=== PATIENT | male | born 1975 | race Hispanic/Latino ===

== ENCOUNTER 2019-09-07 20:37 | Inpatient (IN) | payer BC, OTHER ==
[~2019-09-07 20:37] MED LIST: Heparin 1,000 UNITS/ML VIAL ONE
[2019-09-07] MEDS ORDERED: Promethazine HCl 12.5 MG in Sodium Chloride 0.9% 50 ML IVPB PRN (22:15)
[2019-09-07] MEDS ORDERED: hydrALAZINE 20 MG/ML VIAL SLOW IVP PRN (22:15)
[2019-09-07] MEDS ORDERED: Labetalol HCl 100 MG/20 ML VIAL SLOW IVP PRN (22:15)
[2019-09-07] MEDS ORDERED: cloNIDine 0.1 MG TAB PO PRN (22:15)
[2019-09-07] MEDS ORDERED: Dextrose 50% Abboject 50 ML SYRINGE SLOW IVP PRN (22:16)
[2019-09-07] MEDS ORDERED: Dextrose 5% in Water 1,000 ML IV PRN (22:16)
[2019-09-07] MEDS ORDERED: Senokot S 8.6-50 MG TAB PO PRN (22:24)
[2019-09-07] MEDS ORDERED: Bisacodyl 5 MG TAB PO PRN (22:24)
[2019-09-07] MEDS ORDERED: Bisacodyl 10 MG SUPP PR PRN (22:24)
--- NOTE | 2019-09-07 22:24 | PDOC.HHP ---
Hospitalist HPI - History of Present Illness Abdominal/L shoulder pain History of Present Illness: Patient is a 43 year old male with PMH non insulin dependant DM, HTN who presents as transfer from [facility] ER for L shoulder pain and abdominal pain x 1 day. Patient reports that he developed pain in L shoulder and epigastric associated with shortness of breath yesterday around 330pm, has been intermittent and colicky ever since, associated with shortness of breath and painful breathing, patient denies history of gallstones or abdominal pain after eating, he has not kept down any food since pain began, denies nausea/vomiting/chest pain/dizziness/syncope, no melena or red blood per mouth or anus. At [facility] ED patient found to have a fever to 102, he was unaware of this, initial covid ab screen negative but NAAT pending. His labs were significant for tbili 2.2, glucose 313, WBC 14. CT chest w/ contrast concerning for cholecystitis w hydropic gallbladder as well as hepatic steatosis. His temp was 102.6 on arrival with elevated HR to 126. 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 denies: cough, dry, hemoptysis, SOB with excertion, sputum, wheezing, other Cardiovascular: denies: chest pain, palpitations, orthopnea, paroxysmal noc. dyspnea, edema, light headedness, other Gastrointestinal: reports: abdominal pain. denies: nausea, vomiting, melena, hematochezia Genitourinary: denies: dysuria, frequency Musculoskeletal: reports: neck pain, shoulder pain Skin: denies: rash, lesions Neurological: denies: weakness, numbness All other systems reviewed; all pertinent +/- noted in HPI/Subj Hospitalist History - Past Medical History Other Medical History: DM HTN - Past Surgical History Other Surgical History: no relevant surgical history - Family History Family History: reports: no pertinent history - Social History Smoking Status: Never smoker Alcohol: reports: Rare Drugs: reports: none Hospitalist Results - Labs Additional comment: CT chest w/ contrast concerning for cholecystitis w hydropic gallbladder as well as hepatic steatosis. labs reviewed, see HPI for pertinent abnormal labs. Hospitalist H&P A/P - Plan Plan: Patient is a 43 year old male with PMH non insulin dependant DM, HTN who presents as transfer from [facility] for L shoulder pain and abdominal pain x 1 day. # suspected cholecystitis - CT w/ possible cholecystitis, also elevated Tbili, fever, shoulder pain which may be referred phrenic nerve pain. - admit to covid rule out unit - npo - Dr Hallman consulted by outside ED, will place consult and also consult Dr Handley of GI for ERCP needs - start zosyn, follow blood cultures - follow labs, unable to get lipase at OSH may have pancreatitis as well - IVF - US abdomen # hepatic steatosis - noted, outpatient weight loss recommended # sepsis - suspected due to cholecystitis and choledocolithiasis - treat as above - covid rule out and precautions ordered # DM - continue glipizide hold metformin, SSI # HTN - continue most HTN meds, PRN meds available
[2019-09-07 22:35] LABS: #Lymphocytes 0.9 thou/uL (1.20-3.40); #Neutrophils 10.3 thou/uL (1.40-6.50); %Basophils 0.1 % (0.0-1.0); %Lymphocytes 7.7 % (21.0-51.0); %Monocytes 8.3 % (0.0-10.0); %Neutrophils 83.8 % (42.0-75.0); Mean Corpuscular HGB CONC 34.6 g/dL (32.0-36.0); Mean Corpuscular Hemoglobin 31.8 pg (27.0-31.0); Mean Corpuscular Volume 91.9 fL (78.0-98.0); Mean Platelet Volume 8.3 fL (7.4-10.4); Platelet Count 187 thou/uL (130-400); RBC Distribution Width 11.5 % (11.5-14.5); Red Blood Cell (RBC) Count 5.05 mill/uL (4.70-6.10); White Blood Cell (WBC) Count 12.2 thou/uL (4.8-10.8)
[2019-09-07 22:41] LABS: INR-International Normal Ratio 1.1; Prothrombin Time 14.5 sec (12.0-14.7)
[2019-09-07 22:52] LABS: Lactic Acid 1.4 mmol/L (0.5-2.2)
[2019-09-07 22:57] LABS: ALT (SGPT) 22 U/L (8-55); AST (SGOT) 15 U/L (5-34); Albumin 3.8 g/dL (3.5-5.0); Alkaline Phosphatase 85 U/L (40-110); Anion Gap 14 mmol/L (10-20); BUN (Urea Nitrogen) 9 mg/dL (8.9-20.6); Bilirubin, Total 1.9 mg/dL (0.2-1.2); Calc. Creatinine Clearance 259 mL/min (70-130); Calcium 9.8 mg/dL (7.8-10.44); Carbon Dioxide 22 mmol/L (22-29); Chloride 96 mmol/L (98-107); Estimated GFR-MDRD Greater than 90; Glucose 275 mg/dL (70-105); Lipase 8 U/L (8-78); Magnesium 1.6 mg/dL (1.6-2.6); Potassium 3.4 mmol/L (3.5-5.1); Protein, Total 7.3 g/dL (6.0-8.3); Sodium 129 mmol/L (136-145)
[2019-09-07] MEDS: Piperacillin/Tazobactam 3.375 GM in Sodium Chloride 0.9% 100 ML IVPB SCH (23:08)
[2019-09-07] MEDS: HYDROcodone/Acetaminophen 5/325 mg Tablet PO PRN (23:09)
[2019-09-07] MEDS: Sodium Chloride 0.9% 1,000 ML IV SCH (23:09)
[2019-09-07 23:47] LABS: Hemoglobin A1c 8.4 % (4.0-6.0)
[2019-09-08 02:26] LABS: Bilirubin Negative (Negative); Blood, Urine Negative (Negative); Clarity Extra Turbid (Clear); Glucose, Urine (Dipstick) Greater than 1000 mg/dL (Negative); Leukocyte Negative Leu/uL (Negative); Nitrite Negative (Negative); Protein, Urine (Dipstick) 70 mg/dL (Neg-Trace); RBC/HPF None Seen HPF (0-3); Squamous Epithelial 0-3 HPF (0-3); Urobilinogen Normal mg/dL (Less than 2); WBC/HPF Greater than 50 HPF (0-3)
[2019-09-08 02:34] LABS: Yeast-Budding 2+ HPF (None Seen)
[2019-09-08 02:35] LABS: Bacteria/HPF Rare-Few HPF (None Seen); Urine Culture Reflex Yes Yes
[2019-09-08 05:08] LABS: #Monocytes 1.2 thou/uL (0.11-0.59); #Neutrophils 8.8 thou/uL (1.40-6.50); %Basophils 0.1 % (0.0-1.0); %Eosinophils 0.2 % (0.0-10.0); %Lymphocytes 9.3 % (21.0-51.0); %Monocytes 10.4 % (0.0-10.0); Hemoglobin 15.5 g/dL (14.0-18.0); Mean Corpuscular HGB CONC 32.6 g/dL (32.0-36.0); Mean Corpuscular Hemoglobin 30.4 pg (27.0-31.0); Mean Corpuscular Volume 93.4 fL (78.0-98.0); Mean Platelet Volume 8.5 fL (7.4-10.4); Platelet Count 178 thou/uL (130-400); RBC Distribution Width 11.7 % (11.5-14.5); Red Blood Cell (RBC) Count 5.09 mill/uL (4.70-6.10)
[2019-09-08] MEDS: Piperacillin/Tazobactam 3.375 GM in Sodium Chloride 0.9% 100 ML IVPB SCH ×3 (05:11→16:59)
[2019-09-08 05:25] LABS: ALT (SGPT) 19 U/L (8-55); AST (SGOT) 17 U/L (5-34); Albumin 3.7 g/dL (3.5-5.0); Alkaline Phosphatase 80 U/L (40-110); Anion Gap 13 mmol/L (10-20); BUN (Urea Nitrogen) 11 mg/dL (8.9-20.6); Bilirubin, Direct 0.9 mg/dL (0.1-0.3); Bilirubin, Total 1.9 mg/dL (0.2-1.2); Calc. Creatinine Clearance 272 mL/min (70-130); Calcium 9.3 mg/dL (7.8-10.44); Carbon Dioxide 24 mmol/L (22-29); Chloride 98 mmol/L (98-107); Estimated GFR-MDRD Greater than 90; Glucose 245 mg/dL (70-105); Potassium 3.7 mmol/L (3.5-5.1); Protein, Total 7.3 g/dL (6.0-8.3); Sodium 131 mmol/L (136-145)
[2019-09-08] MEDS: HYDROcodone/Acetaminophen 5/325 mg Tablet PO PRN ×2 (06:29→20:20)
[2019-09-08] MEDS: Carvedilol 6.25 MG TAB PO SCH ×2 (08:20→20:20)
[2019-09-08] MEDS ORDERED: Iopamidol-370 76% 500 ML 1 ML ONE (10:09)
--- NOTE | 2019-09-08 10:21 | CON ---
DATE OF CONSULTATION: 09/08/2019 CHIEF COMPLAINT: Left shoulder and chest pain. HISTORY OF PRESENT ILLNESS: Mr. Bonilla is a 43-year-old man with diabetes and hypertension and obesity, who woke up Wednesday with left shoulder pain. He went to the [facility] ER in [place], and was given some muscle relaxers and pain medicine. He left, and then later that afternoon, the pain worsened and he went back. He developed fever that afternoon. He was given Tylenol No. 3 and advised to follow up the next day. He had a COVID test that was negative. Yesterday, he went back to the ER. He had a CT scan of the chest performed to evaluate the left chest pain. This showed distension of the gallbladder with cholelithiasis and hepatic steatosis. The common bile duct was not commented on. His bilirubin was noted to be mildly elevated, however, his alkaline phosphatase and transaminases were normal. He was transferred to [place] for further evaluation. He reports that the pain is constant, dull aching in the left shoulder to left shoulder blade to the left pectoral area. The pain worsens with deep breath. He has had no associated nausea or abdominal pain. The pain is not affected by eating. He has had no diarrhea, constipation, or blood in the stool. He had a fever at the outside ER of 102 reportedly. His temperature here last night was 100.9 and currently is 99.5. PAST MEDICAL HISTORY: Hypertension, diabetes mellitus, obesity, hyperlipidemia. PAST SURGICAL HISTORY: Negative. FAMILY HISTORY: Negative for GI malignancy and negative for premature heart disease. HABITS: He does not smoke. He drinks 2 or 3 beers 1 or 2 days per week on weekends. No drugs. ALLERGIES: NO KNOWN DRUG ALLERGIES. MEDICATIONS: PRIOR TO ADMISSION: 1. Atorvastatin. 2. Glipizide. 3. Amlodipine. 4. Carvedilol. 5. Lisinopril with hydrochlorothiazide. 6. Metformin. CURRENT INPATIENT MEDICATIONS: 1. Zosyn. 2. MiraLAX. 3. Enoxaparin. 4. Atorvastatin. 5. Amlodipine. 6. Famotidine. 7. Glipizide. REVIEW OF SYSTEMS: Negative x10 systems reviewed except as stated in history of present illness. PHYSICAL EXAMINATION: VITAL SIGNS: Temperature 99.5, pulse 105, blood pressure 145/81. GENERAL: He is in no acute distress. Alert and oriented x3. HEENT: Eyes have no scleral icterus. Oropharynx is clear without lesions. No cervical or supraclavicular lymphadenopathy. LUNGS: Lungs are clear to auscultation bilaterally. HEART: Regular rate and rhythm without murmur. ABDOMEN: Soft, nontender, and nondistended. Bowel sounds are present. EXTREMITIES: No lower extremity edema. LABORATORY DATA: Sodium 131, potassium 3.7, CO2 24, BUN 11, creatinine 0.8, glucose 245. Hemoglobin A1c 8.4. Bilirubin 1.9, direct 0.9, AST 17, ALT 19, alkaline phosphatase 80, lipase 8. He had a CT scan at the outside emergency room of his chest that reportedly showed hydrops of the gallbladder and cholelithiasis. The bile duct was not commented on, and a fatty liver was seen. IMPRESSION: 1. Left-sided chest pain. This is in the setting of fever and tachycardia. He has a mildly elevated white blood cell count of 11.0. He has left chest pain with inspiration, but no other symptoms to suggest gallbladder is a primary source for symptoms. I doubt choledocholithiasis given the normal transaminases and alkaline phosphatase and only mild elevation of the bilirubin with ongoing pain for 3 days. 2. Cholelithiasis. He does not have focal tenderness in the right upper quadrant. He does have diabetes and could have atypical symptoms, however, he does not have an obvious cholecystitis. Ultrasound or MRI will be the next step to assess for obvious gallbladder inflammation. Given that his bilirubin is mildly elevated and GI was consulted for question of choledocholithiasis, I will proceed with MRCP. 3. Morbid obesity with hypertension and diabetes and hyperlipidemia. He will also need a consideration for cardiac source for his pain. CT did not show an infiltrate in his lungs, and his COVID test was reportedly negative. RECOMMENDATIONS: 1. MRCP today. 2. Follow trend of his liver tests. 3. Await blood cultures. 4. Consider etiology for his fever other than choledocholithiasis. 5. Consider cardiac evaluation as well. However, this is not likely. Job ID: [id number]
--- NOTE | 2019-09-08 11:42 | ULT ---
ULTRASOUND ABDOMEN LIMITED: (RIGHT UPPER QUADRANT) DATE: 09/08/2019 HISTORY: 43-year-old female with elevated serum bilirubin. Evaluate for cholecystitis. FINDINGS: Because of body habitus, there is poor visualization of intra-abdominal contents, especially most of the liver, pancreas, and deep, posterior portions of the gallbladder. Common duct caliber 5 mm. Gallbladder lumen mildly distended. Multiple gallstones in the deep dependent portions of the gallbladder body, with the larger ones denisse uring at least 32 mm. Gallbladder wall thickness 3 mm, within normal limits. No pericholecystic fluid identified. No sonogr aphic Ibrahim's sign. No hydronephrosis of right kidney. IMPRESSION: 1. Limited visualization of right upper quadrant contents because of body habitus. 2. Cholelithiasis without sonographic evidence of acute cholecystitis.
[2019-09-08] MEDS: Insulin Regular 300 UNITS/3 ML VIAL SC PRN ×3 (12:18→20:42)
[2019-09-08] MEDS: Acetaminophen 325 MG TAB PO PRN ×2 (12:25→20:25)
[2019-09-08] MEDS: Sodium Chloride 0.9% 1,000 ML IV SCH ×2 (15:00→19:16)
--- NOTE | 2019-09-08 15:41 | PDOC.HOSPP ---
- Subjective Encounter Date: 09/08/19 Encounter Time: 08:15 Subjective: no abd pain or nausea now c/o left sided chest pain worse on deep breathing and left shoulder dyscomfort this pain has been constant 2-3/10 intensity from last evening. No cough or known exposure to covid 19 per patient - Objective Vital Signs & Weight: Vital Signs (12 hours) Temp Pulse Resp BP Pulse Ox 09/08/19 12:27 102.8 F H 104 H 18 155/86 H 92 L 09/08/19 07:12 99.5 F 105 H 18 145/81 H 95 09/08/19 06:05 99.7 F H 102 H 18 153/91 H 92 L Weight Weight 352 lb Result Diagrams: 09/08/19 04:41 09/08/19 04:41 Additional Labs: Accuchecks 09/08/19 09/08/19 12:10 05:19 POC Glucose 263 H 219 H Hospitalist ROS - Medication Medications: Active Medications Generic Name Dose Route Start Last Admin Trade Name Freq PRN Reason Stop Dose Admin Acetaminophen 650 mg 09/07/19 22:24 09/08/19 12:25 Tylenol PO 650 mg Q4H PRN Administration Headache/Fever/Mild Pain (1-3) Hydrocodone Bitart/Acetaminophen 1 tab 09/07/19 22:24 09/08/19 06:29 [place] 5/325 PO 1 tab Q4H PRN Administration Moderate Pain (4-6) Carvedilol 6.25 mg 09/08/19 09:00 09/08/19 08:20 Coreg PO 6.25 mg BID VANDANA Administration Piperacillin Sod/Tazobactam 100 mls @ 200 mls/hr 09/07/19 23:59 09/08/19 12: 17 Sod 3.375 gm/ Sodium Chloride IVPB 100 mls Q6HR VANDANA Administration Sodium Chloride 1,000 mls @ 125 mls/hr 09/07/19 22:30 09/07/19 23:09 Normal Saline 0.9% IV 1,000 mls .Q8H VANDANA Administration Insulin Human Regular 0 units 09/07/19 22:16 09/08/19 12:18 Humulin R SC 6 unit .MODERATE SLIDING SC PRN Administration Moderate Correctional Scale - Exam General Appearance: NAD, awake alert Eye: PERRL, anicteric sclera ENT: no oropharyngeal lesions, moist mucosa Neck: supple, no JVD Heart: RRR, no murmur Respiratory: no wheezes, no rales Gastrointestinal: soft, non-tender, non-distended, normal bowel sounds Extremities: no cyanosis, no edema Neurological: cranial nerve grossly intact, no focal deficits Psychiatric: normal affect, A&O x 3 Hosp A/P (1) Chest pain Code(s): R07.9 - CHEST PAIN, UNSPECIFIED Status: Acute Qualifiers: Chest pain type: chest pain on breathing Qualified Code(s): R07.1 - Chest pain on breathing; R07.81 - Pleurodynia (2) Cholelithiasis Code(s): K80.20 - CALCULUS OF GALLBLADDER W/O CHOLECYSTITIS W/O OBSTRUCTION Status: Acute Qualifiers: Cholelithiasis location: gallbladder Cholecystitis presence: without cholecystitis (3) Fever Code(s): R50.9 - FEVER, UNSPECIFIED Status: Acute Qualifiers: Fever type: unspecified Qualified Code(s): R50.9 - Fever, unspecified (4) Morbid obesity Code(s): E66.01 - MORBID (SEVERE) OBESITY DUE TO EXCESS CALORIES Status: Chronic - Plan CTA chest shows no evidence of infiltrate or perisplenic abscess per report, no PE usg ruq shows cholelithiasis but no obvious signs of cholecystitis (was tech diff study due to body habitus) he has had treadmill stress test in 2013-14 year with no signs of ischemia/cad per patient. has multiple risk factors for cad, will get stress test has fever of 102, unclear source as of now, await surgical opinion he does not fit in MRI scanner for MRCP continue current meds, will f/u His covid 19 pcr at [facility] ER was -ve and CTA is -ve for infiltrate UA is -ve for nitrite and leucocyte esterase
[2019-09-08] MEDS: glipiZIDE 5 MG TAB PO SCH ×2 (16:57→16:58)
[2019-09-08] MEDS: Amlodipine 10 MG TAB PO SCH (16:59)
[2019-09-08] MEDS: Enoxaparin Sodium 40 MG/0.4 ML SYRINGE SC SCH (16:59)
[2019-09-08] MEDS: Atorvastatin Calcium 10 MG TAB PO SCH (16:59)
[2019-09-08] MEDS: Famotidine 20 MG TAB PO SCH ×2 (19:16→20:19)
[2019-09-08] MEDS: Polyethylene Glycol 3350 17 GM Packet PO SCH (19:16)
--- NOTE | 2019-09-08 20:52 | CT ---
CT OF THE ABDOMEN AND PELVIS WITH CONTRAST: 09/08/19 COMPARISON: None. HISTORY: Fever with abdominal pain. TECHNIQUE: Multiple contiguous axial images were obtained in a CT of the abdomen and pelvis with contrast. Sagit heather and coronal reformats were performed. FINDINGS: Calcified gallstones are seen in the gallbladder which is distended. No stranding changes are seen in adjacent to the gallbladder. No focal liver lesions are seen. There are small hypodensities in the r ight kidney which are too small to definitely characterize but may represent small cysts. The adrenal glands, spleen, and pancreas are unremarkable. The large and small bowel are unremarkable. Evaluation on this exam is limited secondary to signific ant streak artifact from the patient's abdominal wall touching the CT gantry. The appendix is normal. No abdominal or pelvic lymphadenopathy are seen. Atherosclerotic calcifications are seen in the aort a. Atelectasis is seen in the left lung base with a trace left pleural effusion. Degenerative changes ar e seen in the spine. The visualized abdominal wall soft tissues are unremarkable. IMPRESSION: 1. Cholelithiasis with distended gallbladder. 2. Likely right renal cyst. 3. Left basilar atelectasis with trace left pleural effusion. POS: EAA
--- NOTE | 2019-09-08 21:50 | CT ---
NONCONTRAST CT CERVICAL SPINE: 09/08/19 HISTORY: Neck and shoulder pain. TECHNIQUE: Contiguous axial CT images were obtained through the cervical spine from the skull base to the level of the cervicothoracic junction. Sagittal and coronal reformat images are provided. FINDINGS: There is straightening of the normal cervical lordotic curvature. The vertebral body heights and inte rvertebral disc spaces are within normal limits. No fracture or subluxation is seen involving the cer vical spine. There is evidence of uncinate process hypertrophy bilaterally at the C3-4 and C4-5 level s resulting in severe left sided neural foraminal narrowing at the C3-4 level and moderate to severe bilateral neural foraminal narrowing at the C4-5 level. There is also mild effacement of the ventral aspect of the central canal at these levels. No prevertebral soft tissue swelling is identified. Lung apices are not well imaged on this exam but the limited visualized right lung apex is clear with suggestion of minimal scarring in the left lung apex. IMPRESSION: 1. Degenerative changes in the cervical spine at the C3-4 and C4-5 levels with narrowing of the neural foramina at these levels due to bony encroachment and primarily secondary to uncinate process hypertrophy and posterior osteophyte formation. 2. No fracture or subluxation involving the cervical spine. 3. Central spinal canal is not well assessed on CT evaluation. POS: CIARRA
[2019-09-09] MEDS: Sodium Chloride 0.9% 1,000 ML IV SCH ×3 (01:00→15:07)
[2019-09-09] MEDS: Piperacillin/Tazobactam 3.375 GM in Sodium Chloride 0.9% 100 ML IVPB SCH ×5 (01:00→23:02)
--- NOTE | 2019-09-09 01:33 | CON ---
DATE OF CONSULTATION: 09/08/2019 CONSULTING PHYSICIAN: Gabe Stone MD. REASON FOR CONSULTATION: Cholelithiasis, fever. HISTORY OF PRESENT ILLNESS: The patient is a 43-year-old morbidly obese male. He has multiple comorbidities including diabetes mellitus, hypertension, morbid obesity, hyperlipidemia. He tells me he developed left shoulder pain Wednesday morning (today is Wednesday). He went to the [facility] emergency room facility. He tells me he underwent extensive evaluation, which I believe included a CT scan of his chest as well as [place] virus testing. He tells me he was there for several hours and was discharged home. He was asked to follow up the next day. When he returned yesterday (), he tells me he was there for another 3 or 4 hours before they eventually transferred him to [facility]. At that facility, he was noted to have cholelithiasis with a hydropic gallbladder when his gallbladder was visualized during a CT scan of his chest. His [place] virus testing was apparently negative. His bilirubin is elevated about 2.1. The patient was transferred to this facility where he was admitted by the Hospitalist Service. He has subsequently been seen in consultation by Gastroenterology (Dr. Handley). The patient tells me he has had no nausea or vomiting. He denies any abdominal pain. He specifically denies any right upper quadrant discomfort now or previously. He focally complains of discomfort in his left upper lateral chest, which he states radiates through to his back and area of his shoulder. He notes that this is exacerbated by deep breath. It is noted that he has been febrile today with a maximum temperature of a 102.8. He is also tachycardic with a heart rate of a little over 100. PAST MEDICAL HISTORY: 1. Morbid obesity. 2. Hypertension. 3. Diabetes mellitus. 4. Hyperlipidemia. PAST SURGICAL HISTORY: None. MEDICATIONS: 1. Atorvastatin. 2. Glipizide. 3. Amlodipine. 4. Carvedilol. 5. Lisinopril with hydrochlorothiazide. 6. Metformin. PRIMARY CARE PHYSICIAN: Dr. Sainz at [facility]. ALLERGIES: NO KNOWN DRUG ALLERGIES. PERSONAL AND SOCIAL HISTORY: He is with 5 children. He works at [employer]. He does not smoke. He drinks occasionally on the weekends, but does not sound like a heavy drinker. REVIEW OF SYSTEMS: Otherwise unremarkable. FAMILY HISTORY: Noncontributory. PHYSICAL EXAMINATION: VITAL SIGNS: As mentioned, he is febrile with a temperature up to 102.8, pulse is 104, blood pressure 155/86. GENERAL: He is a well-developed, well-nourished, very pleasant, but obese male, resting in bed, in no acute distress. He is alert and oriented x3. HEAD, EYES, EARS, NOSE, AND THROAT: Unremarkable. NECK: Supple without mass or tenderness. LUNGS: Clear to auscultation anteriorly and posteriorly. Specific auscultation of the left upper chest reveals no concerning abnormalities. CARDIAC: Regular rate and rhythm without murmur. ABDOMEN: Morbidly obese and challenging to examine. He however does not appear to have any focal tenderness anywhere in his abdomen, specifically in either subcostal region. EXTREMITIES: Unremarkable. LABORATORY DATA: His white blood cell count was elevated yesterday at 12.2, it has dropped today down to 11.0. He does have a left shift with 80% neutrophils. Hemoglobin is stable at 15.5. Coagulation panel is unremarkable. n Chemistries reveal mild hyponatremia but electrolytes otherwise unremarkable. His sugars are elevated between 219 and 260. Bilirubin is 1.9 this morning. Troponin levels have been normal. ASSESSMENT: The patient is morbidly obese and has cholelithiasis as well as leukocytosis and fever. Given the location of his discomfort, I doubt that his fever is related to his gallbladder. I have discussed this with his Gastroenterology and communicated this to the Hospitalist Service. I do not think he has cholecystitis and do not think he requires surgical intervention at this time. I suspect at some point he would benefit from a laparoscopic cholecystectomy in light of his multiple cholelithiasis and his diabetes and obesity. This however does not need to be addressed currently. The patient is already on antibiotics, although this is empiric as I am not certain what would read. His diet may be initiated with clear liquids and probably advance tomorrow. I will continue to follow him, although I do not anticipate surgical intervention. Job ID: [id number]
[2019-09-09] MEDS: Insulin Regular 300 UNITS/3 ML VIAL SC PRN ×3 (05:19→16:55)
[2019-09-09 05:43] LABS: #Neutrophils 5.4 thou/uL (1.40-6.50); %Eosinophils 0.1 % (0.0-10.0); %Lymphocytes 13.5 % (21.0-51.0); %Monocytes 13.6 % (0.0-10.0); %Neutrophils 72.7 % (42.0-75.0); Hemoglobin 14.1 g/dL (14.0-18.0); Mean Corpuscular HGB CONC 32.9 g/dL (32.0-36.0); Mean Corpuscular Hemoglobin 30.3 pg (27.0-31.0); Mean Corpuscular Volume 92.2 fL (78.0-98.0); Mean Platelet Volume 9.1 fL (7.4-10.4); Platelet Count 172 thou/uL (130-400); RBC Distribution Width 11.5 % (11.5-14.5); Red Blood Cell (RBC) Count 4.67 mill/uL (4.70-6.10); White Blood Cell (WBC) Count 7.4 thou/uL (4.8-10.8)
[2019-09-09 06:02] LABS: ALT (SGPT) 27 U/L (8-55); AST (SGOT) 29 U/L (5-34); Albumin 3.5 g/dL (3.5-5.0); Alkaline Phosphatase 75 U/L (40-110); Anion Gap 12 mmol/L (10-20); BUN (Urea Nitrogen) 11 mg/dL (8.9-20.6); Bilirubin, Direct 1.1 mg/dL (0.1-0.3); Bilirubin, Total 1.6 mg/dL (0.2-1.2); Calc. Creatinine Clearance 286 mL/min (70-130); Calcium 8.9 mg/dL (7.8-10.44); Carbon Dioxide 25 mmol/L (22-29); Chloride 97 mmol/L (98-107); Estimated GFR-MDRD Greater than 90; Glucose 220 mg/dL (70-105); Potassium 3.2 mmol/L (3.5-5.1); Sodium 131 mmol/L (136-145)
[2019-09-09] MEDS: glipiZIDE 5 MG TAB PO SCH ×2 (08:36→15:07)
[2019-09-09] MEDS: Polyethylene Glycol 3350 17 GM Packet PO SCH (08:37)
[2019-09-09] MEDS: Carvedilol 6.25 MG TAB PO SCH ×2 (08:56→21:09)
[2019-09-09] MEDS: Amlodipine 10 MG TAB PO SCH (08:56)
[2019-09-09] MEDS: Atorvastatin Calcium 10 MG TAB PO SCH (08:56)
[2019-09-09] MEDS: Enoxaparin Sodium 40 MG/0.4 ML SYRINGE SC SCH (08:56)
[2019-09-09] MEDS: Famotidine 20 MG TAB PO SCH ×2 (08:56→21:09)
[2019-09-09] MEDS ORDERED: Regadenoson 0.4 MG/5 ML SYRINGE ONE (09:46)
--- NOTE | 2019-09-09 12:03 | PDOC.HOSPP ---
- Subjective Encounter Date: 09/09/19 Encounter Time: 10:15 Subjective: has off and on fever some cough this am but no expectoration still has mild left pleuritic chest pain which is not incapacitating him no wounds anywhere including buttock area per patient - Objective Vital Signs & Weight: Vital Signs (12 hours) Temp Pulse Resp BP BP BP Pulse Ox 09/09/19 08:56 94 136/78 94 L 09/09/19 07:14 100.4 F H 94 20 136/78 94 L 09/09/19 03:55 101.1 F H 95 18 130/82 93 L Weight Weight 352 lb I&O: 09/08/19 09/09/19 09/10/19 06:59 06:59 06:59 Intake Total 1300 1080 Output Total 200 Balance 1100 1080 Result Diagrams: 09/09/19 05:25 09/09/19 05:25 Additional Labs: Accuchecks 09/09/19 09/08/19 09/08/19 05:23 20:42 16:00 POC Glucose 218 H 225 H 262 H 09/08/19 12:10 POC Glucose 263 H Hospitalist ROS - Medication Medications: Active Medications Generic Name Dose Route Start Last Admin Trade Name Freq PRN Reason Stop Dose Admin Acetaminophen 650 mg 09/07/19 22:24 09/08/19 20:25 Tylenol PO 650 mg Q4H PRN Administration Headache/Fever/Mild Pain (1-3) Hydrocodone Bitart/Acetaminophen 1 tab 09/07/19 22:24 09/08/19 20:20 [place] 5/325 PO 1 tab Q4H PRN Administration Moderate Pain (4-6) Amlodipine Besylate 10 mg 09/08/19 09:00 09/09/19 08:56 Norvasc PO 10 mg DAILY VANDANA Administration Atorvastatin Calcium 10 mg 09/08/19 09:00 09/09/19 08:56 Lipitor PO 10 mg DAILY VANDANA Administration Carvedilol 6.25 mg 09/08/19 09:00 09/09/19 08:56 Coreg PO 6.25 mg BID VANDANA Administration Enoxaparin Sodium 40 mg 09/08/19 09:00 09/09/19 08:56 Lovenox SC 40 mg 0900 VANDANA Administration Famotidine 20 mg 09/08/19 09:00 05/16/20 08:56 Pepcid PO 20 mg BID VANDANA Administration Glipizide 5 mg 09/08/19 07:30 09/09/19 08:36 Glucotrol PO Not Given BID-AC VANDANA Piperacillin Sod/Tazobactam 100 mls @ 200 mls/hr 09/07/19 23:59 09/09/19 05: 14 Sod 3.375 gm/ Sodium Chloride IVPB 100 mls Q6HR VANDANA Administration Sodium Chloride 1,000 mls @ 125 mls/hr 09/07/19 22:30 09/09/19 05:13 Normal Saline 0.9% IV 1,000 mls .Q8H VANDANA Administration Insulin Human Regular 0 units 09/07/19 22:16 09/09/19 05:19 Humulin R SC 4 unit .MODERATE SLIDING SC PRN Administration Moderate Correctional Scale Polyethylene Glycol 17 gm 09/08/19 09:00 09/09/19 08:37 Miralax PO Not Given DAILY VANDANA Sodium Chloride 10 ml 09/08/19 09:00 09/09/19 08:37 Flush - Normal Saline IVF Not Given Q12HR VANDANA - Exam General Appearance: awake alert Eye: PERRL, anicteric sclera ENT: no oropharyngeal lesions, moist mucosa Neck: supple, no JVD Heart: RRR, no murmur Respiratory: no wheezes, no rales, no ronchi Gastrointestinal: soft, non-tender, non-distended, normal bowel sounds Extremities: no cyanosis, no edema Neurological: cranial nerve grossly intact, no focal deficits Psychiatric: normal affect, A&O x 3 Hosp A/P (1) Chest pain Code(s): R07.9 - CHEST PAIN, UNSPECIFIED Status: Acute Qualifiers: Chest pain type: chest pain on breathing Qualified Code(s): R07.1 - Chest pain on breathing; R07.81 - Pleurodynia (2) Cholelithiasis Code(s): K80.20 - CALCULUS OF GALLBLADDER W/O CHOLECYSTITIS W/O OBSTRUCTION Status: Acute Qualifiers: Cholelithiasis location: gallbladder Cholecystitis presence: without cholecystitis (3) Fever Code(s): R50.9 - FEVER, UNSPECIFIED Status: Acute Qualifiers: Fever type: unspecified Qualified Code(s): R50.9 - Fever, unspecified (4) Morbid obesity Code(s): E66.01 - MORBID (SEVERE) OBESITY DUE TO EXCESS CALORIES Status: Chronic - Plan CTA chest shows no evidence of infiltrate or perisplenic abscess per report, no PE usg ruq shows cholelithiasis but no obvious signs of cholecystitis (was tech diff study due to body habitus) he has had treadmill stress test in 2013-14 year with no signs of ischemia/cad per patient. has multiple risk factors for cad, stress test, he will go for 2nd portion today has fever of 102, unclear source as of now, await ID opinion, ?repeat covid 19, viral pcr for both covid 19 and resp viruses are -ve blood cs 1/2 is growing mssa he does not fit in MRI scanner for MRCP continue current meds, will f/u His covid 19 pcr at [facility] ER was -ve and CTA is -ve for infiltrate UA is -ve for nitrite and leucocyte esterase
--- NOTE | 2019-09-09 12:03 | NM ---
EXAM: NM Cardiac Stress W EF WF PROVIDED CLINICAL HISTORY: Chest pain COMPARISON: None FINDINGS: No significant reversible defect is seen between the stress and resting acquisitions. Gated images de monstrate normal ventricular wall motion and wall thickening. Calculated left ventricular ejection fraction is 55%. IMPRESSION: 1. No significant reversible defect seen to suggest ischemia. 2. LVEF of 55%.
[2019-09-09] MEDS: HYDROcodone/Acetaminophen 5/325 mg Tablet PO PRN ×2 (15:07→23:02)
--- NOTE | 2019-09-09 16:00 | PRG ---
DATE OF SERVICE: 09/09/2019 Mr. Bonilla was initially seen by myself yesterday in regard to his cholelithiasis and concern for gallbladder as source of his fever. I felt that he did not have a gallbladder related findings yesterday. He has been on IV antibiotics, receiving Zosyn. Today, his white blood cell count dropped down from 11 yesterday to 7.4 today. He has a normal differential as well. In spite of these reassuring findings, he remains febrile, having a temperature up to 101.6 earlier today. He has begun coughing and continues to complain of left chest pain. Additionally, his liver function tests reveal that his bilirubin has dropped from 1.9 yesterday to 1.6. Remaining liver function tests are normal. His electrolytes show persistently low sodium and chloride, but his potassium has also dropped down to 3.2. He had an another coronavirus test performed today and he was moved to the coronavirus observation floor. It continues to appear to not be related to his gallbladder. I will continue to follow him during this course. The [place] test results are still pending at this time from today. Job ID: [id number]
[2019-09-09] MEDS: NS 0.9% w/ 20 MEQ KCL 1,000 ML/1,000 ML BAG IV SCH (16:54)
[2019-09-09] MEDS: Guaifenesin DM 100-10/5 ML UDCUP PO PRN ×2 (17:25→23:02)
[2019-09-09] MEDS: Acetaminophen 325 MG TAB PO PRN (17:25)
--- NOTE | 2019-09-10 00:22 | PDOC.EVN ---
Event Note - Event Note Event Note: Notified by RN, Culture Sensitivies (+mssa) showed resistance to Piperacillin. Patient currently on Zosyn. Per Dr. Rivas, Vancomycin added-on, repeat blood cultures. Appears Dr. Cuello (ID) was consulted yesterday afternoon. Further recommendations as per Dr. Cuello.
[2019-09-10] MEDS ORDERED: Vancomycin HCl 2.5 GM in Sodium Chloride 0.9% 500 ML IVPB SCH (02:00)
[2019-09-10] MEDS: Piperacillin/Tazobactam 3.375 GM in Sodium Chloride 0.9% 100 ML IVPB SCH ×2 (05:02→10:53)
[2019-09-10] MEDS: Acetaminophen 325 MG TAB PO PRN ×4 (05:11→20:13)
[2019-09-10 05:56] LABS: ALT (SGPT) 31 U/L (8-55); AST (SGOT) 41 U/L (5-34); Albumin 3.3 g/dL (3.5-5.0); Alkaline Phosphatase 71 U/L (40-110); Anion Gap 13 mmol/L (10-20); BUN (Urea Nitrogen) 8 mg/dL (8.9-20.6); Bilirubin, Direct 0.7 mg/dL (0.1-0.3); Calc. Creatinine Clearance 329 mL/min (70-130); Carbon Dioxide 23 mmol/L (22-29); Chloride 98 mmol/L (98-107); Estimated GFR-MDRD Greater than 90; Glucose 163 mg/dL (70-105); Potassium 3.1 mmol/L (3.5-5.1); Protein, Total 6.6 g/dL (6.0-8.3); Sodium 131 mmol/L (136-145)
[2019-09-10 06:04] LABS: Band 6 % (5-11); Hemoglobin 13.3 g/dL (14.0-18.0); Hypochromia SLIGHT = 6-15 cells (100X) (0-5/hpf); Lymphocytes 7 % (21-51); MDiff Complete? YES; Mean Corpuscular HGB CONC 33.3 g/dL (32.0-36.0); Mean Corpuscular Hemoglobin 30.8 pg (27.0-31.0); Mean Corpuscular Volume 92.4 fL (78.0-98.0); Mean Platelet Volume 9.8 fL (7.4-10.4); Monocytes 12 % (0-10); Neutrophil 75 % (42-75); Platelet Count 159 thou/uL (130-400); Platelet Morphology Comment Appears Adequate; RBC Distribution Width 11.4 % (11.5-14.5); Red Blood Cell (RBC) Count 4.32 mill/uL (4.70-6.10)
[2019-09-10] MEDS: Insulin Regular 300 UNITS/3 ML VIAL SC PRN ×2 (06:20→11:52)
[2019-09-10] MEDS: NS 0.9% w/ 20 MEQ KCL 1,000 ML/1,000 ML BAG IV SCH (07:29)
[2019-09-10] MEDS: Amlodipine 10 MG TAB PO SCH (09:14)
[2019-09-10] MEDS: NS 0.9% w/ 40 MEQ KCL 1,000 ML IV SCH ×2 (09:14→18:03)
[2019-09-10] MEDS: glipiZIDE 5 MG TAB PO SCH ×2 (09:14→15:25)
[2019-09-10] MEDS: Famotidine 20 MG TAB PO SCH ×2 (09:15→20:01)
[2019-09-10] MEDS: Polyethylene Glycol 3350 17 GM Packet PO SCH (09:15)
[2019-09-10] MEDS: Carvedilol 6.25 MG TAB PO SCH ×2 (09:15→20:02)
[2019-09-10] MEDS: Atorvastatin Calcium 10 MG TAB PO SCH (09:15)
[2019-09-10] MEDS: Enoxaparin Sodium 40 MG/0.4 ML SYRINGE SC SCH (09:15)
[2019-09-10] MEDS ORDERED: Vancomycin 1.5 GRAM/300 ML BAG 1.5 GM in Premix Bag 1 BAG IVPB SCH (10:00)
[2019-09-10] MEDS: Guaifenesin DM 100-10/5 ML UDCUP PO PRN (10:53)
[2019-09-10] MEDS ORDERED: hydrALAZINE 20 MG/ML VIAL SLOW IVP PRN ×2 (13:26→13:29)
[2019-09-10] MEDS: CEFAZOLIN 2 GM in Premix Bag 1 BAG IVPB SCH ×2 (13:50→21:35)
[2019-09-10 16:40] LABS: SARS-CoV-2 MS2 Positive; SARS-CoV-2 N Gene Positive; SARS-CoV-2 S Gene Positive; SARS-CoV-2 orf1ab Positive
--- NOTE | 2019-09-10 19:23 | PRG ---
DATE OF SERVICE: 09/10/2019 SUBJECTIVE: Mr. Bonilla remains in the hospital, currently on the observation unit. I spoke to him from the door without entering or examining him. He tells me he has no abdominal pain. He tells me his chest discomfort feels better today as well. I was informed by nursing staff that his COVID-19 test came back as positive, which is not surprising in light of his high fever and normal white blood cell count with no other significant abnormality other than his left chest discomfort. He tells me that he was inadvertently given some solid food, which he ate and tolerated without any discomfort or problems. OBJECTIVE: VITAL SIGNS: On examination, his temperature remains elevated at 102.2 this afternoon. Pulse is between 80 and 93, blood pressure currently is 182/86. ABDOMEN: Not examined, but he denies any discomfort at all. LABORATORY DATA: White blood cell count is normal at 7.0 with a normal differential. Hemoglobin is stable at 13. His bilirubin is down to normal of 1.0. His electrolyte abnormalities persist. ASSESSMENT: The patient clearly still does not have any cholecystitis. I gave him my card and encouraged him to contact me sometime after he recovers from his current illness. I will sign off and see him as needed during this current hospitalization. As mentioned earlier, I would likely recommend an elective laparoscopic cholecystectomy in light of his multiple gallstones and multiple comorbidities. I have discussed this with the patient. I have advanced him up to a 2000-calorie diabetic diet. Job ID: [id number]
--- NOTE | 2019-09-10 20:00 | PDOC.HOSPP ---
- Subjective Encounter Date: 09/10/19 Subjective: The patient has no new complaints today. - Objective Vital Signs & Weight: Vital Signs (12 hours) Temp Pulse Resp BP BP Pulse Ox 09/10/19 16:00 102.2 F H 93 20 182/86 H 94 L 09/10/19 11:55 97.1 F L 80 20 131/66 95 09/10/19 09:15 139/75 09/10/19 09:14 83 09/10/19 09:05 99.4 F 83 18 139/75 95 Weight Weight 352 lb I&O: 09/09/19 09/10/19 09/11/19 06:59 06:59 06:59 Intake Total 1300 3345 1040 Output Total 200 Balance 1100 3345 1040 Result Diagrams: 09/10/19 04:56 09/10/19 04:56 Additional Labs: Accuchecks 09/10/19 09/10/19 09/10/19 15:43 11:44 09:06 POC Glucose 188 H 219 H 158 H 09/10/19 09/09/19 06:18 19:13 POC Glucose 163 H 210 H Hospitalist ROS - Medication Medications: Active Medications Generic Name Dose Route Start Last Admin Trade Name Freq PRN Reason Stop Dose Admin Acetaminophen 650 mg 09/07/19 22:24 09/10/19 15:34 Tylenol PO 650 mg Q4H PRN Administration Headache/Fever/Mild Pain (1-3) Hydrocodone Bitart/Acetaminophen 1 tab 09/07/19 22:24 09/09/19 23:02 [place] 5/325 PO 1 tab Q4H PRN Administration Moderate Pain (4-6) Amlodipine Besylate 10 mg 09/08/19 09:00 09/10/19 09:14 Norvasc PO 10 mg DAILY VANDANA Administration Atorvastatin Calcium 10 mg 09/08/19 09:00 09/10/19 09:15 Lipitor PO 10 mg DAILY VANDANA Administration Carvedilol 6.25 mg 09/08/19 09:00 09/10/19 09:15 Coreg PO 6.25 mg BID VANDANA Administration Enoxaparin Sodium 40 mg 09/08/19 09:00 09/10/19 09:15 Lovenox SC 40 mg 0900 VANDANA Administration Famotidine 20 mg 09/08/19 09:00 09/10/19 09:15 Pepcid PO 20 mg BID VANDANA Administration Glipizide 5 mg 09/08/19 07:30 09/10/19 15:25 Glucotrol PO 5 mg BID-AC VANDANA Administration Guaifenesin/Dextromethorphan 15 ml 09/07/19 22:24 09/10/19 10:53 Robitussin Dm PO 15 ml Q4H PRN Administration Cough Potassium Chloride/Sodium Chloride 1,000 mls @ 100 mls/hr 09/10/19 06:45 18:03 Ns 0.9% W/ 40 Meq Kcl IV 1,000 mls .Q10H VANDANA Administration Cefazolin Sodium/Dextrose 2 gm 50 mls @ 100 mls/hr 09/10/19 14:00 09/10/19 13 :50 / Device IVPB 50 mls Q8HR VANDANA Administration Insulin Human Regular 0 units 09/07/19 22:16 09/10/19 11:52 Humulin R SC 4 unit .MODERATE SLIDING SC PRN Administration Moderate Correctional Scale Polyethylene Glycol 17 gm 09/08/19 09:00 09/10/19 09:15 Miralax PO Not Given DAILY VANDANA Sodium Chloride 10 ml 09/08/19 09:00 09/10/19 09:16 Flush - Normal Saline IVF 10 ml Q12HR VANDANA Administration - Exam General Appearance: awake alert ENT: normocephalic atraumatic Neck: supple Heart: RRR Respiratory: normal chest expansion, no tachypnea Gastrointestinal: soft Neurological: cranial nerve grossly intact, no focal deficits Hosp A/P - Plan Hosp A/P (1) Chest pain Code(s): R07.9 - CHEST PAIN, UNSPECIFIED Status: Acute Qualifiers: Chest pain type: chest pain on breathing Qualified Code(s): R07.1 - Chest pain on breathing; R07.81 - Pleurodynia (2) Cholelithiasis Code(s): K80.20 - CALCULUS OF GALLBLADDER W/O CHOLECYSTITIS W/O OBSTRUCTION Status: Acute Qualifiers: Cholelithiasis location: gallbladder Cholecystitis presence: without cholecystitis (3) Fever Code(s): R50.9 - FEVER, UNSPECIFIED Status: Acute Qualifiers: Fever type: unspecified Qualified Code(s): R50.9 - Fever, unspecified (4) Morbid obesity Code(s): E66.01 - MORBID (SEVERE) OBESITY DUE TO EXCESS CALORIES Status: Chronic - Plan CTA chest shows no evidence of infiltrate or perisplenic abscess per report, no PE usg ruq shows cholelithiasis but no obvious signs of cholecystitis (was tech diff study due to body habitus) he has had treadmill stress test in 2013-14 year with no signs of ischemia/cad per patient. has multiple risk factors for cad, stress test, he will go for 2nd portion today has fever of 102, unclear source as of now, await ID opinion, ?repeat covid 19, viral pcr for both covid 19 and resp viruses are -ve blood cs 1/2 is growing mssa he does not fit in MRI scanner for MRCP continue current meds, will f/u His covid 19 pcr at [facility] ER was -ve and CTA is -ve for infiltrate UA is -ve for nitrite and leucocyte esterase 09/09: Stress test is negative. COVID-19 test is positive. The second blood culture did not show any growth of Streptococcus aureus. The patient is not hypoxic. If he remains stable, we will plan to DC him home tomorrow with proper social distancing recommendations.
--- NOTE | 2019-09-10 21:19 | CON ---
DATE OF CONSULTATION: 09/10/2019 REASON FOR CONSULTATION: Bacteremia. HISTORY OF PRESENT ILLNESS: A 43-year-old, history of type 2 diabetes, obesity, hypertension, who developed thoracic spine pain radiating to the left upper extremity two days before admission. The patient went to the emergency room and was given some injection without improvement, and the pain worsen, and he eventually was admitted. There was a concern with COVID infection because he works at [employer], and I do not see a test result here, but he states that he was negative from the outlying emergency room where he went to, looks like [facility] in [place]. Thus far, we have had concerns with possible cholecystitis, but that has been resolved and does not seem to be an issue there. The patient did have a cervical spine CT, which showed degenerative changes. This does not seem to be the level of the where the symptom is located, which is quite lower than the cervical spine. I would say it is more around T5 through T6 approximately on the left side. He had an abdomen and pelvis CT, which showed the findings that led to the initial concern with cholecystitis, but obviously that is just cholelithiasis without cholecystitis. He did not have any ground-glass opacities seen in the lung, just a small pleural effusion, and now we have 1/2 sets of blood cultures with methicillin-sensitive Staphylococcus aureus. He is still feeling quite intense pain in the thoracic spine area and radiates to the around the shoulder in the anterior chest, left side. No headaches, visual symptoms, sore throat, odynophagia, or dysphagia. No cough, sputum production, or chest pain except for this radiculopathic pain, which I believe is radiculopathic in the left side of the chest. No abdominal pain or diarrhea. No genitourinary symptoms. No other joint symptoms. No lower extremity symptoms. No neurological symptoms. MEDICAL HISTORY: Obesity, type 2 diabetes, hypertension. PAST SURGICAL HISTORY: No surgical procedures. ALLERGIES: NO ALLERGIES REPORTED. CURRENT MEDICATIONS: 1. DuoNeb. 2. Norvasc. 3. Lipitor. 4. Dulcolax. 5. Coreg. 6. He had been on vancomycin. I have switched him to cefazolin. 7. Lovenox. 8. Pepcid. 9. Glucotrol. 10. Normodyne. 11. Morphine. 12. Promethazine. FAMILY HISTORY: Type 2 diabetes. PHYSICAL EXAMINATION: VITAL SIGNS: T-max 102.8, now it is 97.1, blood pressure 130/60, pulse 80, respirations 20, and O2 saturation 95. SKIN: Normal. There is no lymphadenopathy. He has a peripheral IV access. No Castanon catheter. HEENT: Normal. Teeth in pretty good shape. NECK: Supple. No jugular vein distention. Sternoclavicular joints are okay. Shoulders are okay. I could not elicit the pain that he feels as deep in the thoracic area, posterior spine region toward the left. The chest anteriorly is not tender to palpation. LUNGS: Clear to auscultation and percussion. S1 and S2. Regular rate without murmurs. ABDOMEN: Soft. Not distended or tender. No ascites. No bladder distention. No joint inflammatory activity outside the involved area. NEUROLOGIC: Nonfocal. No edema. Plantar responses are flexor without clonus. LABORATORY DATA: Influenza serology negative. Urine with greater than 50 wbc' s. Glucose greater than 1000. WBC 12.2 and now 7.0, hemoglobin 13, platelets 159. Liver profile with slight elevation in AST, bilirubin 0.7, albumin 3.3, and microbiology as noted above. I think we had a COVID test submitted here, but I do not see the results yet. He is still in precautions. ASSESSMENT: 1. Obesity, type 2 diabetes, hypertension. 2. Progressively worsening thoracic spine pain with radiculopathic features and methicillin-sensitive Staph aureus bacteremia. DISCUSSION: The most likely scenario is thoracic spine diskitis, osteomyelitis, possible epidural abscess with radiculopathy. Other possibility would be pneumonia, facet joint infection, and so on that is less likely. He needs an MRI, and it looks like he is too heavy for the MRI. The thoracic spine CT with contrast may help. We will go and start with that, and I think he is going to turner in to be COVID negative but there is concern with the high prevalence of Covid transmission in his job. Hopefully will be able to discontinue these isolation precautions. Switch him to cefazolin. He will need protracted treatment, but it is essential to get an idea what the anatomy of the thoracic spine is, because those cases can progress to 2 more severe manifestations such as paraparesis and so on because of epidural abscess. Job ID: [id number] [facility]
[2019-09-11] MEDS: HYDROcodone/Acetaminophen 5/325 mg Tablet PO PRN ×2 (01:56→21:44)
[2019-09-11] MEDS: Guaifenesin DM 100-10/5 ML UDCUP PO PRN ×2 (02:30→09:36)
[2019-09-11] MEDS: CEFAZOLIN 2 GM in Premix Bag 1 BAG IVPB SCH ×3 (05:37→21:24)
[2019-09-11] MEDS: Acetaminophen 325 MG TAB PO PRN ×4 (05:45→21:25)
[2019-09-11] MEDS: Amlodipine 10 MG TAB PO SCH (09:01)
[2019-09-11] MEDS: NS 0.9% w/ 40 MEQ KCL 1,000 ML IV SCH ×4 (09:01→21:24)
[2019-09-11] MEDS: Carvedilol 6.25 MG TAB PO SCH ×2 (09:01→21:25)
[2019-09-11] MEDS: Atorvastatin Calcium 10 MG TAB PO SCH (09:01)
[2019-09-11] MEDS: glipiZIDE 5 MG TAB PO SCH ×2 (09:01→17:19)
[2019-09-11] MEDS: Enoxaparin Sodium 40 MG/0.4 ML SYRINGE SC SCH (09:02)
[2019-09-11] MEDS: Polyethylene Glycol 3350 17 GM Packet PO SCH (09:02)
[2019-09-11] MEDS: Famotidine 20 MG TAB PO SCH ×2 (09:02→21:25)
[2019-09-11 10:07] LABS: Anion Gap 12 mmol/L (10-20); BUN (Urea Nitrogen) 5 mg/dL (8.9-20.6); Calc. Creatinine Clearance 324 mL/min (70-130); Calcium 8.3 mg/dL (7.8-10.44); Carbon Dioxide 27 mmol/L (22-29); Chloride 98 mmol/L (98-107); Estimated GFR-MDRD Greater than 90; Glucose 137 mg/dL (70-105); Potassium 3.1 mmol/L (3.5-5.1); Sodium 134 mmol/L (136-145)
[2019-09-11] MEDS: Albuterol 200 PUFF (6.7GM INHALER) INH PRN ×2 (14:09→18:15)
--- NOTE | 2019-09-11 18:38 | PDOC.HOSPP ---
- Objective Vital Signs & Weight: Vital Signs (12 hours) Temp Pulse Resp BP BP Pulse Ox 09/11/19 17:20 101.9 F H 09/11/19 16:00 101.1 F H 86 18 157/74 H 157/74 H 96 09/11/19 14:25 101.3 F H 129/60 09/11/19 12:10 101.3 F H 90 20 176/85 H 96 09/11/19 09:08 98.3 F 81 16 156/84 H 97 Weight Weight 352 lb I&O: 09/10/19 09/11/19 09/12/19 06:59 06:59 06:59 Intake Total 3345 1040 Balance 3345 1040 Result Diagrams: 09/10/19 04:56 09/11/19 09:25 Additional Labs: Accuchecks 09/11/19 09/11/19 09/11/19 17:31 12:05 05:43 POC Glucose 144 H 134 H 143 H 09/10/19 20:10 POC Glucose 152 H Hospitalist ROS - Medication Medications: Active Medications Generic Name Dose Route Start Last Admin Trade Name Freq PRN Reason Stop Dose Admin Acetaminophen 650 mg 09/07/19 22:24 09/11/19 17:19 Tylenol PO 650 mg Q4H PRN Administration Headache/Fever/Mild Pain (1-3) Hydrocodone Bitart/Acetaminophen 1 tab 09/07/19 22:24 09/11/19 01:56 [place] 5/325 PO 1 tab Q4H PRN Administration Moderate Pain (4-6) Albuterol Sulfate 2 puff 09/11/19 13:15 09/11/19 14:09 Proventil Hfa INH 2 puff [id number] PRN Administration SOB &/or Wheezing Amlodipine Besylate 10 mg 09/08/19 09:00 09/11/19 09:01 Norvasc PO 10 mg DAILY VANDANA Administration Atorvastatin Calcium 10 mg 09/08/19 09:00 09/11/19 09:01 Lipitor PO 10 mg DAILY VANDANA Administration Carvedilol 6.25 mg 09/08/19 09:00 09/11/19 09:01 Coreg PO 6.25 mg BID VANDANA Administration Clonidine 0.1 mg 09/07/19 22:15 09/11/19 12:32 Catapres PO 0.1 mg BID PRN Administration SBP > 160 use second Enoxaparin Sodium 40 mg 09/08/19 09:00 09/11/19 09:02 Lovenox SC 40 mg 0900 VANDANA Administration Famotidine 20 mg 09/08/19 09:00 09/11/19 09:02 Pepcid PO 20 mg BID VANDANA Administration Glipizide 5 mg 09/08/19 07:30 09/11/19 17:19 Glucotrol PO 5 mg BID-AC VANDANA Administration Guaifenesin/Dextromethorphan 15 ml 09/07/19 22:24 09/11/19 09:36 Robitussin Dm PO 15 ml Q4H PRN Administration Cough Potassium Chloride/Sodium Chloride 1,000 mls @ 100 mls/hr 09/10/19 06:45 11:53 Ns 0.9% W/ 40 Meq Kcl IV 1,000 mls .Q10H VANDANA Administration Cefazolin Sodium/Dextrose 2 gm 50 mls @ 100 mls/hr 09/10/19 14:00 09/11/19 14 :08 / Device IVPB 50 mls Q8HR VANDANA Administration Insulin Human Regular 0 units 09/07/19 22:16 09/10/19 11:52 Humulin R SC 4 unit .MODERATE SLIDING SC PRN Administration Moderate Correctional Scale Polyethylene Glycol 17 gm 09/08/19 09:00 09/11/19 09:02 Miralax PO 17 gm DAILY VANDANA Administration Sodium Chloride 10 ml 09/08/19 09:00 09/11/19 09:02 Flush - Normal Saline IVF 10 ml Q12HR VANDANA Administration - Exam General Appearance: NAD ENT: normocephalic atraumatic Neck: supple, no JVD Heart: RRR Respiratory: normal chest expansion, no tachypnea Extremities: no cyanosis, no clubbing Neurological: cranial nerve grossly intact, no focal deficits Hosp A/P - Plan Hosp A/P (1) Chest pain Code(s): R07.9 - CHEST PAIN, UNSPECIFIED Status: Acute Qualifiers: Chest pain type: chest pain on breathing Qualified Code(s): R07.1 - Chest pain on breathing; R07.81 - Pleurodynia (2) Cholelithiasis Code(s): K80.20 - CALCULUS OF GALLBLADDER W/O CHOLECYSTITIS W/O OBSTRUCTION Status: Acute Qualifiers: Cholelithiasis location: gallbladder Cholecystitis presence: without cholecystitis (3) Fever Code(s): R50.9 - FEVER, UNSPECIFIED Status: Acute Qualifiers: Fever type: unspecified Qualified Code(s): R50.9 - Fever, unspecified (4) Morbid obesity Code(s): E66.01 - MORBID (SEVERE) OBESITY DUE TO EXCESS CALORIES Status: Chronic - Plan CTA chest shows no evidence of infiltrate or perisplenic abscess per report, no PE usg ruq shows cholelithiasis but no obvious signs of cholecystitis (was tech diff study due to body habitus) he has had treadmill stress test in 2013-14 year with no signs of ischemia/cad per patient. has multiple risk factors for cad, stress test, he will go for 2nd portion today has fever of 102, unclear source as of now, await ID opinion, ?repeat covid 19, viral pcr for both covid 19 and resp viruses are -ve blood cs 1/2 is growing mssa he does not fit in MRI scanner for MRCP continue current meds, will f/u His covid 19 pcr at [facility] ER was -ve and CTA is -ve for infiltrate UA is -ve for nitrite and leucocyte esterase 09/09: Stress test is negative. COVID-19 test is positive. The second blood culture did not show any growth of Streptococcus aureus. The patient is not hypoxic. If he remains stable, we will plan to DC him home tomorrow with proper social distancing recommendations. 09/10: The patient remains febrile. Repeat blood cultures are pending. Discussed with ID. Recommended continuing IV antibiotics for suspected spinal osteomyelitis with bacteremia.
[2019-09-11 20:50] LABS: SARS-CoV-2 IgG Index 0.05 S/CO (< 1.40)
[2019-09-11 21:21] LABS: SARS-CoV-2 IgG Ab Non-Reactive (NonReactive)
[2019-09-12] MEDS: Guaifenesin DM 100-10/5 ML UDCUP PO PRN ×3 (00:14→18:39)
[2019-09-12] MEDS: HYDROcodone/Acetaminophen 5/325 mg Tablet PO PRN ×2 (05:08→19:56)
[2019-09-12] MEDS: CEFAZOLIN 2 GM in Premix Bag 1 BAG IVPB SCH ×3 (05:08→19:58)
[2019-09-12] MEDS: Famotidine 20 MG TAB PO SCH ×2 (08:35→19:57)
[2019-09-12] MEDS: glipiZIDE 5 MG TAB PO SCH ×2 (08:35→15:54)
[2019-09-12] MEDS: Carvedilol 6.25 MG TAB PO SCH ×2 (08:36→19:57)
[2019-09-12] MEDS: Amlodipine 10 MG TAB PO SCH (08:36)
[2019-09-12] MEDS: Atorvastatin Calcium 10 MG TAB PO SCH (08:36)
[2019-09-12] MEDS: Enoxaparin Sodium 40 MG/0.4 ML SYRINGE SC SCH (08:37)
[2019-09-12] MEDS: Polyethylene Glycol 3350 17 GM Packet PO SCH (08:38)
[2019-09-12] MEDS: NS 0.9% w/ 40 MEQ KCL 1,000 ML IV SCH ×2 (10:35→11:55)
[2019-09-12] MEDS: Acetaminophen 325 MG TAB PO PRN ×2 (10:36→15:54)
--- NOTE | 2019-09-12 17:00 | PRG ---
DATE OF SERVICE: 09/12/2019 SUBJECTIVE: The patient is more tachypneic, more uncomfortable looking, and somewhat more distress than previously. OBJECTIVE: VITAL SIGNS: His temperature is up to 102, O2 saturations are starting to trend down and they are having to increase his O2 supplementation, BP 120/70, pulse 86. GENERAL: Awake, alert, able to speak in full sentences, but looks less well than previously. LUNGS: Symmetric air entry. HEART: S1 and S2. Regular rate. ABDOMEN: Soft, not distended. EXTREMITIES: Moves extremities equally. LABORATORY DATA: White cell count 7.0, hemoglobin 13, platelets are 159 with 75% neutrophils. Creatinine last checked yesterday was 0.67. He had no antibody detected in the serum. ASSESSMENT: Type 2 diabetes, hypertension, obesity, and COVID-19 infection as well as likely thoracic spine diskitis due to methicillin-sensitive Staphylococcus aureus. The patient currently on cefazolin. I am concerned about his progress in view of the COVID-19 infection. He is starting to need increasing levels of supplementation and we will go ahead and recheck inflammatory markers, D-dimer, CRP, ferritin, LDH. Job ID: [id number]
[2019-09-12] MEDS: Ondansetron PF 4 MG/2 ML Vial IVP PRN (19:57)
--- NOTE | 2019-09-12 21:19 | PDOC.HOSPP ---
- Subjective Encounter Date: 09/12/19 Subjective: The patient was seen in the afternoon today. He was complaining of cough that has been progressively worse. - Objective Vital Signs & Weight: Vital Signs (12 hours) Temp Pulse Resp BP BP Pulse Ox 09/12/19 16:00 100.6 F H 87 24 H 155/76 H 90 L 09/12/19 12:10 99.7 F H 86 20 123/73 92 L Weight Weight 352 lb I&O: 09/11/19 09/12/19 09/13/19 06:59 06:59 06:59 Intake Total 1040 Balance 1040 Result Diagrams: 09/10/19 04:56 09/11/19 09:25 Additional Labs: Accuchecks 09/12/19 09/12/19 09/12/19 16:55 12:06 05:34 POC Glucose 103 110 163 H 09/11/19 21:37 POC Glucose 137 H Hospitalist ROS - Medication Medications: Active Medications Generic Name Dose Route Start Last Admin Trade Name Freq PRN Reason Stop Dose Admin Acetaminophen 650 mg 09/07/19 22:24 09/12/19 15:54 Tylenol PO 650 mg Q4H PRN Administration Headache/Fever/Mild Pain (1-3) Hydrocodone Bitart/Acetaminophen 1 tab 09/07/19 22:24 09/12/19 19:56 [place] 5/325 PO 1 tab Q4H PRN Administration Moderate Pain (4-6) Albuterol Sulfate 2 puff 09/11/19 13:15 09/11/19 18:15 Proventil Hfa INH 2 puff [id number] PRN Administration SOB &/or Wheezing Amlodipine Besylate 10 mg 09/08/19 09:00 09/12/19 08:36 Norvasc PO 10 mg DAILY VANDANA Administration Atorvastatin Calcium 10 mg 09/08/19 09:00 09/12/19 08:36 Lipitor PO 10 mg DAILY VANDANA Administration Carvedilol 6.25 mg 09/08/19 09:00 09/12/19 19:57 Coreg PO 6.25 mg BID VANDANA Administration Clonidine 0.1 mg 09/07/19 22:15 09/11/19 12:32 Catapres PO 0.1 mg BID PRN Administration SBP > 160 use second Enoxaparin Sodium 40 mg 09/08/19 09:00 09/12/19 08:37 Lovenox SC 40 mg 0900 VANDANA Administration Famotidine 20 mg 09/08/19 09:00 09/12/19 19:57 Pepcid PO 20 mg BID VANDANA Administration Glipizide 5 mg 09/08/19 07:30 09/12/19 15:54 Glucotrol PO 5 mg BID-AC VANDANA Administration Potassium Chloride/Sodium Chloride 1,000 mls @ 100 mls/hr 09/10/19 06:45 11:55 Ns 0.9% W/ 40 Meq Kcl IV 1,000 mls .Q10H VANDANA Administration Cefazolin Sodium/Dextrose 2 gm 50 mls @ 100 mls/hr 09/10/19 14:00 09/12/19 19 :58 / Device IVPB 50 mls Q8HR VANDANA Administration Insulin Human Regular 0 units 09/07/19 22:16 09/10/19 11:52 Humulin R SC 4 unit .MODERATE SLIDING SC PRN Administration Moderate Correctional Scale Ondansetron HCl 4 mg 09/07/19 22:15 09/12/19 19:57 Zofran IVP 4 mg Q6H PRN Administration Nausea/Vomiting use 1st Polyethylene Glycol 17 gm 09/08/19 09:00 09/12/19 08:38 Miralax PO 17 gm DAILY VANDANA Administration Sodium Chloride 10 ml 09/08/19 09:00 09/12/19 10:36 Flush - Normal Saline IVF Not Given Q12HR VANDANA - Exam General Appearance: awake alert ENT: normocephalic atraumatic Neck: supple Heart: RRR Respiratory: normal chest expansion, tachypneic Gastrointestinal: soft Neurological: cranial nerve grossly intact, no focal deficits Hosp A/P - Plan Hosp A/P (1) Chest pain Code(s): R07.9 - CHEST PAIN, UNSPECIFIED Status: Acute Qualifiers: Chest pain type: chest pain on breathing Qualified Code(s): R07.1 - Chest pain on breathing; R07.81 - Pleurodynia (2) Cholelithiasis Code(s): K80.20 - CALCULUS OF GALLBLADDER W/O CHOLECYSTITIS W/O OBSTRUCTION Status: Acute Qualifiers: Cholelithiasis location: gallbladder Cholecystitis presence: without cholecystitis (3) Fever Code(s): R50.9 - FEVER, UNSPECIFIED Status: Acute Qualifiers: Fever type: unspecified Qualified Code(s): R50.9 - Fever, unspecified (4) Morbid obesity Code(s): E66.01 - MORBID (SEVERE) OBESITY DUE TO EXCESS CALORIES Status: Chronic - Plan CTA chest shows no evidence of infiltrate or perisplenic abscess per report, no PE usg ruq shows cholelithiasis but no obvious signs of cholecystitis (was tech diff study due to body habitus) he has had treadmill stress test in 2013-14 year with no signs of ischemia/cad per patient. has multiple risk factors for cad, stress test, he will go for 2nd portion today has fever of 102, unclear source as of now, await ID opinion, ?repeat covid 19, viral pcr for both covid 19 and resp viruses are -ve blood cs / is growing mssa he does not fit in MRI scanner for MRCP continue current meds, will f/u His cov[facility] -ve and CTA is -ve for infiltrate UA is -ve for nitrite and leucocyte esterase 09/09: Stress test is negative. COVID-19 test is positive. The second blood culture did not show any growth of Streptococcus aureus. The patient is not hypoxic. If he remains stable, we will plan to DC him home tomorrow with proper social distancing recommendations. 09/10: The patient remains febrile. Repeat blood cultures are pending. Discussed with ID. Recommended continuing IV antibiotics for suspected spinal osteomyelitis with bacteremia. 09/11: Fever is persistent. No the patient is having increasing respiratory symptoms including cough, shortness of breath, and he is requiring more oxygen. It appears that his COVID-19 infection is progressing. The patient is on cefazolin for MSSA bacteremia and possible thoracic spine discitis. Continue supportive care.
[2019-09-12] MEDS ORDERED: Ondansetron ODT 4 MG TAB PO PRN (21:47)
[2019-09-12 22:08] LABS: Anion Gap 14 mmol/L (10-20); BUN (Urea Nitrogen) 5 mg/dL (8.9-20.6); Calc. Creatinine Clearance 324 mL/min (70-130); Carbon Dioxide 22 mmol/L (22-29); Chloride 101 mmol/L (98-107); Estimated GFR-MDRD Greater than 90; Glucose 117 mg/dL (70-105); Magnesium 1.9 mg/dL (1.6-2.6); Potassium 4.3 mmol/L (3.5-5.1); Sodium 133 mmol/L (136-145)
[2019-09-12] MEDS: guaiFENesin/Codeine Phosphate 200 mg/20 mg 10 ml UD Cup PO PRN (22:32)
--- NOTE | 2019-09-12 22:57 | RAD ---
Exam: Chest one view HISTORY:Shortness of breath Comparison: 03/07/2014 FINDINGS: Cardiac silhouette:Cardiomegaly Aorta: Unremarkable Pulmonary vessels: Normal Costophrenic angles: Clear LUNGS: Multi focal interstitial and alveolar opacities. Pneumothorax: None Osseous abnormalities: None IMPRESSION: Multifocal interstitial and alveolar opacities. Correlate for pneumonia.
[2019-09-12] MEDS ORDERED: Furosemide 40 MG/4 ML VIAL SLOW IVP SCH (23:45)
[2019-09-13] MEDS: Benzonatate 100 MG CAP PO PRN ×3 (00:26→15:03)
[2019-09-13] MEDS: Acetaminophen 325 MG TAB PO PRN ×3 (00:52→19:51)
[2019-09-13] MEDS: CEFAZOLIN 2 GM in Premix Bag 1 BAG IVPB SCH ×3 (05:48→22:21)
[2019-09-13] MEDS: guaiFENesin/Codeine Phosphate 200 mg/20 mg 10 ml UD Cup PO PRN ×3 (05:55→21:35)
[2019-09-13] MEDS: Enoxaparin Sodium 40 MG/0.4 ML SYRINGE SC SCH (08:12)
[2019-09-13] MEDS: Famotidine 20 MG TAB PO SCH ×2 (08:13→21:07)
[2019-09-13] MEDS: glipiZIDE 5 MG TAB PO SCH ×2 (08:13→15:02)
[2019-09-13] MEDS: Carvedilol 6.25 MG TAB PO SCH ×2 (08:13→21:07)
[2019-09-13] MEDS: Polyethylene Glycol 3350 17 GM Packet PO SCH (08:13)
[2019-09-13] MEDS: Amlodipine 10 MG TAB PO SCH (08:13)
[2019-09-13] MEDS: Atorvastatin Calcium 10 MG TAB PO SCH (08:13)
[2019-09-13] MEDS ORDERED: Furosemide 40 MG/4 ML VIAL IVP ONE (12:59)
[2019-09-13] MEDS: HYDROcodone/Acetaminophen 5/325 mg Tablet PO PRN (15:01)
[2019-09-13] MEDS ORDERED: Tocilizumab 400 MG in Sodium Chloride 0.9% 80 ML IV SCH (16:00)
[2019-09-13] MEDS: Insulin Regular 300 UNITS/3 ML VIAL SC PRN (17:41)
--- NOTE | 2019-09-13 18:18 | PDOC.HOSPP ---
- Subjective Encounter Date: 09/13/19 Subjective: Respiratory status declining. - Objective Vital Signs & Weight: Vital Signs (12 hours) Temp Pulse Resp BP BP Pulse Ox 09/13/19 17:12 92 L 09/13/19 12:00 97.7 F 74 20 108/61 94 L 09/13/19 11:26 92 L 09/13/19 08:20 101.1 F H 87 20 138/71 94 L 09/13/19 06:24 101.0 F H 86 22 H 149/76 H 92 L Weight Weight 352 lb I&O: 09/12/19 09/13/19 09/14/19 06:59 06:59 06:59 Intake Total 2370 Output Total 1600 Balance 770 Result Diagrams: 09/14/19 06:00 09/14/19 06:00 Additional Labs: Accuchecks 09/13/19 09/13/19 09/12/19 17:01 06:02 20:13 POC Glucose 188 H 128 H 119 H Hospitalist ROS - Medication Medications: Active Medications Generic Name Dose Route Start Last Admin Trade Name Freq PRN Reason Stop Dose Admin Acetaminophen 650 mg 09/07/19 22:24 09/13/19 08:14 Tylenol PO 650 mg Q4H PRN Administration Headache/Fever/Mild Pain (1-3) Hydrocodone Bitart/Acetaminophen 1 tab 09/07/19 22:24 09/13/19 15:01 Fl[place]er 5/325 PO 1 tab Q4H PRN Administration Moderate Pain (4-6) Albuterol Sulfate 2 puff 09/11/19 13:15 09/11/19 18:15 Proventil Hfa INH 2 puff [id number] PRN Administration SOB &/or Wheezing Amlodipine Besylate 10 mg 09/08/19 09:00 09/13/19 08:13 Norvasc PO 10 mg DAILY VANDANA Administration Atorvastatin Calcium 10 mg 09/08/19 09:00 09/13/19 08:13 Lipitor PO 10 mg DAILY VANDANA Administration Benzonatate 100 mg 09/13/19 00:18 09/13/19 15:03 Tessalon PO 100 mg TIDPRN PRN Administration Cough Carvedilol 6.25 mg 09/08/19 09:00 09/13/19 08:13 Coreg PO 6.25 mg BID VANDANA Administration Clonidine 0.1 mg 09/07/19:15 09/11/19 12:32 Catapres PO 0.1 mg BID PRN Administration SBP > 160 use second Enoxaparin Sodium 40 mg 09/08/19 09:00 09/13/19 08:12 Lovenox SC 40 mg 0900 VANADNA Administration Famotidine 20 mg 09/08/19 09:00 09/13/19 08:13 Pepcid PO 20 mg BID VANDANA Administration Glipizide 5 mg 09/08/19 07:30 09/13/19 15:02 Glucotrol PO 5 mg BID-AC VANDANA Administration Guaifenesin/Codeine Phosphate 10 ml 09/12/19 21:05 09/13/19 15:11 Robitussin Ac PO 10 ml Q6H PRN Administration Cough Cefazolin Sodium/Dextrose 2 gm 50 mls @ 100 mls/hr 09/10/19 14:00 09/13/19 15 :00 / Device IVPB 50 mls Q8HR VANDANA Administration Tocilizumab 400 mg/ Sodium 100 mls @ 100 mls/hr 09/13/19 16:00 09/13/19 17:35 Chloride IV 09/14/19 08:00 100 mls 1600 VANDANA Administration Insulin Human Regular 0 units 09/07/19 22:16 09/13/19 17:41 Humulin R SC 2 unit .MODERATE SLIDING SC PRN Administration Moderate Correctional Scale Ondansetron HCl 4 mg 09/07/19 22:15 09/12/19 19:57 Zofran IVP 4 mg Q6H PRN Administration Nausea/Vomiting use 1st Polyethylene Glycol 17 gm 09/08/19 09:00 09/13/19 08:13 Miralax PO 17 gm DAILY VANDANA Administration Sodium Chloride 10 ml 09/08/19 09:00 09/13/19 08:13 Flush - Normal Saline IVF 10 ml Q12HR VANDANA Administration - Exam General Appearance: awake alert ENT: normocephalic atraumatic Heart - other findings: tachycardia Respiratory: rhonchi Neurological: cranial nerve grossly intact, no focal deficits Hosp A/P - Plan Hosp A/P (1) Chest pain Code(s): R07.9 - CHEST PAIN, UNSPECIFIED Status: Acute Qualifiers: Chest pain type: chest pain on breathing Qualified Code(s): R07.1 - Chest pain on breathing; R07.81 - Pleurodynia (2) Cholelithiasis Code(s): K80.20 - CALCULUS OF GALLBLADDER W/O CHOLECYSTITIS W/O OBSTRUCTION Status: Acute Qualifiers: Cholelithiasis location: gallbladder Cholecystitis presence: without cholecystitis (3) Fever Code(s): R50.9 - FEVER, UNSPECIFIED Status: Acute Qualifiers: Fever type: unspecified Qualified Code(s): R50.9 - Fever, unspecified (4) Morbid obesity Code(s): E66.01 - MORBID (SEVERE) OBESITY DUE TO EXCESS CALORIES Status: Chronic - Plan CTA chest shows no evidence of infiltrate or perisplenic abscess per report, no PE usg ruq shows cholelithiasis but no obvious signs of cholecystitis (was tech diff study due to body habitus) he has had treadmill stress test in 2013-14 year with no signs of ischemia/cad per patient. has multiple risk factors for cad, stress test, he will go for 2nd portion today has fever of 102, unclear source as of now, await ID opinion, ?repeat covid 19, viral pcr for both covid 19 and resp viruses are -ve blood cs 04/27 is growing mssa he does not fit in MRI scanner for MRCP continue current meds, will f/u His covid 19 pcr at [facility] ER was -ve and CTA is -ve for infiltrate UA is -ve for nitrite and leucocyte esterase 09/09: Stress test is negative. COVID-19 test is positive. The second blood culture did not show any growth of Streptococcus aureus. The patient is not hypoxic. If he remains stable, we will plan to DC him home tomorrow with proper social distancing recommendations. 09/10: The patient remains febrile. Repeat blood cultures are pending. Discussed with ID. Recommended continuing IV antibiotics for suspected spinal osteomyelitis with bacteremia. 09/11: Fever is persistent. No the patient is having increasing respiratory symptoms including cough, shortness of breath, and he is requiring more oxygen. It appears that his COVID-19 infection is progressing. The patient is on cefazolin for MSSA bacteremia and possible thoracic spine discitis. Continue supportive care. 09/12: Still febrile. CXR showing worsening infiltrates. He is now requiring HFNC. Transferred to CCU. Might be a candidate for convalescent plasma therapy.
--- NOTE | 2019-09-14 00:54 | CON ---
DATE OF CONSULTATION: 09/13/2019 HISTORY OF PRESENT ILLNESS: Billy Bonilla is a 43-year-old male, who works at [employer]. He was identified with COVID-19. Over the last 24 hours, he has had a decline in gas exchange. It has also been noted that first three days he was here, he was almost 6 L positive, although his output is not really recorded at all because he was voiding in the toilet. He has diffuse infiltrates on his chest radiograph. He has been transferred to the ICU at my request for further care anticipating he might decline before he improves. PAST MEDICAL HISTORY: Remarkable for; 1. Hypertension. 2. Diabetes. 3. Obesity. 4. Lipid disorder. FAMILY HISTORY: Negative for lung disease in early age. SOCIAL HISTORY: He is a smoker and a beer drinker, but does not drink every day. ALLERGIES: HE HAS NO DRUG ALLERGIES. MEDICATIONS: Prior to admission, he is on; 1. Atorvastatin. 2. Glipizide. 3. Amlodipine. 4. Coreg. 5. Lisinopril. 6. Hydrochlorothiazide. 7. Metformin. REVIEW OF SYSTEMS: Otherwise negative. Actually, surprisingly says he does not feel worse than when he came in. PHYSICAL EXAMINATION: VITAL SIGNS: He was noted to be febrile earlier today. Actually, surprisingly also he was not tachypneic. He had a face mask at 50% on. His saturations were in the low to mid 90s, heart rate was in the 70s, and blood pressure 108/61. LUNGS: Distant. HEART: Regular rhythm. ABDOMEN: Soft. EXTREMITIES: Without asymmetry. NEUROLOGIC: Nonfocal. LABORATORY DATA: White count 7, hemoglobin 13.3, platelets 159. Sodium 133, potassium 4.3, chloride 101, bicarb 22, BUN 5, creatinine 0.67. IMPRESSION: COVID pneumonia, it appears to be developing. We transferred to critical care unit. He will be given an IL-6 inhibitor. He will be given convalescent plasma. Antiviral therapy may be coming available here soon, but at this point in time, the above will be started. He will be given a dose of IV Lasix anticipating that hopefully diuresis may help a little bit with his pulmonary findings. At this point in time, he appears to have more shunt physiology than lung compliance issues. It does not clinically appear that he needs intubation at this point in time. This is a 70-minute consult, 50% of the time spent on the unit coordinating care. Job ID: [id number] MTDD
[2019-09-14] MEDS: Benzonatate 100 MG CAP PO PRN ×2 (05:59→20:02)
[2019-09-14] MEDS: Acetaminophen 325 MG TAB PO PRN ×3 (05:59→20:06)
[2019-09-14] MEDS: CEFAZOLIN 2 GM in Premix Bag 1 BAG IVPB SCH ×3 (06:28→21:54)
[2019-09-14 06:33] LABS: Hemoglobin 13.8 g/dL (14.0-18.0); Hypochromia SLIGHT = 6-15 cells (100X) (0-5/hpf); Lymphocytes 34 % (21-51); MDiff Complete? YES; Mean Corpuscular HGB CONC 34.6 g/dL (32.0-36.0); Mean Corpuscular Hemoglobin 31.9 pg (27.0-31.0); Mean Corpuscular Volume 92.2 fL (78.0-98.0); Mean Platelet Volume 7.8 fL (7.4-10.4); Monocytes 7 % (0-10); Neutrophil 59 % (42-75); Platelet Count 268 thou/uL (130-400); Platelet Morphology Comment Appears Adequate; RBC Distribution Width 11.5 % (11.5-14.5); Red Blood Cell (RBC) Count 4.31 mill/uL (4.70-6.10)
[2019-09-14 06:35] LABS: Anion Gap 12 mmol/L (10-20); BUN (Urea Nitrogen) 6 mg/dL (8.9-20.6); Calc. Creatinine Clearance 329 mL/min (70-130); Calcium 7.9 mg/dL (7.8-10.44); Carbon Dioxide 32 mmol/L (22-29); Chloride 95 mmol/L (98-107); Estimated GFR-MDRD Greater than 90; Glucose 102 mg/dL (70-105); Potassium 3.3 mmol/L (3.5-5.1); Sodium 136 mmol/L (136-145)
[2019-09-14] MEDS: Famotidine 20 MG TAB PO SCH ×2 (07:18→20:03)
[2019-09-14] MEDS: Carvedilol 6.25 MG TAB PO SCH ×2 (07:18→20:03)
[2019-09-14] MEDS: Amlodipine 10 MG TAB PO SCH (07:18)
[2019-09-14] MEDS: Enoxaparin Sodium 80 MG/0.8 ML SYRINGE SC SCH ×2 (07:18→20:03)
[2019-09-14] MEDS: Atorvastatin Calcium 10 MG TAB PO SCH (07:19)
[2019-09-14] MEDS: Polyethylene Glycol 3350 17 GM Packet PO SCH (07:19)
[2019-09-14] MEDS: glipiZIDE 5 MG TAB PO SCH ×2 (07:19→15:37)
--- NOTE | 2019-09-14 08:17 | RAD ---
PORTABLE CHEST: DATE: 09/14/2019. PROVIDED CLINICAL HISTORY: Pneumonia. FINDINGS: Comparison 09/12/2019. Diffuse bilateral airspace disease persists, similar to prior. Cardiac and me diastinal silhouette is without significant change. There is no pleural fluid or pneumothorax appare nt. IMPRESSION: Persistent diffuse bilateral airspace disease. POS: GIN
[2019-09-14] MEDS: Potassium Chloride 20 MEQ TAB PO SCH ×2 (10:04→16:57)
--- NOTE | 2019-09-14 10:26 | PRG ---
DATE OF SERVICE: 09/14/2019 SUBJECTIVE: Billy Bonilla is clinically stable. OBJECTIVE: VITAL SIGNS: His heart rate is in the 60s to 70s. His temperature appears to be trending down. His last fever was last night at 2117 hours. LUNGS: Unchanged. HEART: Unchanged. ABDOMEN: Unchanged. DIAGNOSTIC DATA: Chest radiograph still shows diffuse alveolar infiltrates. He had a fluid balance of positive 62 mL after his Lasix. His potassium is low after the Lasix 40 of potassium this morning, 40 this afternoon. His renal function remained stable. His creatinine is 0.6. His D-dimer is elevated. He was started empirically on Lovenox at 1 mg/kg total per day. We will try to minimize FiO2 with a goal sat of 90%. His work of breathing has not increased suggesting that this is all shunt physiology. There is no reason to consider intubation at this point in time. He will remain in the Critical Care Unit. Critical care time 30 min. Job ID: [id number] MTDD
[2019-09-14] MEDS ORDERED: Potassium Chloride 20 MEQ TAB PO SCH ×2 (11:00→13:15)
--- NOTE | 2019-09-14 11:55 | PQF ---
DATE: 09-14-19 ATTN: DR. DENI WISDOM Please exercise your independent, professional judgment in responding to the clarification form. Clinical indicators are provided on the bottom of this form for your review Please check appropriate box(s) to clarify if the following diagnosis has been ruled in or ruled out: SEPSIS [ >] Ruled in diagnosis [ ] Continue to treat [ ] Resolved [ ] Ruled out diagnosis [ ] Other diagnosis [ ] Unable to determine In addition, please specify: Present on Admission (POA): [ >] Yes [ ] No [ ] Unable to determine For continuity of documentation, please document condition throughout progress notes and discharge summary. Thank You. CLINICAL INDICATORS - SIGNS / SYMPTOMS / LABS / RESULTS AND LOCATION IN MR: H&P 09-07-19: HIS TEMP WAS 102.6 ON ARRIVAL WITH ELEVATED HR TO 126, POSSIBLE COVID EXPOSURE AT WORK [employer] H&P 09-07-19: SEPSIS, SUSPECTED D/T CHOLECYSTITIS AND CHOLEDOCHOLITHIASIS, COVID R/O AND PRECAUTIONS ORDERED PN DR. HARRELL 09-13-19: FEVER IS PERSISTENT, PT IS HAVING INCREASING RESPIRATORY SYMPTOMS INCLUDING COUGHING, SOB, AND HE IS REQUIRING MORE OXYGEN. IT APPEARS THAT HIS COVID 19 INFECTION IS PROGRESSING. THE PT IS ON CEFAZOLIN FOR MSSA BACTEREMIA AND POSSIBLE THORACIC SPINE DISCITIS. CXR SHOWING WORSENING INFILTRATES. RISK FACTORS / RESULTS AND LOCATION IN MR: H&P 09-07-19: HIS TEMP WAS 102.6 ON ARRIVAL WITH ELEVATED HR TO 126, POSSIBLE COVID EXPOSURE AT WORK [employer] PN DR. HARRELL 09-13-19: FEVER IS PERSISTENT, PT IS HAVING INCREASING RESPIRATORY SYMPTOMS INCLUDING COUGHING, SOB, AND HE IS REQUIRING MORE OXYGEN. IT APPEARS THAT HIS COVID 19 INFECTION IS PROGRESSING. THE PT IS ON CEFAZOLIN FOR MSSA BACTEREMIA AND POSSIBLE THORACIC SPINE DISCITIS. CXR SHOWING WORSENING INFILTRATES. TREATMENTS / RESULTS AND LOCATION IN MR: MAR: 09-10-19: ANCEF IV (This form is maintained as a part of the permanent medical record) 2014 Project [email or web address], [email or web address]. All Rights Reserved CLEMENTE [email or web address] [email or web address]
--- NOTE | 2019-09-14 13:26 | PDOC.HOSPP ---
- Subjective Encounter Date: 09/14/19 Subjective: SOB and cough improving. - Objective Vital Signs & Weight: Vital Signs (12 hours) Temp Pulse BP Pulse Ox 09/14/19 07:54 99.2 F 09/14/19 07:42 97 09/14/19 07:18 78 142/76 H 09/14/19 07:00 99.2 F 09/14/19 05:00 99.3 F 09/14/19 01:56 90 L Weight Weight 352 lb Most Recent Monitor Data Heart Rate from ECG 61 NIBP 138/72 NIBP BP-Mean 94 Respiration from ECG 22 SpO2 96 I&O: 09/13/19 09/14/19 09/15/19 06:59 06:59 06:59 Intake Total 2837 400 Output Total 2775 380 Balance 62 20 Result Diagrams: 09/14/19 06:00 09/14/19 06:00 Additional Labs: Accuchecks 09/14/19 09/13/19 09/13/19 11:32 21:19 17:01 POC Glucose 119 H 131 H 188 H 09/13/19 11:08 POC Glucose 118 H Hospitalist ROS - Medication Medications: Active Medications Generic Name Dose Route Start Last Admin Trade Name Freq PRN Reason Stop Dose Admin Acetaminophen 650 mg 09/07/19 22:24 09/14/19 05:59 Tylenol PO 650 mg Q4H PRN Administration Headache/Fever/Mild Pain (1-3) Hydrocodone Bitart/Acetaminophen 1 tab 09/07/19 22:24 09/13/19 15:01 [place] 5/325 PO 1 tab Q4H PRN Administration Moderate Pain (4-6) Albuterol Sulfate 2 puff 09/11/19 13:15 09/11/19 18:15 Proventil Hfa INH 2 puff [id number] PRN Administration SOB &/or Wheezing Amlodipine Besylate 10 mg 09/08/19 09:00 09/14/19 07:18 Norvasc PO 10 mg DAILY VANDANA Administration Atorvastatin Calcium 10 mg 09/08/19 09:00 09/14/19 07:19 Lipitor PO 10 mg DAILY VANDANA Administration Benzonatate 100 mg 09/13/19 00:18 09/14/19 05:59 Tessalon PO 100 mg TIDPRN PRN Administration Cough Carvedilol 6.25 mg 09/08/19 09:00 09/14/19 07:18 Coreg PO 6.25 mg BID VANDANA Administration Clonidine 0.1 mg 09/07/19 22:15 09/11/19 12:32 Catapres PO 0.1 mg BID PRN Administration SBP > 160 use second Enoxaparin Sodium 80 mg 09/14/19 09:00 09/14/19 07:18 Lovenox SC 80 mg 0900,2100 VANDANA Administration Famotidine 20 mg 09/08/19 09:00 09/14/19 07:18 Pepcid PO 20 mg BID VANDANA Administration Glipizide 5 mg 09/08/19 07:30 09/14/19 07:19 Glucotrol PO 5 mg BID-AC VANDANA Administration Guaifenesin/Codeine Phosphate 10 ml 09/12/19 21:05 09/13/19 21:35 Robitussin Ac PO 10 ml Q6H PRN Administration Cough Cefazolin Sodium/Dextrose 2 gm 50 mls @ 100 mls/hr 09/10/19 14:00 09/14/19 06 :28 / Device IVPB 50 mls Q8HR VANDANA Administration Insulin Human Regular 0 units 09/07/19 22:16 09/13/19 17:41 Humulin R SC 2 unit .MODERATE SLIDING SC PRN Administration Moderate Correctional Scale Ondansetron HCl 4 mg 09/07/19 22:15 09/12/19 19:57 Zofran IVP 4 mg Q6H PRN Administration Nausea/Vomiting use 1st Polyethylene Glycol 17 gm 09/08/19 09:00 09/14/19 07:19 Miralax PO Not Given DAILY VANDANA Potassium Chloride 40 meq 09/14/19 09:00 09/14/19 10:04 K-Dur PO 09/14/19 18:01 40 meq 0900,1800 VANDANA Administration Sodium Chloride 10 ml 09/08/19 09:00 09/14/19 07:22 Flush - Normal Saline IVF 10 ml Q12HR VANDANA Administration - Exam General Appearance: awake alert ENT: normocephalic atraumatic Heart: RRR Respiratory: normal chest expansion, no tachypnea Gastrointestinal: soft Neurological: cranial nerve grossly intact, no focal deficits Hosp A/P - Plan Hosp A/P (1) Chest pain Code(s): R07.9 - CHEST PAIN, UNSPECIFIED Status: Acute Qualifiers: Chest pain type: chest pain on breathing Qualified Code(s): R07.1 - Chest pain on breathing; R07.81 - Pleurodynia (2) Cholelithiasis Code(s): K80.20 - CALCULUS OF GALLBLADDER W/O CHOLECYSTITIS W/O OBSTRUCTION Status: Acute Qualifiers: Cholelithiasis location: gallbladder Cholecystitis presence: without cholecystitis (3) Fever Code(s): R50.9 - FEVER, UNSPECIFIED Status: Acute Qualifiers: Fever type: unspecified Qualified Code(s): R50.9 - Fever, unspecified (4) Morbid obesity Code(s): E66.01 - MORBID (SEVERE) OBESITY DUE TO EXCESS CALORIES Status: Chronic - Plan CTA chest shows no evidence of infiltrate or perisplenic abscess per report, no PE usg ruq shows cholelithiasis but no obvious signs of cholecystitis (was tech diff study due to body habitus) he has had treadmill stress test in 2013-14 year with no signs of ischemia/cad per patient. has multiple risk factors for cad, stress test, he will go for 2nd portion today has fever of 102, unclear source as of now, await ID opinion, ?repeat covid 19, viral pcr for both covid 19 and resp viruses are -ve blood cs / is growing mssa he does not fit in MRI scanner for MRCP continue current meds, will f/u His covid 19 pcr at [facility] was -ve and CTA is -ve for infiltrate UA is -ve for nitrite and leucocyte esterase 09/09: Stress test is negative. COVID-19 test is positive. The second blood culture did not show any growth of Streptococcus aureus. The patient is not hypoxic. If he remains stable, we will plan to DC him home tomorrow with proper social distancing recommendations. 09/10: The patient remains febrile. Repeat blood cultures are pending. Discussed with ID. Recommended continuing IV antibiotics for suspected spinal osteomyelitis with bacteremia. 09/11: Fever is persistent. No the patient is having increasing respiratory symptoms including cough, shortness of breath, and he is requiring more oxygen. It appears that his COVID-19 infection is progressing. The patient is on cefazolin for MSSA bacteremia and possible thoracic spine discitis. Continue supportive care. 09/12: Still febrile. CXR showing worsening infiltrates. He is now requiring HFNC. Transferred to CCU. Might be a candidate for convalescent plasma therapy. 09/13: On 60% HFNC. Lymphopenia is present. On Cefazolin for MSSA bactremia. Therapeutic Lovenox initiated prophylactically for elevated D dimer.
[2019-09-14] MEDS: guaiFENesin/Codeine Phosphate 200 mg/20 mg 10 ml UD Cup PO PRN ×2 (14:51→22:02)
--- NOTE | 2019-09-14 16:31 | PRG ---
DATE OF SERVICE: 09/14/2019 SUBJECTIVE: Mr. Bonilla is in the ICU. He got convalescent plasma as well as tocilizumab and is sitting by the bedside. There, he appears comfortable. He is on high-flow O2 now, and his temperature came down a bit after a steady temperature elevation throughout the past few days. His O2 sats are ranging from 88 to 92 with high-flow nasal cannula. OBJECTIVE: GENERAL: Oriented. Follows commands. HEENT: Ocular movements conjugate. Not coughing as much. LUNGS: Symmetric air entry. HEART: S1 and S2, regular rate. ABDOMEN: Soft, not distended. LABORATORY DATA: White cell count 3.0, hemoglobin 13.8, and platelets 268 with a normal differential. Sodium 136, creatinine 0.66. Ferritin was 2737, will have to be repeated. CRP was 14.61 and is now down to 13.43 and D-dimer is up to 3.99. He is currently on cefazolin for his staphylococcal infection. He is receiving enoxaparin 80 mg q.12 hours. ASSESSMENT AND DISCUSSION: Methicillin-susceptible Staphylococcus aureus bacteremia likely with thoracic spine infection. The pain is improving there and he was able to stay prone for a while yesterday, and he unfortunately has COVID-19 as well together and pretty severe case and has received a convalescent plasma and tocilizumab. We will continue monitoring. Job ID: [id number]
[2019-09-14] MEDS: Morphine 2 MG/ML SYRINGE SLOW IVP PRN (22:01)
[2019-09-15] MEDS: Benzonatate 100 MG CAP PO PRN ×2 (02:48→12:12)
[2019-09-15] MEDS: Morphine 2 MG/ML SYRINGE SLOW IVP PRN (03:15)
[2019-09-15 03:19] LABS: Actual Bicarbonate (HCO3a) 30.6 mEq/L (22-28); Analyzer IN Cardio ER; Base Excess (BEa) 5.9 mEq/L (-2.0 to +3.0); CO2 Tension 44.9 mmHg (35.0-45.0); Calcium, Ionized (arterial) 1.13 mmol/L (1.12-1.30); Carboxyhemoglobin (COHb) 0.1 gm% (0.0-3.0); Potassium - ABG Lab 3.54 mmol/L (3.70-5.30); pH, Arterial 7.45 (7.35-7.45)
[2019-09-15] MEDS: guaiFENesin/Codeine Phosphate 200 mg/20 mg 10 ml UD Cup PO PRN ×2 (03:57→22:30)
[2019-09-15 04:41] LABS: O2 Tension (PaO2), arterial 45.3 mmHg (80.0-100.0)
[2019-09-15 04:42] LABS: ALV-art Gradient 611.575 (0-20); Puncture Site RBA
[2019-09-15] MEDS: CEFAZOLIN 2 GM in Premix Bag 1 BAG IVPB SCH ×3 (05:35→21:33)
[2019-09-15 05:50] LABS: Anion Gap 11 mmol/L (10-20); BUN (Urea Nitrogen) 6 mg/dL (8.9-20.6); Calc. Creatinine Clearance 329 mL/min (70-130); Carbon Dioxide 32 mmol/L (22-29); Chloride 96 mmol/L (98-107); Estimated GFR-MDRD Greater than 90; Glucose 136 mg/dL (70-105); Hemoglobin 13.3 g/dL (14.0-18.0); Mean Corpuscular HGB CONC 33.2 g/dL (32.0-36.0); Mean Corpuscular Hemoglobin 30.8 pg (27.0-31.0); Mean Corpuscular Volume 92.6 fL (78.0-98.0); Mean Platelet Volume 7.2 fL (7.4-10.4); Platelet Count 323 thou/uL (130-400); Potassium 3.6 mmol/L (3.5-5.1); RBC Distribution Width 11.4 % (11.5-14.5); Red Blood Cell (RBC) Count 4.33 mill/uL (4.70-6.10); Sodium 135 mmol/L (136-145); White Blood Cell (WBC) Count 4.6 thou/uL (4.8-10.8)
[2019-09-15 05:55] LABS: Band 6 % (5-11); Eosinophils 1 % (0-10); Lymphocytes 18 % (21-51); MDiff Complete? YES; Monocytes 5 % (0-10); Neutrophil 69 % (42-75); Reactive Lymphocytes 1 % (0-10)
[2019-09-15] MEDS: Albuterol 200 PUFF (6.7GM INHALER) INH SCH ×5 (07:00→23:02)
--- NOTE | 2019-09-15 07:56 | RAD ---
SINGLE VIEW OF THE CHEST: COMPARISON: 09/14/2019. HISTORY: Ventilated patient with respiratory failure. FINDINGS: A single view of the chest shows an enlarged but stable cardiomediastinal silhouette. There are stab le multifocal airspace opacities in the lungs. IMPRESSION: Stable multifocal pneumonia. POS: EAA
[2019-09-15] MEDS: Atorvastatin Calcium 10 MG TAB PO SCH (08:09)
[2019-09-15] MEDS: glipiZIDE 5 MG TAB PO SCH ×2 (08:10→15:40)
[2019-09-15] MEDS: Carvedilol 6.25 MG TAB PO SCH ×2 (08:10→20:31)
[2019-09-15] MEDS: Enoxaparin Sodium 80 MG/0.8 ML SYRINGE SC SCH ×2 (08:10→20:32)
[2019-09-15] MEDS: Famotidine 20 MG TAB PO SCH ×2 (08:10→20:31)
[2019-09-15] MEDS: Amlodipine 10 MG TAB PO SCH (08:10)
[2019-09-15] MEDS: Polyethylene Glycol 3350 17 GM Packet PO SCH (08:11)
[2019-09-15] MEDS ORDERED: methylPREDNISolone Sod Succ 40 MG VIAL IVP SCH (12:45)
[2019-09-15] MEDS ORDERED: Furosemide 100 MG/10 ML VIAL SLOW IVP SCH (12:45)
[2019-09-15] MEDS: methylPREDNISolone Sod Succ 40 MG VIAL IVP SCH (13:13)
[2019-09-15] MEDS: HYDROcodone/Acetaminophen 5/325 mg Tablet PO PRN (15:39)
[2019-09-15] MEDS: Insulin Regular 300 UNITS/3 ML VIAL SC PRN ×2 (15:52→21:34)
--- NOTE | 2019-09-15 18:50 | PDOC.HOSPP ---
- Subjective Encounter Date: 09/15/19 Subjective: The patient is becoming increasingly hypoxemic. He was transitioned from high flow nasal cannula to BiPAP today. - Objective Vital Signs & Weight: Vital Signs (12 hours) Temp Pulse BP Pulse Ox 09/15/19 16:00 99.3 F 09/15/19 12:00 98.8 F 09/15/19 11:15 62 09/15/19 08:10 66 149/81 H 09/15/19 07:37 66 95 09/15/19 07:16 95 09/15/19 07:00 98 F Weight Weight 352 lb Most Recent Monitor Data Heart Rate from ECG 66 NIBP 130/75 NIBP BP-Mean 93 Respiration from ECG 25 SpO2 90 I&O: 09/14/19 09/15/19 09/16/19 06:59 06:59 06:59 Intake Total 2837 2323 856 Output Total 2775 1490 2350 Balance 62 833 -1494 Result Diagrams: 09/15/19 05:20 09/15/19 05:20 Additional Labs: Accuchecks 09/15/19 09/14/19 15:52 19:38 POC Glucose 215 H 114 H Hospitalist ROS - Medication Medications: Active Medications Generic Name Dose Route Start Last Admin Trade Name Freq PRN Reason Stop Dose Admin Acetaminophen 650 mg 09/07/19 22:24 09/14/19 20:06 Tylenol PO 650 mg Q4H PRN Administration Headache/Fever/Mild Pain (1-3) Hydrocodone Bitart/Acetaminophen 1 tab 09/07/19 22:24 09/15/19 15:39 Amma 5/325 PO 1 tab Q4H PRN Administration Moderate Pain (4-6) Albuterol Sulfate 2 puff 09/15/19 06:30 09/15/19 14:30 Proventil Hfa INH 2 puff [id number] VANDANA Administration Amlodipine Besylate 10 mg 09/08/19 09:00 09/15/19 08:10 Norvasc PO 10 mg DAILY VANDANA Administration Atorvastatin Calcium 10 mg 09/08/19 09:00 09/15/19 08:09 Lipitor PO 10 mg DAILY VANDANA Administration Benzonatate 100 mg 09/13/19 00:18 09/15/19 12:12 Tessalon PO 100 mg TIDPRN PRN Administration Cough Carvedilol 6.25 mg 09/08/19 09:00 09/15/19 08:10 Coreg PO 6.25 mg BID VANDANA Administration Clonidine 0.1 mg 09/07/19 22:15 09/11/19 12:32 Catapres PO 0.1 mg BID PRN Administration SBP > 160 use second Enoxaparin Sodium 80 mg 09/14/19 09:00 09/15/19 08:10 Lovenox SC 80 mg 0900,2100 VANDANA Administration Famotidine 20 mg 09/08/19 09:00 09/15/19 08:10 Pepcid PO 20 mg BID VANDANA Administration Glipizide 5 mg 09/08/19 07:30 09/15/19 15:40 Glucotrol PO 5 mg BID-AC VANDANA Administration Guaifenesin/Codeine Phosphate 10 ml 09/12/19 21:05 09/15/19 03:57 Robitussin Ac PO 10 ml Q6H PRN Administration Cough Cefazolin Sodium/Dextrose 2 gm 50 mls @ 100 mls/hr 09/10/19 14:00 09/15/19 13 :14 / Device IVPB 50 mls Q8HR VANDANA Administration Insulin Human Regular 0 units 09/07/19 22:16 09/15/19 15:52 Humulin R SC 4 unit .MODERATE SLIDING SC PRN Administration Moderate Correctional Scale Methylprednisolone Sodium Succinate 80 mg 09/16/19 09:00 09/15/19 13:13 Solu-Medrol IVP 80 mg DAILY VANDANA Administration Morphine Sulfate 2 mg 09/07/19 22:15 09/15/19 03:15 Morphine SLOW IVP 2 mg Q4H PRN Administration severe pain 4-10 Ondansetron HCl 4 mg 09/07/19 22:15 09/12/19 19:57 Zofran IVP 4 mg Q6H PRN Administration Nausea/Vomiting use 1st Polyethylene Glycol 17 gm 09/08/19 09:00 09/15/19 08:11 Miralax PO Not Given DAILY VANDANA Sodium Chloride 10 ml 09/08/19 09:00 09/15/19 08:11 Flush - Normal Saline IVF 10 ml Q12HR VANDANA Administration - Exam General Appearance: NAD, awake alert ENT: normocephalic atraumatic Neck: supple, no JVD Heart: RRR Respiratory: normal chest expansion, no tachypnea Extremities: no cyanosis Neurological: cranial nerve grossly intact, no focal deficits Hosp A/P - Plan Hosp A/P (1) Chest pain Code(s): R07.9 - CHEST PAIN, UNSPECIFIED Status: Acute Qualifiers: Chest pain type: chest pain on breathing Qualified Code(s): R07.1 - Chest pain on breathing; R07.81 - Pleurodynia (2) Cholelithiasis Code(s): K80.20 - CALCULUS OF GALLBLADDER W/O CHOLECYSTITIS W/O OBSTRUCTION Status: Acute Qualifiers: Cholelithiasis location: gallbladder Cholecystitis presence: without cholecystitis (3) Fever Code(s): R50.9 - FEVER, UNSPECIFIED Status: Acute Qualifiers: Fever type: unspecified Qualified Code(s): R50.9 - Fever, unspecified (4) Morbid obesity Code(s): E66.01 - MORBID (SEVERE) OBESITY DUE TO EXCESS CALORIES Status: Chronic Pneumonia due to COVID-19 associated with acute respiratory failure with hypoxia. Patient is requiring more oxygen and now on BiPAP. Status post IL 6 inhibitor and convalescent plasma. ID and pulmonology on board. On IV antibiotics for MSSA bacteremia with suspected spinal osteomyelitis. Will require CT scan of the thoracic and lumbar spine when his condition is stable.
--- NOTE | 2019-09-15 19:06 | PRG ---
DATE OF SERVICE: 09/15/2019 SUBJECTIVE: The patient had a rough time early this morning, a little better today, had to be placed on BiPAP for a period of time. He is awake, oriented, now back on high-flow nasal cannula. OBJECTIVE: VITAL SIGNS: His T-max 100.5, now is 99.3, BP 130/70, pulse 65, FiO2 is 50%, O2 saturation is 92. LUNGS: The exam shows symmetric air entry with diminished breath sounds at bases. HEART: S1, S2. Regular rate. ABDOMEN: Soft. Chest x-ray is stable. Multifocal pneumonia. The patient continues on cefazolin and he had his convalescent plasma administration and he is on Medrol, now 80 mg daily. ASSESSMENT/DISCUSSION: Methicillin-sensitive Staphylococcus aureus bacteremia with severe COVID infection. He continues to not do well. He is kind of borderline for intubation. Hopefully, he will turn around in the next few days. He is on proper anticoagulation prophylaxis. This is getting close to the first week of illness. Still a long way to go. Job ID: [id number]
--- NOTE | 2019-09-15 22:13 | PRG ---
DATE OF SERVICE: 09/15/2019 SUBJECTIVE: Mr. Bonilla denies shortness of breath. He transiently required BiPAP for hypoxemia. We are hoping to get him back to high-flow cannula and decrease his FiO2. O2 saturation of 88 to 92 is fine. There are no other changes reported. Talking to him, he was sitting in the chair wearing a BiPAP mask, so again we are trying to switch him back to high-flow. Hopefully, he is turning the corner. Radiographically, he still has a very abnormal chest x-ray. LABORATORY DATA: White count 4.6, hemoglobin 13.3, platelets down to 323. Electrolytes are unremarkable. C-reactive protein is down to 4.9. IMPRESSION: 1. COVID-19 pneumonia. 2. Staph aureus bacteremia. 3. Obesity. Hopefully, he is stabilizing. Critical care time 35 min. Job ID: [id number] MTDD
[2019-09-16] MEDS: Albuterol 200 PUFF (6.7GM INHALER) INH SCH ×6 (02:55→22:34)
[2019-09-16] MEDS: HYDROcodone/Acetaminophen 5/325 mg Tablet PO PRN ×3 (04:16→21:36)
[2019-09-16] MEDS: guaiFENesin/Codeine Phosphate 200 mg/20 mg 10 ml UD Cup PO PRN ×3 (04:18→21:36)
[2019-09-16] MEDS: Insulin Regular 300 UNITS/3 ML VIAL SC PRN ×4 (04:18→21:37)
[2019-09-16 04:42] LABS: Anion Gap 14 mmol/L (10-20); BUN (Urea Nitrogen) 8 mg/dL (8.9-20.6); CRP (Inflammatory) 2.37 mg/dL (= or < 0.5); Calc. Creatinine Clearance 315 mL/min (70-130); Calcium 8.2 mg/dL (7.8-10.44); Carbon Dioxide 30 mmol/L (22-29); Chloride 94 mmol/L (98-107); Estimated GFR-MDRD Greater than 90; Glucose 196 mg/dL (70-105); Potassium 3.4 mmol/L (3.5-5.1); Sodium 135 mmol/L (136-145)
[2019-09-16 05:35] LABS: Band 7 % (5-11); Eosinophils 2 % (0-10); Hemoglobin 14.5 g/dL (14.0-18.0); Lymphocytes 17 % (21-51); MDiff Complete? YES; Mean Corpuscular HGB CONC 33.4 g/dL (32.0-36.0); Mean Corpuscular Hemoglobin 30.6 pg (27.0-31.0); Mean Corpuscular Volume 91.6 fL (78.0-98.0); Mean Platelet Volume 7.3 fL (7.4-10.4); Monocytes 8 % (0-10); Neutrophil 66 % (42-75); Platelet Count 380 thou/uL (130-400); RBC Distribution Width 11.3 % (11.5-14.5); Red Blood Cell (RBC) Count 4.73 mill/uL (4.70-6.10); White Blood Cell (WBC) Count 4.5 thou/uL (4.8-10.8)
[2019-09-16] MEDS: CEFAZOLIN 2 GM in Premix Bag 1 BAG IVPB SCH ×3 (06:10→21:36)
[2019-09-16] MEDS: methylPREDNISolone Sod Succ 40 MG VIAL IVP SCH (08:09)
[2019-09-16] MEDS: Amlodipine 10 MG TAB PO SCH (08:09)
[2019-09-16] MEDS: Famotidine 20 MG TAB PO SCH ×2 (08:09→20:13)
[2019-09-16] MEDS: Carvedilol 6.25 MG TAB PO SCH ×2 (08:10→20:13)
[2019-09-16] MEDS: Atorvastatin Calcium 10 MG TAB PO SCH (08:10)
[2019-09-16] MEDS: glipiZIDE 5 MG TAB PO SCH ×2 (08:10→15:57)
[2019-09-16] MEDS: Enoxaparin Sodium 80 MG/0.8 ML SYRINGE SC SCH ×2 (08:11→20:13)
[2019-09-16] MEDS: Polyethylene Glycol 3350 17 GM Packet PO SCH (08:45)
--- NOTE | 2019-09-16 08:49 | RAD ---
CHEST 1 VIEW: Date: 09/16/2019 HISTORY: Follow-up respiratory insufficiency. COMPARISON: 09/15/2019. FINDINGS: Again noted are fairly extensive bilateral ground-glass opacity changes with some improved aeration n oted bilaterally. No significant new process. Heart size is stable. IMPRESSION: Overall stable to slightly improving bilateral alveolar and ground-glass opacity changes since the pr ior study. POS: [facility]
[2019-09-16] MEDS: Benzonatate 100 MG CAP PO PRN ×2 (10:56→22:41)
--- NOTE | 2019-09-16 11:08 | PDOC.HOSPP ---
- Subjective Encounter Date: 09/16/19 Encounter Time: 11:06 Subjective: Patient reports she is now having a little bit of loose stools. Does not feel significantly short of breath. Still has some cough. - Objective Vital Signs & Weight: Vital Signs (12 hours) Temp Pulse BP Pulse Ox 09/16/19 08:10 136/76 09/16/19 08:09 55 L 136/76 09/16/19 07:05 89 L 09/16/19 04:00 99.4 F 09/16/19 00:00 99.1 F Weight Weight 352 lb Most Recent Monitor Data Heart Rate from ECG 69 NIBP 131/75 NIBP BP-Mean 93 Respiration from ECG 29 SpO2 86 I&O: 09/15/19 09/16/19 09/17/19 06:59 06:59 06:59 Intake Total 2323 1148 240 Output Total 1490 3575 250 Balance 833 -2427 -10 Result Diagrams: 09/16/19 03:45 09/16/19 03:45 Additional Labs: Accuchecks 09/16/19 09/15/19 09/15/19 03:52 21:29 15:52 POC Glucose 201 H 251 H 215 H Hospitalist ROS - Medication Medications: Active Medications Generic Name Dose Route Start Last Admin Trade Name Freq PRN Reason Stop Dose Admin Acetaminophen 650 mg 09/07/19 22:24 09/14/19 20:06 Tylenol PO 650 mg Q4H PRN Administration Headache/Fever/Mild Pain (1-3) Hydrocodone Bitart/Acetaminophen 1 tab 09/07/19 22:24 09/16/19 10:55 Ashby 5/325 PO 1 tab Q4H PRN Administration Moderate Pain (4-6) Albuterol Sulfate 2 puff 09/15/19 06:30 09/16/19 10:08 Proventil Hfa INH 2 puff [id number] VANDANA Administration Amlodipine Besylate 10 mg 09/08/19 09:00 09/16/19 08:09 Norvasc PO 10 mg DAILY VANDANA Administration Atorvastatin Calcium 10 mg 09/08/19 09:00 09/16/19 08:10 Lipitor PO 10 mg DAILY VANDANA Administration Benzonatate 100 mg 09/13/19 00:18 09/16/19 10:56 Tessalon PO 100 mg TIDPRN PRN Administration Cough Carvedilol 6.25 mg 09/08/19 09:00 09/16/19 08:10 Coreg PO 6.25 mg BID VANDANA Administration Clonidine 0.1 mg 09/07/19 22:15 09/11/19 12:32 Catapres PO 0.1 mg BID PRN Administration SBP > 160 use second Enoxaparin Sodium 80 mg 09/14/19 09:00 09/16/19 08:11 Lovenox SC 80 mg 0900,2100 VANDANA Administration Famotidine 20 mg 09/08/19 09:00 09/16/19 08:09 Pepcid PO 20 mg BID VANDANA Administration Glipizide 5 mg 09/08/19 07:30 09/16/19 08:10 Glucotrol PO 5 mg BID-AC VANDANA Administration Guaifenesin/Codeine Phosphate 10 ml 09/12/19 21:05 09/16/19 10:55 Robitussin Ac PO 10 ml Q6H PRN Administration Cough Cefazolin Sodium/Dextrose 2 gm 50 mls @ 100 mls/hr 09/10/19 14:00 09/16/19 06 :10 / Device IVPB 50 mls Q8HR VANDANA Administration Insulin Human Regular 0 units 09/07/19 22:16 09/16/19 04:18 Humulin R SC 4 unit .MODERATE SLIDING SC PRN Administration Moderate Correctional Scale Methylprednisolone Sodium Succinate 80 mg 09/16/19 09:00 09/16/19 08:09 Solu-Medrol IVP 80 mg DAILY VANDANA Administration Morphine Sulfate 2 mg 09/07/19 22:15 09/15/19 03:15 Morphine SLOW IVP 2 mg Q4H PRN Administration severe pain 4-10 Ondansetron HCl 4 mg 09/07/19 22:15 09/12/19 19:57 Zofran IVP 4 mg Q6H PRN Administration Nausea/Vomiting use 1st Polyethylene Glycol 17 gm 09/08/19 09:00 09/16/19 08:45 Miralax PO Not Given DAILY VANDANA Sodium Chloride 10 ml 09/08/19 09:00 09/16/19 08:12 Flush - Normal Saline IVF 10 ml Q12HR VANDANA Administration - Exam General Appearance: NAD, awake alert General - other findings: Morbidly obese Neck: supple, symmetric, no JVD, no thyromegaly, no lymphadenopathy, no carotid bruit Heart: RRR, no murmur, no gallops, no rubs, normal peripheral pulses Respiratory: CTAB, no wheezes, no rales, no ronchi, normal chest expansion, no tachypnea, normal percussion Gastrointestinal: soft, non-tender, non-distended, normal bowel sounds, no palpable masses, no hepatomegaly, no splenomegaly, no bruit Extremities: no cyanosis, no clubbing, no edema Skin: normal turgor Neurological: no focal deficits Musculoskeletal: normal tone Psychiatric: normal affect, normal behavior, A&O x 3 Hosp A/P (1) COVID-19 Code(s): U07.1 - COVID-19 Status: Acute (2) Acute respiratory failure with hypoxia Code(s): J96.01 - ACUTE RESPIRATORY FAILURE WITH HYPOXIA Status: Acute (3) Obstructive sleep apnea Code(s): G47.33 - OBSTRUCTIVE SLEEP APNEA (ADULT) (PEDIATRIC) Status: Acute (4) Cholelithiasis Code(s): K80.20 - CALCULUS OF GALLBLADDER W/O CHOLECYSTITIS W/O OBSTRUCTION Status: Acute Qualifiers: Cholelithiasis location: gallbladder Cholecystitis presence: without cholecystitis (5) Morbid obesity Code(s): E66.01 - MORBID (SEVERE) OBESITY DUE TO EXCESS CALORIES Status: Chronic (6) Diabetes mellitus Code(s): E11.9 - TYPE 2 DIABETES MELLITUS WITHOUT COMPLICATIONS Status: Acute (7) Hyperlipidemia Code(s): E78.5 - HYPERLIPIDEMIA, UNSPECIFIED Status: Acute (8) Hypertension Code(s): I10 - ESSENTIAL (PRIMARY) HYPERTENSION Status: Acute - Plan Patient initially presented with what appeared to be more pleuritic type chest pain with evidence of cholelithiasis. He subsequently developed a cough and was tested for COVID again which was positive. Subsequently the patient has had a fairly typical severe COVID infection type case. He is developed worsening hypoxia. He has been on BiPAP but is now down to high flow nasal cannula at 60 L/min. He has received convalescent plasma and IL-6 inhibitor. Currently his oxygen saturations are in the upper 80s to low 90s. Pulmonology is following. That appears to be the goal for his oxygen. He does appear to be slowly improving. He is fully anticoagulated with Lovenox. ID following. Remains on once daily Solu-Medrol. Blood sugars running slightly high. Continuing with sliding scale insulin. Continue home dose of Glucotrol. Continue Coreg and clonidine for blood pressure.
--- NOTE | 2019-09-16 11:09 | PRG ---
DATE OF SERVICE: 09/16/2019 SUBJECTIVE: Billy Bonilla says he is feeling better. He is still sitting up in a chair on high-flow oxygen. OBJECTIVE: VITAL SIGNS: Blood pressure 131/75, heart rate 69, and respiratory rate in the 20s. It is otherwise unchanged. LABORATORY DATA: White count 4.5, hemoglobin 14.5, and platelets 380. Sodium 135, potassium 3.4, chloride 94, bicarb 30, BUN 8, and creatinine 0.69. IMPRESSION: 1. COVID pneumonia, slowly improving. 2. Staphylococcus bacteremia, clinically stable. PLAN: Continue critical care, weaning oxygen as tolerated to a goal sat of around or just over 90%. Critical care time was 40 min. Job ID: [id number] MTDD
[2019-09-17] MEDS: Albuterol 200 PUFF (6.7GM INHALER) INH SCH ×6 (03:25→22:25)
[2019-09-17] MEDS: guaiFENesin/Codeine Phosphate 200 mg/20 mg 10 ml UD Cup PO PRN ×3 (03:26→21:45)
[2019-09-17] MEDS: HYDROcodone/Acetaminophen 5/325 mg Tablet PO PRN ×2 (03:26→21:45)
[2019-09-17 05:19] LABS: Anion Gap 12 mmol/L (10-20); BUN (Urea Nitrogen) 9 mg/dL (8.9-20.6); CRP (Inflammatory) 1.14 mg/dL (= or < 0.5); Calc. Creatinine Clearance 320 mL/min (70-130); Calcium 8.4 mg/dL (7.8-10.44); Carbon Dioxide 31 mmol/L (22-29); Chloride 96 mmol/L (98-107); Estimated GFR-MDRD Greater than 90; Glucose 161 mg/dL (70-105); Potassium 3.4 mmol/L (3.5-5.1); Sodium 136 mmol/L (136-145)
[2019-09-17 05:23] LABS: Band 11 % (5-11); Hemoglobin 14.2 g/dL (14.0-18.0); Lymphocytes 14 % (21-51); MDiff Complete? YES; Mean Corpuscular HGB CONC 34.4 g/dL (32.0-36.0); Mean Corpuscular Hemoglobin 31.5 pg (27.0-31.0); Mean Corpuscular Volume 91.7 fL (78.0-98.0); Mean Platelet Volume 7.4 fL (7.4-10.4); Monocytes 4 % (0-10); Neutrophil 71 % (42-75); Platelet Count 424 thou/uL (130-400); RBC Distribution Width 11.3 % (11.5-14.5); Red Blood Cell (RBC) Count 4.52 mill/uL (4.70-6.10)
[2019-09-17] MEDS: CEFAZOLIN 2 GM in Premix Bag 1 BAG IVPB SCH ×3 (06:23→21:42)
[2019-09-17] MEDS: Famotidine 20 MG TAB PO SCH ×2 (08:02→19:23)
[2019-09-17] MEDS: Polyethylene Glycol 3350 17 GM Packet PO SCH (08:02)
[2019-09-17] MEDS: Enoxaparin Sodium 80 MG/0.8 ML SYRINGE SC SCH ×2 (08:02→19:23)
[2019-09-17] MEDS: glipiZIDE 5 MG TAB PO SCH ×2 (08:02→18:43)
[2019-09-17] MEDS: Amlodipine 10 MG TAB PO SCH (08:02)
[2019-09-17] MEDS: methylPREDNISolone Sod Succ 40 MG VIAL IVP SCH (08:03)
[2019-09-17] MEDS: Atorvastatin Calcium 10 MG TAB PO SCH (08:05)
--- NOTE | 2019-09-17 08:42 | RAD ---
PORTABLE CHEST ONE VIEW: HISTORY: Respiratory insufficiency. COMPARISON: 09/16/2019 FINDINGS/IMPRESSION: Stable fairly extensive bilateral alveolar and ground glass opacity changes throughout both lungs wit h minimal cardiomegaly. No significant new process. Continue short-term followup. POS: [facility]
[2019-09-17] MEDS: Benzonatate 100 MG CAP PO PRN (10:04)
[2019-09-17] MEDS: Carvedilol 6.25 MG TAB PO SCH ×2 (11:32→19:23)
--- NOTE | 2019-09-17 13:45 | PRG ---
DATE OF SERVICE: 09/17/2019 SUBJECTIVE: Billy Bonilla says he is feeling better. He is sitting up in a chair. OBJECTIVE: VITAL SIGNS: Blood pressure 146/87, heart rate is in 60s, respiratory rates in the teens. He is still on high-flow oxygen. He is afebrile. LUNGS: Otherwise unchanged. HEART: Otherwise unchanged. ABDOMEN: Otherwise unchanged. LABORATORY DATA: White count 10.0, hemoglobin 14.2, platelets 424. Sodium 136, potassium 3.4, chloride 96, bicarb 31, BUN 9, creatinine 0.68. PLAN: To switch him to Eliquis at some point. He is on Lovenox 80 twice a day at this time. He is on Pepcid for GI prophylaxis and oral agents for his diabetes. He has had the tocilizumab and had convalescent plasma. I will decrease his steroid dosing in the next couple of days. Critical care time 35 min. Job ID: [id number] MTDD
[2019-09-17] MEDS: Insulin Regular 300 UNITS/3 ML VIAL SC PRN ×2 (14:51→22:21)
--- NOTE | 2019-09-17 16:36 | PDOC.HOSPP ---
- Subjective Encounter Date: 09/17/19 Subjective: Patient appears to be less symptomatic. Has been up in chair today. - Objective Vital Signs & Weight: Vital Signs (12 hours) Temp Pulse Ox 09/17/19 15:32 93 L 09/17/19 11:00 97.7 F 09/17/19 08:00 97.2 F L 90 L Weight Weight 352 lb Most Recent Monitor Data Heart Rate from ECG 63 NIBP 145/78 NIBP BP-Mean 100 Respiration from ECG 26 SpO2 92 I&O: 09/16/19 09/17/19 09/18/19 06:59 06:59 06:59 Intake Total 1148 1092 590 Output Total 2225 9554 1200 Balance -2427 -1433 -610 Result Diagrams: 09/17/19 03:45 09/17/19 03:45 Additional Labs: Accuchecks 09/17/19 09/16/19 03:54 20:22 POC Glucose 173 H 281 H Hospitalist ROS - Medication Medications: Active Medications Generic Name Dose Route Start Last Admin Trade Name Freq PRN Reason Stop Dose Admin Acetaminophen 650 mg 09/07/19 22:24 09/14/19 20:06 Tylenol PO 650 mg Q4H PRN Administration Headache/Fever/Mild Pain (1-3) Hydrocodone Bitart/Acetaminophen 1 tab 09/07/19 22:24 09/17/19 03:26 [place] 5/325 PO 1 tab Q4H PRN Administration Moderate Pain (4-6) Albuterol Sulfate 2 puff 09/15/19 06:30 09/17/19 14:57 Proventil Hfa INH 2 puff [id number] VANDANA Administration Amlodipine Besylate 10 mg 09/08/19 09:00 09/17/19 08:02 Norvasc PO 10 mg DAILY VANDANA Administration Atorvastatin Calcium 10 mg 09/08/19 09:00 09/17/19 08:05 Lipitor PO 10 mg DAILY VANDANA Administration Benzonatate 100 mg 09/13/19 00:18 09/17/19 10:04 Tessalon PO 100 mg TIDPRN PRN Administration Cough Carvedilol 6.25 mg 09/08/19 09:00 09/17/19 11:32 Coreg PO 6.25 mg BID VANDANA Administration Clonidine 0.1 mg 09/07/19 22:15 09/11/19 12:32 Catapres PO 0.1 mg BID PRN Administration SBP > 160 use second Enoxaparin Sodium 80 mg 09/14/19 09:00 09/17/19 08:02 Lovenox SC 80 mg 0900,2100 VANDANA Administration Famotidine 20 mg 09/08/19 09:00 09/17/19 08:02 Pepcid PO 20 mg BID VANDANA Administration Glipizide 5 mg 09/08/19 07:30 09/17/19 08:02 Glucotrol PO 5 mg BID-AC VANDANA Administration Guaifenesin/Codeine Phosphate 10 ml 09/12/19 21:05 09/17/19 10:04 Robitussin Ac PO 10 ml Q6H PRN Administration Cough Cefazolin Sodium/Dextrose 2 gm 50 mls @ 100 mls/hr 09/10/19 14:00 09/17/19 14 :57 / Device IVPB 50 mls Q8HR VANDANA Administration Insulin Human Regular 0 units 09/07/19 22:16 09/17/19 14:51 Humulin R SC 6 unit .MODERATE SLIDING SC PRN Administration Moderate Correctional Scale Methylprednisolone Sodium Succinate 80 mg 09/16/19 09:00 09/17/19 08:03 Solu-Medrol IVP 80 mg DAILY VANDANA Administration Morphine Sulfate 2 mg 09/07/19 22:15 09/15/19 03:15 Morphine SLOW IVP 2 mg Q4H PRN Administration severe pain 4-10 Ondansetron HCl 4 mg 09/07/19 22:15 09/12/19 19:57 Zofran IVP 4 mg Q6H PRN Administration Nausea/Vomiting use 1st Polyethylene Glycol 17 gm 09/08/19 09:00 09/17/19 08:02 Miralax PO Not Given DAILY VANDANA Sodium Chloride 10 ml 09/08/19 09:00 09/17/19 08:05 Flush - Normal Saline IVF 10 ml Q12HR VANDANA Administration - Exam General Appearance: NAD General - other findings: Further exam deferred to minimize exposures Hosp A/P (1) COVID-19 Code(s): U07.1 - COVID-19 Status: Acute (2) Acute respiratory failure with hypoxia Code(s): J96.01 - ACUTE RESPIRATORY FAILURE WITH HYPOXIA Status: Acute (3) Obstructive sleep apnea Code(s): G47.33 - OBSTRUCTIVE SLEEP APNEA (ADULT) (PEDIATRIC) Status: Acute (4) Cholelithiasis Code(s): K80.20 - CALCULUS OF GALLBLADDER W/O CHOLECYSTITIS W/O OBSTRUCTION Status: Acute Qualifiers: Cholelithiasis location: gallbladder Cholecystitis presence: without cholecystitis (5) Morbid obesity Code(s): E66.01 - MORBID (SEVERE) OBESITY DUE TO EXCESS CALORIES Status: Chronic (6) Diabetes mellitus Code(s): E11.9 - TYPE 2 DIABETES MELLITUS WITHOUT COMPLICATIONS Status: Acute (7) Hyperlipidemia Code(s): E78.5 - HYPERLIPIDEMIA, UNSPECIFIED Status: Acute (8) Hypertension Code(s): I10 - ESSENTIAL (PRIMARY) HYPERTENSION Status: Acute - Plan Patient initially presented with what appeared to be more pleuritic type chest pain with evidence of cholelithiasis. He subsequently developed a cough and was tested for COVID again which was positive. Subsequently the patient has had a fairly typical severe COVID infection type case. Pulmonology is following. He does appear to be slowly improving. He is fully anticoagulated with Lovenox. Per pulmonology will be tapering steroids over the coming days. His C-reactive protein is substantially improved. Blood sugars running slightly high. Continuing with sliding scale insulin. Continue home dose of Glucotrol. Continue Coreg and clonidine for blood pressure.
[2019-09-18] MEDS: Albuterol 200 PUFF (6.7GM INHALER) INH SCH ×6 (02:44→23:50)
[2019-09-18] MEDS: guaiFENesin/Codeine Phosphate 200 mg/20 mg 10 ml UD Cup PO PRN ×3 (02:44→17:21)
[2019-09-18] MEDS: Benzonatate 100 MG CAP PO PRN ×3 (02:44→15:03)
[2019-09-18 04:34] LABS: Anion Gap 13 mmol/L (10-20); BUN (Urea Nitrogen) 10 mg/dL (8.9-20.6); Calc. Creatinine Clearance 329 mL/min (70-130); Calcium 8.4 mg/dL (7.8-10.44); Carbon Dioxide 31 mmol/L (22-29); Chloride 98 mmol/L (98-107); Estimated GFR-MDRD Greater than 90; Glucose 160 mg/dL (70-105); Potassium 3.5 mmol/L (3.5-5.1); Sodium 138 mmol/L (136-145)
[2019-09-18] MEDS: CEFAZOLIN 2 GM in Premix Bag 1 BAG IVPB SCH ×3 (05:49→21:50)
[2019-09-18 06:08] LABS: Hemoglobin 13.9 g/dL (14.0-18.0); Mean Corpuscular HGB CONC 33.3 g/dL (32.0-36.0); Mean Corpuscular Hemoglobin 30.4 pg (27.0-31.0); Mean Corpuscular Volume 91.4 fL (78.0-98.0); Mean Platelet Volume 7.1 fL (7.4-10.4); Platelet Count 434 thou/uL (130-400); RBC Distribution Width 11.3 % (11.5-14.5); Red Blood Cell (RBC) Count 4.58 mill/uL (4.70-6.10); White Blood Cell (WBC) Count 12.8 thou/uL (4.8-10.8)
[2019-09-18 07:00] LABS: Band 4 % (5-11); Lymphocytes 12 % (21-51); MDiff Complete? YES; Neutrophil 84 % (42-75)
[2019-09-18] MEDS: Enoxaparin Sodium 80 MG/0.8 ML SYRINGE SC SCH ×2 (08:31→21:27)
[2019-09-18] MEDS: Atorvastatin Calcium 10 MG TAB PO SCH (08:32)
[2019-09-18] MEDS: Famotidine 20 MG TAB PO SCH ×2 (08:32→21:27)
[2019-09-18] MEDS: glipiZIDE 5 MG TAB PO SCH ×2 (08:32→15:03)
[2019-09-18] MEDS: Carvedilol 6.25 MG TAB PO SCH ×2 (08:32→21:26)
[2019-09-18] MEDS: Amlodipine 10 MG TAB PO SCH (08:33)
[2019-09-18] MEDS: Polyethylene Glycol 3350 17 GM Packet PO SCH (09:21)
--- NOTE | 2019-09-18 10:27 | RAD ---
CHEST 1 VIEW: HISTORY: Respiratory insufficiency. FINDINGS/IMPRESSION: Stable extensive bilateral alveolar and ground-glass opacity changes throughout both lungs. No signi ficant new process. POS: [facility]
--- NOTE | 2019-09-18 12:01 | PRG ---
DATE OF SERVICE: 09/18/2019 SUBJECTIVE: The patient remains hypoxic on high-flow oxygen. He is coughing profusely. He has had no fever. He is wondering when he will be able to go home as he is frustrated by his long hospitalization. OBJECTIVE: VITAL SIGNS: His temperature 98.3, pulse 77, blood pressure 145/82. HEENT: Unremarkable. NECK: No adenopathy or JVD. LUNGS: Have soft crackles posteriorly. CARDIAC: S1 and S2. Regular. ABDOMEN: Soft. EXTREMITIES: No edema. LABORATORY DATA: His x-ray shows diffuse bilateral infiltrative changes. White blood cell count 12.8, hematocrit 41.9, and platelet count 434. Sodium 130, potassium 3.5, BUN 10, creatinine 0.6, and glucose 160. ASSESSMENT: COVID-19 infection with pneumonia and hypoxemia. PLAN: The patient has received IL-6 inhibitor and convalescent plasma, seems to be doing reasonably well in all things considered, just needs time for resolution of symptoms. No new recommendations at this time. Job ID: [id number]
--- NOTE | 2019-09-18 16:49 | PDOC.HOSPP ---
- Subjective Encounter Date: 09/18/19 Subjective: Continues to have some cough. Continues to have some shortness of breath. Has hoarseness of voice today. - Objective Vital Signs & Weight: Vital Signs (12 hours) Temp BP Pulse Ox 09/18/19 11:00 98.5 F 09/18/19 08:33 153/87 H 09/18/19 08:00 98.3 F 96 Weight Admit Weight 352 lb Weight 352 lb Most Recent Monitor Data Heart Rate from ECG 67 NIBP 143/78 NIBP BP-Mean 99 Respiration from ECG 22 SpO2 97 I&O: 09/17/19 09/18/19 09/19/19 06:59 06:59 06:59 Intake Total 1092 1016 1000 Output Total 2667 0215 1173 [facility] -1433 -2484 -75 Result Diagrams: 09/18/19 04:00 09/18/19 04:00 Additional Labs: Accuchecks 09/18/19 09/17/19 09/17/19 04:07 21:57 11:26 POC Glucose 167 H 259 H 247 H Hospitalist ROS - Medication Medications: Active Medications Generic Name Dose Route Start Last Admin Trade Name Freq PRN Reason Stop Dose Admin Acetaminophen 650 mg 09/07/19 22:24 09/14/19 20:06 Tylenol PO 650 mg Q4H PRN Administration Headache/Fever/Mild Pain (1-3) Albuterol Sulfate 2 puff 09/15/19 06:30 09/18/19 11:05 Proventil Hfa INH 2 puff [id number] VANDANA Administration Amlodipine Besylate 10 mg 09/08/19 09:00 09/18/19 08:33 Norvasc PO 10 mg DAILY VANDANA Administration Atorvastatin Calcium 10 mg 09/08/19 09:00 09/18/19 08:32 Lipitor PO 10 mg DAILY VANDANA Administration Benzonatate 100 mg 09/13/19 00:18 09/18/19 15:03 Tessalon PO 100 mg TIDPRN PRN Administration Cough Carvedilol 6.25 mg 09/08/19 09:00 09/18/19 08:32 Coreg PO 6.25 mg BID VANDANA Administration Clonidine 0.1 mg 09/07/19 22:15 09/11/19 12:32 Catapres PO 0.1 mg BID PRN Administration SBP > 160 use second Enoxaparin Sodium 80 mg 09/14/19 09:00 09/18/19 08:31 Lovenox SC 80 mg 0900,2100 VANDANA Administration Famotidine 20 mg 09/08/19 09:00 09/18/19 08:32 Pepcid PO 20 mg BID VANDANA Administration Glipizide 5 mg 09/08/19 07:30 09/18/19 15:03 Glucotrol PO 5 mg BID-AC VANDANA Administration Guaifenesin/Codeine Phosphate 10 ml 09/12/19 21:05 09/18/19 10:31 Robitussin Ac PO 10 ml Q6H PRN Administration Cough Cefazolin Sodium/Dextrose 2 gm 50 mls @ 100 mls/hr 09/10/19 14:00 09/18/19 15 :02 / Device IVPB 50 mls Q8HR VANDANA Administration Insulin Human Regular 0 units 09/07/19 22:16 09/17/19 22:21 Humulin R SC 6 unit .MODERATE SLIDING SC PRN Administration Moderate Correctional Scale Methylprednisolone Sodium Succinate 80 mg 09/16/19 09:00 09/17/19 08:03 Solu-Medrol IVP 80 mg DAILY VANDANA Administration Ondansetron HCl 4 mg 09/07/19 22:15 09/12/19 19:57 Zofran IVP 4 mg Q6H PRN Administration Nausea/Vomiting use 1st Polyethylene Glycol 17 gm 09/08/19 09:00 09/18/19 09:21 Miralax PO Not Given DAILY VANDANA Sodium Chloride 10 ml 09/08/19 09:00 09/18/19 08:33 Flush - Normal Saline IVF 10 ml Q12HR VANDANA Administration - Exam General Appearance: NAD, awake alert General - other findings: Morbidly obese Heart: RRR, no murmur, no gallops, no rubs, normal peripheral pulses Respiratory: CTAB (Exam is very limited by the disposable stethoscope in the patient's body habitus.), no wheezes, no rales Gastrointestinal: soft, non-tender, non-distended, normal bowel sounds, no palpable masses, no hepatomegaly, no splenomegaly, no bruit Extremities: no cyanosis, no clubbing, no edema Skin: normal turgor Neurological: no focal deficits Musculoskeletal: normal tone Psychiatric: normal affect, normal behavior, A&O x 3 Hosp A/P (1) COVID-19 Code(s): U07.1 - COVID-19 Status: Acute (2) Acute respiratory failure with hypoxia Code(s): J96.01 - ACUTE RESPIRATORY FAILURE WITH HYPOXIA Status: Acute (3) Obstructive sleep apnea Code(s): G47.33 - OBSTRUCTIVE SLEEP APNEA (ADULT) (PEDIATRIC) Status: Acute (4) Cholelithiasis Code(s): K80.20 - CALCULUS OF GALLBLADDER W/O CHOLECYSTITIS W/O OBSTRUCTION Status: Acute Qualifiers: Cholelithiasis location: gallbladder Cholecystitis presence: without cholecystitis (5) Morbid obesity Code(s): E66.01 - MORBID (SEVERE) OBESITY DUE TO EXCESS CALORIES Status: Chronic (6) Diabetes mellitus Code(s): E11.9 - TYPE 2 DIABETES MELLITUS WITHOUT COMPLICATIONS Status: Acute (7) Hyperlipidemia Code(s): E78.5 - HYPERLIPIDEMIA, UNSPECIFIED Status: Acute (8) Hypertension Code(s): I10 - ESSENTIAL (PRIMARY) HYPERTENSION Status: Acute - Plan COVID-19: Patient initially presented with what appeared to be more pleuritic type chest pain with evidence of cholelithiasis. He subsequently developed a cough and was tested for COVID again which was positive. Subsequently the patient has had a fairly typical severe COVID infection type case. Pulmonology is following. He has received the IL-6 inhibitor and convalescent plasma. He does appear to be slowly improving. He is fully anticoagulated with Lovenox. Per pulmonology will be tapering steroids over the coming days. His C-reactive protein is substantially improved. His chest x-ray today continues to show significant bilateral infiltrate. Diabetes mellitus type 2: Blood sugars running slightly high. Continuing with sliding scale insulin. Continue home dose of Glucotrol. Hypertension: Continue Coreg and clonidine for blood pressure. Disposition: While in the room the patient requested that he call his so that I can talk to her because she had some questions. Did speak with the patient's . Explained the patient's current situation. There are certainly signs that he is improving including the improvement with the CRP. His chest x-ray does continue to show significant bilateral infiltrates. He has been treated with the IL-6 inhibitor and the convalescent plasma. We cannot obtain remdesivir. Not sure there is an indication for him to take that at this point. Do not believe there is a lot more that we can be doing medicinally from the therapeutic perspective. At this point we are continuing to anticoagulate him and supply supportive oxygen. She inquired about the timeline for him to be discharged. Of course, I was not able to give her any specifics. While he does appear to be getting gradually better, he continues to have significant infiltrate and have significant oxygen demands. She expressed frustration with her because he is not asking questions that she would like to have answered. She is frustrated because she cannot be here to ask questions on his behalf. She expressed frustration that she had only been called a couple of times during his hospitalization to give her updates. I explained to her that the patient is a competent and coherent adult. He has the ability to appropriately communicate with her what ever he does and does not desire for her to know. We have no right to speak to her regarding his medical situation without his expressed consent and request. With his consent and request we are more than happy to call her. I explained that we would prefer to call her after our visit with the patient outside of the room so that we can minimize her own potential exposures. I spoke to her for approximately 15 minutes. Ultimately, I believe she hung up on me. Subsequently, the patient expressed his frustrations with dealing with her as well. It seems as though the 2 of them are not communicating well and are frustrated mutually. He explained that he fully understands the hip the situation and how the communication needs to occur at his request.
[2019-09-18] MEDS: Insulin Regular 300 UNITS/3 ML VIAL SC PRN ×2 (17:19→22:40)
[2019-09-19] MEDS: Albuterol 200 PUFF (6.7GM INHALER) INH SCH ×4 (02:51→22:30)
[2019-09-19] MEDS: guaiFENesin/Codeine Phosphate 200 mg/20 mg 10 ml UD Cup PO PRN ×2 (03:10→12:21)
[2019-09-19 06:16] LABS: Hemoglobin 15.2 g/dL (14.0-18.0); Mean Corpuscular HGB CONC 34.1 g/dL (32.0-36.0); Mean Corpuscular Hemoglobin 30.8 pg (27.0-31.0); Mean Corpuscular Volume 90.4 fL (78.0-98.0); Mean Platelet Volume 6.7 fL (7.4-10.4); Platelet Count 482 thou/uL (130-400); RBC Distribution Width 11.5 % (11.5-14.5); Red Blood Cell (RBC) Count 4.94 mill/uL (4.70-6.10); White Blood Cell (WBC) Count 14.3 thou/uL (4.8-10.8)
[2019-09-19 06:31] LABS: Anion Gap 13 mmol/L (10-20); BUN (Urea Nitrogen) 11 mg/dL (8.9-20.6); Calc. Creatinine Clearance 302 mL/min (70-130); Calcium 8.7 mg/dL (7.8-10.44); Carbon Dioxide 30 mmol/L (22-29); Chloride 98 mmol/L (98-107); Estimated GFR-MDRD Greater than 90; Glucose 134 mg/dL (70-105); Potassium 3.8 mmol/L (3.5-5.1); Sodium 137 mmol/L (136-145)
[2019-09-19] MEDS: CEFAZOLIN 2 GM in Premix Bag 1 BAG IVPB SCH ×3 (06:33→21:03)
[2019-09-19 06:43] LABS: Band 6 % (5-11); Lymphocytes 7 % (21-51); MDiff Complete? YES; Monocytes 5 % (0-10); Neutrophil 82 % (42-75)
--- NOTE | 2019-09-19 09:20 | RAD ---
SINGLE VIEW OF THE CHEST: COMPARISON: 09/18/2019. HISTORY: Ventilated patient with respiratory failure. FINDINGS: A single view of the chest shows an enlarged but stable cardiomediastinal silhouette. There are stab le diffuse mixed infiltrates. IMPRESSION: Stable multifocal infiltrates. POS: [facility]
[2019-09-19] MEDS: Amlodipine 10 MG TAB PO SCH (09:35)
[2019-09-19] MEDS: Atorvastatin Calcium 10 MG TAB PO SCH (09:35)
[2019-09-19] MEDS: Carvedilol 6.25 MG TAB PO SCH ×2 (09:36→21:02)
[2019-09-19] MEDS: glipiZIDE 5 MG TAB PO SCH ×2 (09:36→17:07)
[2019-09-19] MEDS: Enoxaparin Sodium 80 MG/0.8 ML SYRINGE SC SCH ×2 (09:37→21:02)
[2019-09-19] MEDS: methylPREDNISolone Sod Succ 40 MG VIAL IVP SCH (09:37)
[2019-09-19] MEDS: Polyethylene Glycol 3350 17 GM Packet PO SCH (09:38)
[2019-09-19] MEDS: Famotidine 20 MG TAB PO SCH ×2 (09:40→21:03)
[2019-09-19] MEDS: Insulin Regular 300 UNITS/3 ML VIAL SC PRN ×2 (17:20→22:04)
--- NOTE | 2019-09-19 18:04 | PRG ---
DATE OF SERVICE: 09/19/2019 SUBJECTIVE: Billy Bonilla is clinically unchanged. OBJECTIVE: VITAL SIGNS: He is afebrile. Blood pressure 151/84, heart rates in the 60s. He is still on high-flow oxygen. His sats were 92 earlier, then 97 this afternoon. PLAN: We will continue current supportive care. There is no clinical indication for intubation at this point in time. He will need a CPAP/sleep apnea workup at some point in time. Need to continue to try to minimize his FiO2. Job ID: [id number]
--- NOTE | 2019-09-19 18:19 | PDOC.HOSPP ---
- Subjective Encounter Date: 09/19/19 Subjective: Doing ok. Still has some hoarseness of voice and cough. [place] was very helpful for him, but it has fallen off. Helped reduce the cough and helped him sleep. - Objective Vital Signs & Weight: Vital Signs (12 hours) Temp Pulse BP Pulse Ox 09/19/19 17:00 99.3 F 09/19/19 16:00 98.4 F 09/19/19 13:44 98 09/19/19 12:00 98.5 F 09/19/19 09:36 154/84 H 09/19/19 09:35 58 L 154/84 H 09/19/19 08:00 98.7 F 90 L Weight Admit Weight 352 lb Weight 352 lb Most Recent Monitor Data Heart Rate from ECG 75 NIBP 162/95 NIBP BP-Mean 117 Respiration from ECG 19 SpO2 95 I&O: 09/18/19 09/19/19 09/20/19 06:59 06:59 06:59 Intake Total 1016 1814 1750 Output Total 3500 2850 2170 Balance -2484 -1036 -420 Result Diagrams: 09/19/19 06:01 09/19/19 06:01 Additional Labs: Accuchecks 09/18/19 09/18/19 09/18/19 22:26 15:23 10:41 POC Glucose 265 H 305 H 183 H Hospitalist ROS - Medication Medications: Active Medications Generic Name Dose Route Start Last Admin Trade Name Freq PRN Reason Stop Dose Admin Acetaminophen 650 mg 09/07/19 22:24 09/14/19 20:06 Tylenol PO 650 mg Q4H PRN Administration Headache/Fever/Mild Pain (1-3) Albuterol Sulfate 2 puff 09/15/19 06:30 09/19/19 02:51 Proventil Hfa INH 2 puff [id number] VANDANA Administration Amlodipine Besylate 10 mg 09/08/19 09:00 09/19/19 09:35 Norvasc PO 10 mg DAILY VANDANA Administration Atorvastatin Calcium 10 mg 09/08/19 09:00 09/19/19 09:35 Lipitor PO 10 mg DAILY VANDANA Administration Benzonatate 100 mg 09/13/19 00:18 09/18/19 15:03 Tessalon PO 100 mg TIDPRN PRN Administration Cough Carvedilol 6.25 mg 09/08/19 09:00 09/19/19 09:36 Coreg PO 6.25 mg BID VANDANA Administration Clonidine 0.1 mg 09/07/19 22:15 09/11/19 12:32 Catapres PO 0.1 mg BID PRN Administration SBP > 160 use second Enoxaparin Sodium 80 mg 09/14/19 09:00 09/19/19 09:37 Lovenox SC 80 mg 0900,2100 VANDANA Administration Famotidine 20 mg 09/08/19 09:00 09/19/19 09:40 Pepcid PO 20 mg BID VANDANA Administration Glipizide 5 mg 09/08/19 07:30 09/19/19 17:07 Glucotrol PO 5 mg BID-AC VANDANA Administration Guaifenesin/Codeine Phosphate 10 ml 09/12/19 21:05 09/19/19 12:21 Robitussin Ac PO 10 ml Q6H PRN Administration Cough Cefazolin Sodium/Dextrose 2 gm 50 mls @ 100 mls/hr 09/10/19 14:00 09/19/19 12 :21 / Device IVPB 50 mls Q8HR VANDANA Administration Insulin Human Regular 0 units 09/07/19 22:16 09/19/19 17:20 Humulin R SC 8 unit .MODERATE SLIDING SC PRN Administration Moderate Correctional Scale Methylprednisolone Sodium Succinate 80 mg 09/16/19 09:00 09/19/19 09:37 Solu-Medrol IVP 80 mg DAILY VANDANA Administration Ondansetron HCl 4 mg 09/07/19 22:15 09/12/19 19:57 Zofran IVP 4 mg Q6H PRN Administration Nausea/Vomiting use 1st Polyethylene Glycol 17 gm 09/08/19 09:00 09/19/19 09:38 Miralax PO Not Given DAILY VANDANA Sodium Chloride 10 ml 09/08/19 09:00 09/19/19 09:38 Flush - Normal Saline IVF 10 ml Q12HR VANDANA Administration - Exam General Appearance: NAD, awake alert Heart: RRR, no murmur, no gallops, no rubs, normal peripheral pulses Respiratory: no wheezes, no ronchi, normal chest expansion, no tachypnea, normal percussion, rales (Very fine, scattered.) Gastrointestinal: soft, non-tender, non-distended, normal bowel sounds, no palpable masses, no hepatomegaly, no splenomegaly, no bruit Extremities: no cyanosis, no clubbing, no edema Skin: normal turgor Musculoskeletal: normal tone Psychiatric: normal affect, normal behavior, A&O x 3 Hosp A/P (1) COVID-19 Code(s): U07.1 - COVID-19 Status: Acute (2) Acute respiratory failure with hypoxia Code(s): J96.01 - ACUTE RESPIRATORY FAILURE WITH HYPOXIA Status: Acute (3) Obstructive sleep apnea Code(s): G47.33 - OBSTRUCTIVE SLEEP APNEA (ADULT) (PEDIATRIC) Status: Acute (4) Cholelithiasis Code(s): K80.20 - CALCULUS OF GALLBLADDER W/O CHOLECYSTITIS W/O OBSTRUCTION Status: Acute Qualifiers: Cholelithiasis location: gallbladder Cholecystitis presence: without cholecystitis (5) Morbid obesity Code(s): E66.01 - MORBID (SEVERE) OBESITY DUE TO EXCESS CALORIES Status: Chronic (6) Diabetes mellitus Code(s): E11.9 - TYPE 2 DIABETES MELLITUS WITHOUT COMPLICATIONS Status: Acute (7) Hyperlipidemia Code(s): E78.5 - HYPERLIPIDEMIA, UNSPECIFIED Status: Acute (8) Hypertension Code(s): I10 - ESSENTIAL (PRIMARY) HYPERTENSION Status: Acute - Plan COVID-19: Pulmonology is following. He has received the IL-6 inhibitor and convalescent plasma. He does appear to be slowly improving. He is fully anticoagulated with Lovenox. Per pulmonology will be tapering steroids over the coming days. His C-reactive protein is substantially improved. His chest x-ray today continues to show significant bilateral infiltrate. Will give some [place] and cough suppression. Diabetes mellitus type 2: Blood sugars running slightly high. Continuing with sliding scale insulin. Continue home dose of Glucotrol. Hypertension: Continue Coreg and clonidine for blood pressure. Disposition: Still has significant oxygen demand. May be worth retesting to see if we can remove the isolation and allow visitation. Will discuss with ID.
[2019-09-19] MEDS: guaiFENesin ER 600 MG TAB PO SCH (21:02)
[2019-09-19] MEDS: HYDROcodone/Acetaminophen 5/325 mg Tablet PO PRN (22:02)
[2019-09-20] MEDS: HYDROcodone/Acetaminophen 5/325 mg Tablet PO PRN ×3 (02:44→15:56)
[2019-09-20] MEDS: Benzonatate 100 MG CAP PO PRN ×2 (02:45→13:42)
[2019-09-20] MEDS: Albuterol 200 PUFF (6.7GM INHALER) INH SCH ×8 (03:01→19:30)
[2019-09-20 04:20] LABS: Anion Gap 12 mmol/L (10-20); BUN (Urea Nitrogen) 9 mg/dL (8.9-20.6); Calc. Creatinine Clearance 356 mL/min (70-130); Calcium 8.4 mg/dL (7.8-10.44); Carbon Dioxide 28 mmol/L (22-29); Chloride 99 mmol/L (98-107); Estimated GFR-MDRD Greater than 90; Glucose 130 mg/dL (70-105); Potassium 3.8 mmol/L (3.5-5.1); Sodium 135 mmol/L (136-145)
[2019-09-20 05:46] LABS: Band 15 % (5-11); Hemoglobin 14.2 g/dL (14.0-18.0); Lymphocytes 10 % (21-51); MDiff Complete? YES; Mean Corpuscular HGB CONC 34.1 g/dL (32.0-36.0); Mean Corpuscular Volume 90.9 fL (78.0-98.0); Mean Platelet Volume 7.4 fL (7.4-10.4); Monocytes 2 % (0-10); Neutrophil 73 % (42-75); Platelet Count 407 thou/uL (130-400); RBC Distribution Width 11.4 % (11.5-14.5); Red Blood Cell (RBC) Count 4.59 mill/uL (4.70-6.10); White Blood Cell (WBC) Count 10.2 thou/uL (4.8-10.8)
[2019-09-20] MEDS: CEFAZOLIN 2 GM in Premix Bag 1 BAG IVPB SCH ×3 (05:48→21:54)
[2019-09-20] MEDS: glipiZIDE 5 MG TAB PO SCH ×2 (07:49→15:56)
--- NOTE | 2019-09-20 07:53 | RAD ---
Chest one view HISTORY: Dyspnea. Intubated. Follow-up. COMPARISON: 09/19/2019. FINDINGS: Cardiac silhouette is magnified and now more obscured by worsening widespread mixed interst itial and alveolar parenchymal opacity throughout each lung that is fairly diffuse. Mediastinum remains midline. No evidence of pneumothorax. Right lateral costophrenic angle is excluded from the image. IMPRESSION : Worsening diffuse bilateral airspace disease.
--- NOTE | 2019-09-20 08:38 | PRG ---
DATE OF SERVICE: SUBJECTIVE: Mr. Bonilla is clinically looking better. Says he feels better than he felt 2 days ago. OBJECTIVE: VITAL SIGNS: He is afebrile, heart rate is in the 60s, blood pressure is 158/89, oximetry is 90%, and FiO2 is down to 63 this morning. Remainder of his exam is unchanged. IMPRESSION: COVID-19 pneumonia. He clinically appears to be slowly improving. We will continue supportive care in the ICU. Job ID: [id number]
[2019-09-20] MEDS: Famotidine 20 MG TAB PO SCH ×2 (09:20→19:21)
[2019-09-20] MEDS: Amlodipine 10 MG TAB PO SCH (09:21)
[2019-09-20] MEDS: guaiFENesin ER 600 MG TAB PO SCH ×2 (09:21→19:21)
[2019-09-20] MEDS: Atorvastatin Calcium 10 MG TAB PO SCH (09:22)
[2019-09-20] MEDS: Carvedilol 6.25 MG TAB PO SCH ×2 (09:22→19:21)
[2019-09-20] MEDS: methylPREDNISolone Sod Succ 40 MG VIAL IVP SCH (09:22)
[2019-09-20] MEDS: Enoxaparin Sodium 80 MG/0.8 ML SYRINGE SC SCH ×2 (09:23→19:21)
[2019-09-20] MEDS: Polyethylene Glycol 3350 17 GM Packet PO SCH (10:12)
[2019-09-20] MEDS: Insulin Regular 300 UNITS/3 ML VIAL SC PRN ×3 (11:23→22:33)
--- NOTE | 2019-09-20 16:46 | PRG ---
DATE OF SERVICE: 09/20/2019 SUBJECTIVE: MR. Bonilla is still in the ICU. He is awake, appears comfortable at rest, not coughing much. No headaches. No dyspnea. No abdominal pain. He is voiding with an indwelling Castanon catheter. OBJECTIVE: VITAL SIGNS: His temperature has been normal. BP 130/85, heart rate 79, O2 saturation 91% to 96% with a high-flow nasal cannula, the flow rate is at 60 L/minute. LUNGS: Symmetric, clear breath sounds. CARDIAC: S1 and S2. Regular rate. Appears in no distress. ABDOMEN: Soft. LABORATORY DATA: White cell count is down to 10.2, hemoglobin 14.2, platelets down to 407. Sodium 135, creatinine 0.61. CRP is down to 1.14, and the ferritin is 2700 and has not been repeated since the . The D-dimer is still at 3.29, but it looks like a downward trend. Repeat chest x-ray from today with diffuse bilateral airspace disease. ASSESSMENT AND DISCUSSION: Methicillin-sensitive Staphylococcus aureus bacteremia with likely spinal infection and associated severe COVID infection. He is still slowly improving, but I guess the radiological changes are lagging behind. No further interventions other than just maintenance and supportive care at this moment. Regarding his family visitation, we can submit a repeat PCR down the road, but is likely to be positive due to the severity of his illness for quite a while. Job ID: [id number]
--- NOTE | 2019-09-20 16:56 | PDOC.HOSPP ---
- Subjective Encounter Date: 09/20/19 Subjective: Doing ok. Feels a little better. Cough is slightly improved. - Objective Vital Signs & Weight: Vital Signs (12 hours) Temp Pulse BP Pulse Ox 09/20/19 16:00 98.7 F 09/20/19 13:00 98.7 F 09/20/19 12:00 98.7 F 09/20/19 09:22 137/71 09/20/19 09:21 63 137/71 09/20/19 08:00 93 L 09/20/19 07:00 97.5 F L Weight Admit Weight 352 lb Weight 352 lb Most Recent Monitor Data Heart Rate from ECG 79 NIBP 138/85 NIBP BP-Mean 102 Respiration from ECG 15 SpO2 91 I&O: 09/19/19 09/20/19 09/21/19 06:59 06:59 06:59 Intake Total 1814 2296 510 Output Total 2850 3241 2053 Balance -1036 -949 -1540 Result Diagrams: 09/20/19 03:39 09/20/19 03:39 Additional Labs: Accuchecks 09/19/19 09/19/19 09/19/19 21:45 17:16 10:05 POC Glucose 244 H 302 H 144 H Hospitalist ROS - Medication Medications: Active Medications Generic Name Dose Route Start Last Admin Trade Name Freq PRN Reason Stop Dose Admin Acetaminophen 650 mg 09/07/19 22:24 09/14/19 20:06 Tylenol PO 650 mg Q4H PRN Administration Headache/Fever/Mild Pain (1-3) Hydrocodone Bitart/Acetaminophen 1 tab 09/19/19 18:31 09/20/19 15:56 [place] 5/325 PO 1 tab Q4H PRN Administration BREAKTHROUGH Cough Albuterol Sulfate 2 puff 09/15/19 06:30 09/20/19 15:51 Proventil Hfa INH Not Given [id number] VANDANA Amlodipine Besylate 10 mg 09/08/19 09:00 09/20/19 09:21 Norvasc PO 10 mg DAILY VANDANA Administration Atorvastatin Calcium 10 mg 09/08/19 09:00 09/20/19 09:22 Lipitor PO 10 mg DAILY VANDANA Administration Benzonatate 100 mg 09/13/19 00:18 09/20/19 13:42 Tessalon PO 100 mg TIDPRN PRN Administration Cough Carvedilol 6.25 mg 09/08/19 09:00 09/20/19 09:22 Coreg PO 6.25 mg BID VANDANA Administration Clonidine 0.1 mg 09/07/19 22:15 09/11/19 12:32 Catapres PO 0.1 mg BID PRN Administration SBP > 160 use second Enoxaparin Sodium 80 mg 09/14/19 09:00 09/20/19 09:23 Lovenox SC 80 mg 0900,2100 VANDANA Administration Famotidine 20 mg 09/08/19 09:00 09/20/19 09:20 Pepcid PO 20 mg BID VANDANA Administration Glipizide 5 mg 09/08/19 07:30 09/20/19 15:56 Glucotrol PO 5 mg BID-AC VANDANA Administration Guaifenesin 1,200 mg 09/19/19 21:00 09/20/19 09:21 Mucinex PO 1,200 mg Q12HR VANDANA Administration Cefazolin Sodium/Dextrose 2 gm 50 mls @ 100 mls/hr 09/10/19 14:00 09/20/19 13 :42 / Device IVPB 50 mls Q8HR VANDANA Administration Insulin Human Regular 0 units 09/07/19 22:16 09/20/19 15:57 Humulin R SC 8 unit .MODERATE SLIDING SC PRN Administration Moderate Correctional Scale Methylprednisolone Sodium Succinate 80 mg 09/16/19 09:00 09/20/19 09:22 Solu-Medrol IVP 80 mg DAILY VANDANA Administration Ondansetron HCl 4 mg 09/07/19 22:15 09/12/19 19:57 Zofran IVP 4 mg Q6H PRN Administration Nausea/Vomiting use 1st Polyethylene Glycol 17 gm 09/08/19 09:00 09/20/19 10:12 Miralax PO Not Given DAILY VANDANA Sodium Chloride 10 ml 09/08/19 09:00 09/20/19 09:25 Flush - Normal Saline IVF 10 ml Q12HR VANDANA Administration - Exam General Appearance: NAD, awake alert General - other findings: Morbidly obese. Heart: RRR, no murmur, no gallops, no rubs, normal peripheral pulses Respiratory: rales, wheezes (Diffuse, bilateral.) Gastrointestinal: soft, non-tender, non-distended, normal bowel sounds, no palpable masses, no hepatomegaly, no splenomegaly, no bruit Extremities: no cyanosis, no clubbing, no edema Hosp A/P (1) COVID-19 Code(s): U07.1 - COVID-19 Status: Acute (2) Acute respiratory failure with hypoxia Code(s): J96.01 - ACUTE RESPIRATORY FAILURE WITH HYPOXIA Status: Acute (3) Obstructive sleep apnea Code(s): G47.33 - OBSTRUCTIVE SLEEP APNEA (ADULT) (PEDIATRIC) Status: Acute (4) Cholelithiasis Code(s): K80.20 - CALCULUS OF GALLBLADDER W/O CHOLECYSTITIS W/O OBSTRUCTION Status: Acute Qualifiers: Cholelithiasis location: gallbladder Cholecystitis presence: without cholecystitis (5) Morbid obesity Code(s): E66.01 - MORBID (SEVERE) OBESITY DUE TO EXCESS CALORIES Status: Chronic (6) Diabetes mellitus Code(s): E11.9 - TYPE 2 DIABETES MELLITUS WITHOUT COMPLICATIONS Status: Acute (7) Hyperlipidemia Code(s): E78.5 - HYPERLIPIDEMIA, UNSPECIFIED Status: Acute (8) Hypertension Code(s): I10 - ESSENTIAL (PRIMARY) HYPERTENSION Status: Acute - Plan COVID-19: Pulmonology is following. He has received the IL-6 inhibitor and convalescent plasma. He does appear to be slowly improving. He is fully anticoagulated with Lovenox. His C-reactive protein is substantially improved. His chest x- ray today continues to show significant bilateral infiltrate. Actually slightly worse in appear. Continue cough suppressant. Discussed with Dr. Ceballos. Will decrease the steroids. Diabetes mellitus type 2: Blood sugars running slightly high. Continuing with sliding scale insulin. Continue home dose of Glucotrol. Hopefully will improve with weaning the steroids. Hypertension: Continue Coreg and clonidine for blood pressure. Disposition: Still has significant oxygen demand. May be worth retesting to see if we can remove the isolation and allow visitation. Will discuss with ID.
[2019-09-20] MEDS: HYDROcodone/Chlorphen Polis 5 ML UDCUP PO PRN (18:33)
[2019-09-21] MEDS: Albuterol 200 PUFF (6.7GM INHALER) INH SCH ×7 (00:17→23:03)
[2019-09-21 04:35] LABS: Anion Gap 11 mmol/L (10-20); BUN (Urea Nitrogen) 11 mg/dL (8.9-20.6); Calc. Creatinine Clearance 351 mL/min (70-130); Calcium 8.3 mg/dL (7.8-10.44); Carbon Dioxide 28 mmol/L (22-29); Chloride 99 mmol/L (98-107); Estimated GFR-MDRD Greater than 90; Glucose 127 mg/dL (70-105); Sodium 134 mmol/L (136-145)
[2019-09-21 04:39] LABS: Band 2 % (5-11); Hemoglobin 14.8 g/dL (14.0-18.0); Lymphocytes 14 % (21-51); MDiff Complete? YES; Mean Corpuscular HGB CONC 33.6 g/dL (32.0-36.0); Mean Corpuscular Hemoglobin 30.8 pg (27.0-31.0); Mean Corpuscular Volume 91.5 fL (78.0-98.0); Mean Platelet Volume 7.3 fL (7.4-10.4); Monocytes 6 % (0-10); Neutrophil 78 % (42-75); Platelet Count 432 thou/uL (130-400); RBC Distribution Width 12.1 % (11.5-14.5)
[2019-09-21] MEDS: methylPREDNISolone Sod Succ 40 MG VIAL IVP SCH (08:03)
[2019-09-21] MEDS: Enoxaparin Sodium 80 MG/0.8 ML SYRINGE SC SCH ×2 (08:04→19:52)
[2019-09-21] MEDS: Famotidine 20 MG TAB PO SCH ×2 (08:04→19:52)
[2019-09-21] MEDS: Polyethylene Glycol 3350 17 GM Packet PO SCH (08:04)
[2019-09-21] MEDS: glipiZIDE 5 MG TAB PO SCH ×2 (08:05→15:34)
[2019-09-21] MEDS: guaiFENesin ER 600 MG TAB PO SCH ×2 (08:05→19:51)
[2019-09-21] MEDS: Atorvastatin Calcium 10 MG TAB PO SCH (08:05)
[2019-09-21] MEDS: Carvedilol 6.25 MG TAB PO SCH ×2 (08:05→19:51)
[2019-09-21] MEDS: Amlodipine 10 MG TAB PO SCH (08:06)
[2019-09-21] MEDS: HYDROcodone/Chlorphen Polis 5 ML UDCUP PO PRN ×2 (09:37→23:03)
[2019-09-21] MEDS: Ondansetron PF 4 MG/2 ML Vial IVP PRN (10:14)
[2019-09-21] MEDS: Insulin Regular 300 UNITS/3 ML VIAL SC PRN ×3 (11:24→19:54)
--- NOTE | 2019-09-21 16:09 | PRG ---
DATE OF SERVICE: 09/21/2019 SUBJECTIVE: Continues to slowly improve. He is in no distress. We are gradually weaning down his high-flow oxygen. A goal sat of 88 tonight is reasonable. OBJECTIVE: LUNGS: Unchanged. HEART: Unchanged. ABDOMEN: Unchanged. LABORATORY DATA: White count 10, hemoglobin 14.8, and platelets 432. Electrolytes are unremarkable. IMPRESSION: COVID-19 pneumonia, slowly improving. Negative fluid balance continues, which hopefully will lead to gradual resolution of some of this noncardiogenic edema associated with his pneumonia. Job ID: [id number]
--- NOTE | 2019-09-21 17:11 | PDOC.HOSPP ---
- Subjective Encounter Date: 09/21/19 Subjective: Patient reports she is feeling a little better today. His hoarseness has significantly resolved and he is able to speak much better now. He is eager to try to get on his feet a little bit. - Objective Vital Signs & Weight: Vital Signs (12 hours) Temp BP Pulse Ox 09/21/19 13:00 98.8 F 09/21/19 10:24 93 L 09/21/19 08:06 144/77 H 09/21/19 08:05 144/77 H 09/21/19 08:00 98.4 F 93 L 09/21/19 07:50 94 L Weight Admit Weight 352 lb Weight 352 lb Most Recent Monitor Data Heart Rate from ECG 70 NIBP 137/79 NIBP BP-Mean 98 Respiration from ECG 26 SpO2 80 I&O: 09/20/19 09/21/19 09/22/19 06:59 06:59 06:59 Intake Total 2296 1106 1080 Output Total 1732 4825 1285 [facility] -949 -2489 -205 Result Diagrams: 09/21/19 03:51 09/21/19 03:51 Additional Labs: Accuchecks 09/20/19 09/20/19 09/20/19 22:33 16:06 11:23 POC Glucose 214 H 336 H 173 H Hospitalist ROS - Medication Medications: Active Medications Generic Name Dose Route Start Last Admin Trade Name Freq PRN Reason Stop Dose Admin Acetaminophen 650 mg 09/07/19 22:24 09/14/19 20:06 Tylenol PO 650 mg Q4H PRN Administration Headache/Fever/Mild Pain (1-3) Hydrocodone Bitart/Acetaminophen 1 tab 09/19/19 18:31 09/20/19 15:56 [place] 5/325 PO 1 tab Q4H PRN Administration BREAKTHROUGH Cough Albuterol Sulfate 2 puff 09/15/19 06:30 09/21/19 14:10 Proventil Hfa INH 2 puff [id number] VANDANA Administration Amlodipine Besylate 10 mg 09/08/19 09:00 09/21/19 08:06 Norvasc PO 10 mg DAILY VANDANA Administration Atorvastatin Calcium 10 mg 09/08/19 09:00 09/21/19 08:05 Lipitor PO 10 mg DAILY VANDANA Administration Benzonatate 100 mg 09/13/19 00:18 09/20/19 13:42 Tessalon PO 100 mg TIDPRN PRN Administration Cough Carvedilol 6.25 mg 09/08/19 09:00 09/21/19 08:05 Coreg PO 6.25 mg BID VANDANA Administration Chlorphenir/Hydrocodone Polistirex 10 ml 09/19/19 18:29 09/21/19 09:37 Tussionex PO 10 ml Q12H PRN Administration Cough Clonidine 0.1 mg 09/07/19 22:15 09/11/19 12:32 Catapres PO 0.1 mg BID PRN Administration SBP > 160 use second Enoxaparin Sodium 80 mg 09/14/19 09:00 09/21/19 08:04 Lovenox SC 80 mg 0900,2100 VANDANA Administration Famotidine 20 mg 09/08/19 09:00 09/21/19 08:04 Pepcid PO 20 mg BID VANDANA Administration Glipizide 5 mg 09/08/19 07:30 09/21/19 15:34 Glucotrol PO 5 mg BID-AC VANDANA Administration Guaifenesin 1,200 mg 09/19/19 21:00 09/21/19 08:05 Mucinex PO 1,200 mg Q12HR VANDANA Administration Insulin Human Regular 0 units 09/07/19 22:16 09/21/19 16:27 Humulin R SC 6 unit .MODERATE SLIDING SC PRN Administration Moderate Correctional Scale Methylprednisolone Sodium Succinate 40 mg 09/21/19 09:00 09/21/19 08:03 Solu-Medrol IVP 40 mg DAILY VANDANA Administration Ondansetron HCl 4 mg 09/07/19 22:15 09/21/19 10:14 Zofran IVP 4 mg Q6H PRN Administration Nausea/Vomiting use 1st Polyethylene Glycol 17 gm 09/08/19 09:00 09/21/19 08:04 Miralax PO 17 gm DAILY VANDANA Administration Sodium Chloride 10 ml 09/08/19 09:00 09/21/19 08:37 Flush - Normal Saline IVF 10 ml Q12HR VANDANA Administration - Exam General Appearance: NAD, awake alert General - other findings: Morbidly obese Heart: RRR, no murmur, no gallops, no rubs, normal peripheral pulses Respiratory - other findings: Very fine scattered rales. Slightly improved. Gastrointestinal: soft, non-tender, non-distended, normal bowel sounds, no palpable masses, no hepatomegaly, no splenomegaly, no bruit Extremities: no cyanosis, no clubbing, no edema Skin: normal turgor Neurological: no focal deficits Musculoskeletal: normal tone Psychiatric: normal affect, normal behavior, A&O x 3 Hosp A/P (1) COVID-19 Code(s): U07.1 - COVID-19 Status: Acute (2) Acute respiratory failure with hypoxia Code(s): J96.01 - ACUTE RESPIRATORY FAILURE WITH HYPOXIA Status: Acute (3) Obstructive sleep apnea Code(s): G47.33 - OBSTRUCTIVE SLEEP APNEA (ADULT) (PEDIATRIC) Status: Acute (4) Cholelithiasis Code(s): K80.20 - CALCULUS OF GALLBLADDER W/O CHOLECYSTITIS W/O OBSTRUCTION Status: Acute Qualifiers: Cholelithiasis location: gallbladder Cholecystitis presence: without cholecystitis (5) Morbid obesity Code(s): E66.01 - MORBID (SEVERE) OBESITY DUE TO EXCESS CALORIES Status: Chronic (6) Diabetes mellitus Code(s): E11.9 - TYPE 2 DIABETES MELLITUS WITHOUT COMPLICATIONS Status: Acute (7) Hyperlipidemia Code(s): E78.5 - HYPERLIPIDEMIA, UNSPECIFIED Status: Acute (8) Hypertension Code(s): I10 - ESSENTIAL (PRIMARY) HYPERTENSION Status: Acute (9) MSSA bacteremia Code(s): R78.81 - BACTEREMIA; B95.61 - METHICILLIN SUSCEP STAPH INFCT CAUSING DIS CLASSD ELSWHR Status: Acute - Plan COVID-19: Pulmonology is following. He has received the IL-6 inhibitor and convalescent plasma. He does appear to be slowly improving. He is fully anticoagulated with Lovenox. His C-reactive protein is substantially improved. His chest x- ray today continues to show significant bilateral infiltrate. Continue with symptomatic treatment with cough suppressants. Weaning steroids. Acute hypoxic respiratory failure: Secondary to COVID infection. His high flow nasal cannula was weaned down from 60 L to 55 L today. Increasing his mobilization. Diabetes mellitus type 2: Blood sugars running slightly high. Continuing with sliding scale insulin. Continue home dose of Glucotrol. Hopefully will improve with weaning the steroids. Hypertension: Continue Coreg and clonidine for blood pressure. Disposition: Still has significant oxygen demand. Increase activity. DC Castanon catheter if he is able to get on his feet reasonably well today. MSSA bacteremia: Patient has received course of IV antibiotics per ID.
[2019-09-22] MEDS: Albuterol 200 PUFF (6.7GM INHALER) INH SCH ×6 (03:14→23:56)
[2019-09-22 04:16] LABS: Band 10 % (5-11); Eosinophils 2 % (0-10); Hemoglobin 14.7 g/dL (14.0-18.0); Lymphocytes 20 % (21-51); MDiff Complete? YES; Mean Corpuscular HGB CONC 33.1 g/dL (32.0-36.0); Mean Corpuscular Hemoglobin 30.6 pg (27.0-31.0); Mean Corpuscular Volume 92.3 fL (78.0-98.0); Mean Platelet Volume 7.2 fL (7.4-10.4); Monocytes 3 % (0-10); Neutrophil 65 % (42-75); Platelet Count 395 thou/uL (130-400); Platelet Morphology Comment Appears Adequate; RBC Distribution Width 12.2 % (11.5-14.5); Red Blood Cell (RBC) Count 4.82 mill/uL (4.70-6.10); White Blood Cell (WBC) Count 9.2 thou/uL (4.8-10.8)
[2019-09-22 04:30] LABS: Anion Gap 12 mmol/L (10-20); BUN (Urea Nitrogen) 12 mg/dL (8.9-20.6); Calc. Creatinine Clearance 334 mL/min (70-130); Calcium 8.8 mg/dL (7.8-10.44); Carbon Dioxide 28 mmol/L (22-29); Chloride 100 mmol/L (98-107); Estimated GFR-MDRD Greater than 90; Glucose 106 mg/dL (70-105); Potassium 5.2 mmol/L (3.5-5.1); Sodium 135 mmol/L (136-145)
[2019-09-22] MEDS: glipiZIDE 5 MG TAB PO SCH ×2 (08:30→16:59)
[2019-09-22] MEDS: Enoxaparin Sodium 80 MG/0.8 ML SYRINGE SC SCH (09:03)
[2019-09-22] MEDS: Bacteriostatic Water 30 ML VIAL FS PRN (09:04)
[2019-09-22] MEDS: methylPREDNISolone Sod Succ 40 MG VIAL IVP SCH (09:04)
[2019-09-22] MEDS: Famotidine 20 MG TAB PO SCH ×2 (09:05→20:07)
[2019-09-22] MEDS: guaiFENesin ER 600 MG TAB PO SCH ×2 (09:05→20:07)
[2019-09-22] MEDS: Carvedilol 6.25 MG TAB PO SCH ×2 (09:05→20:07)
[2019-09-22] MEDS: Benzonatate 100 MG CAP PO PRN ×2 (09:05→17:04)
[2019-09-22] MEDS: Amlodipine 10 MG TAB PO SCH (09:05)
[2019-09-22] MEDS: Polyethylene Glycol 3350 17 GM Packet PO SCH (09:06)
[2019-09-22] MEDS: Atorvastatin Calcium 10 MG TAB PO SCH (09:12)
--- NOTE | 2019-09-22 09:44 | PRG ---
DATE OF SERVICE: 09/22/2019 SUBJECTIVE: Billy Bonilla is doing well. He has no complaints. OBJECTIVE: VITAL SIGNS: He remains afebrile, heart rate is 80, blood pressure 144/77, respiratory rates in the teens to low 20s. GENERAL: When he sleeps, his saturations drop into the 80s with high-flow oxygen on. He is still sleeping in a chair. LABORATORY DATA: White count is 9.2, hemoglobin 14.7, platelets 395. Sodium 135, potassium 5.2, chloride 100, bicarb 28, BUN 12, and creatinine 0.65. Intake and output negative 540. IMPRESSION: COVID-19 pneumonia, clinically improving. PLAN: He has been stable for several days. We probably could move out to a noncritical care bed. We will take him off the Lovenox and place him on Eliquis for now. I would recommend continuing anticoagulation, although the data surrounding duration of need for anticoagulation is not clear. His steroid dosing is adjusted to couple of days back. His obesity is a major contributor to the lag in recovery from this pneumonia. He was encouraged to walk in place in the room. 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 I will check lab again on Wednesday. Job ID: [id number]
[2019-09-22] MEDS: Apixaban 5 MG TAB PO SCH ×2 (10:41→20:07)
[2019-09-22] MEDS: HYDROcodone/Acetaminophen 5/325 mg Tablet PO PRN ×2 (12:31→16:59)
[2019-09-22] MEDS: Insulin Regular 300 UNITS/3 ML VIAL SC PRN ×2 (18:18→20:10)
--- NOTE | 2019-09-22 19:04 | PDOC.HOSPP ---
- Subjective Encounter Date: 09/22/19 Subjective: Doing well. Still has mild cough. Voice is strong. Doing a little exercise. Walking in place. Sitting exercises. Castanon is out. - Objective Vital Signs & Weight: Vital Signs (12 hours) Temp Pulse BP Pulse Ox 09/22/19 16:00 99.1 F 09/22/19 12:00 99 F 09/22/19 09:05 80 144/77 H 09/22/19 09:00 99.3 F 09/22/19 07:54 88 L Weight Admit Weight 352 lb Weight 352 lb Most Recent Monitor Data Heart Rate from ECG 100 NIBP 158/90 NIBP BP-Mean 112 Respiration from ECG 24 SpO2 90 I&O: 09/21/19 09/22/19 09/23/19 06:59 06:59 06:59 Intake Total 1106 1960 1460 Output Total 3595 2500 1930 Balance -2489 -540 -470 Result Diagrams: 09/22/19 03:54 09/22/19 03:54 Additional Labs: Accuchecks 09/22/19 09:26 POC Glucose 139 H Hospitalist ROS - Medication Medications: Active Medications Generic Name Dose Route Start Last Admin Trade Name Freq PRN Reason Stop Dose Admin Acetaminophen 650 mg 09/07/19 22:24 09/14/19 20:06 Tylenol PO 650 mg Q4H PRN Administration Headache/Fever/Mild Pain (1-3) Hydrocodone Bitart/Acetaminophen 1 tab 09/19/19 18:31 09/22/19 16:59 [place] 5/325 PO 1 tab Q4H PRN Administration BREAKTHROUGH Cough Albuterol Sulfate 2 puff 09/15/19 06:30 09/22/19 18:45 Proventil Hfa INH 2 puff [id number] VANDANA Administration Amlodipine Besylate 10 mg 09/08/19 09:00 09/22/19 09:05 Norvasc PO 10 mg DAILY VANDANA Administration Apixaban 5 mg 09/22/19 09:00 09/22/19 10:41 Eliquis PO 5 mg BID VANDANA Administration Atorvastatin Calcium 10 mg 09/08/19 09:00 09/22/19 09:12 Lipitor PO 10 mg DAILY VANDANA Administration Benzonatate 100 mg 09/13/19 00:18 09/22/19 17:04 Tessalon PO 100 mg TIDPRN PRN Administration Cough Carvedilol 6.25 mg 09/08/19 09:00 09/22/19 09:05 Coreg PO 6.25 mg BID VANDANA Administration Chlorphenir/Hydrocodone Polistirex 10 ml 09/19/19 18:29 09/21/19 23:03 Tussionex PO 10 ml Q12H PRN Administration Cough Clonidine 0.1 mg 09/07/19 22:15 09/11/19 12:32 Catapres PO 0.1 mg BID PRN Administration SBP > 160 use second Famotidine 20 mg 09/08/19 09:00 09/22/19 09:05 Pepcid PO 20 mg BID VANDANA Administration Glipizide 5 mg 09/08/19 07:30 09/22/19 16:59 Glucotrol PO 5 mg BID-AC VANDANA Administration Guaifenesin 1,200 mg 09/19/19 21:00 09/22/19 09:05 Mucinex PO 1,200 mg Q12HR VANDANA Administration Insulin Human Regular 0 units 09/07/19 22:16 09/22/19 18:18 Humulin R SC 4 unit .MODERATE SLIDING SC PRN Administration Moderate Correctional Scale Methylprednisolone Sodium Succinate 40 mg 09/21/19 09:00 09/22/19 09:04 Solu-Medrol IVP 40 mg DAILY VANDANA Administration Ondansetron HCl 4 mg 09/07/19 22:15 09/21/19 10:14 Zofran IVP 4 mg Q6H PRN Administration Nausea/Vomiting use 1st Polyethylene Glycol 17 gm 09/08/19 09:00 09/22/19 09:06 Miralax PO Not Given DAILY VANDANA Sodium Chloride 10 ml 09/08/19 09:00 09/22/19 09:06 Flush - Normal Saline IVF 10 ml Q12HR VANDANA Administration Sterile Water 1 ml 09/15/19 12:46 09/22/19 09:04 Bacteriostatic Water FS 1 ml PRN PRN Administration RECONSTITUTION - Exam General Appearance: NAD, awake alert General - other findings: Morbidly obese. Heart: RRR, no murmur, no gallops, no rubs, normal peripheral pulses Respiratory: rales (Minimal) Gastrointestinal: soft, non-tender, non-distended, normal bowel sounds, no palpable masses, no hepatomegaly, no splenomegaly, no bruit Extremities: no cyanosis, no clubbing, no edema Skin: normal turgor Neurological: no focal deficits Musculoskeletal: normal tone Psychiatric: normal affect, normal behavior, A&O x 3 Hosp A/P (1) COVID-19 Code(s): U07.1 - COVID-19 Status: Acute (2) Acute respiratory failure with hypoxia Code(s): J96.01 - ACUTE RESPIRATORY FAILURE WITH HYPOXIA Status: Acute (3) Obstructive sleep apnea Code(s): G47.33 - OBSTRUCTIVE SLEEP APNEA (ADULT) (PEDIATRIC) Status: Acute (4) Cholelithiasis Code(s): K80.20 - CALCULUS OF GALLBLADDER W/O CHOLECYSTITIS W/O OBSTRUCTION Status: Acute Qualifiers: Cholelithiasis location: gallbladder Cholecystitis presence: without cholecystitis (5) Morbid obesity Code(s): E66.01 - MORBID (SEVERE) OBESITY DUE TO EXCESS CALORIES Status: Chronic (6) Diabetes mellitus Code(s): E11.9 - TYPE 2 DIABETES MELLITUS WITHOUT COMPLICATIONS Status: Acute (7) Hyperlipidemia Code(s): E78.5 - HYPERLIPIDEMIA, UNSPECIFIED Status: Acute (8) Hypertension Code(s): I10 - ESSENTIAL (PRIMARY) HYPERTENSION Status: Acute (9) MSSA bacteremia Code(s): R78.81 - BACTEREMIA; B95.61 - METHICILLIN SUSCEP STAPH INFCT CAUSING DIS CLASSD ELSWHR Status: Acute - Plan COVID-19: Pulmonology is following. He has received the IL-6 inhibitor and convalescent plasma. He does appear to be slowly improving. He is fully anticoagulated with Eliquis. His C-reactive protein is substantially improved. His chest x- ray continues to show significant bilateral infiltrate. Continue with symptomatic treatment with cough suppressants. Weaning steroids. Acute hypoxic respiratory failure: Secondary to COVID infection. His high flow nasal cannula at 60 lpm at 55%. Increasing his activity. Diabetes mellitus type 2: Blood sugars running slightly high. Continuing with sliding scale insulin. Continue home dose of Glucotrol. Have improved with weaning the steroids. Hypertension: Continue Coreg and clonidine for blood pressure. Disposition: Still has significant oxygen demand. Increase activity. Castanon out. Continue to increase activity. Long discussion with the patient regarding the dispo. he likely has survived the acute phase of the infection, but has a very long way to go with recovery. Can likely go to a negative pressure room on HFNC pre pulm. MSSA bacteremia: Patient has received course of IV antibiotics per ID.
[2019-09-22] MEDS: HYDROcodone/Chlorphen Polis 5 ML UDCUP PO PRN (22:14)
[2019-09-23] MEDS: Albuterol 200 PUFF (6.7GM INHALER) INH SCH ×6 (02:43→22:36)
[2019-09-23] MEDS: glipiZIDE 5 MG TAB PO SCH ×2 (08:30→17:22)
[2019-09-23] MEDS: guaiFENesin ER 600 MG TAB PO SCH ×2 (08:53→19:37)
[2019-09-23] MEDS: Carvedilol 6.25 MG TAB PO SCH ×2 (08:53→19:36)
[2019-09-23] MEDS: Apixaban 5 MG TAB PO SCH ×2 (08:53→19:36)
[2019-09-23] MEDS: Famotidine 20 MG TAB PO SCH ×2 (08:53→19:37)
[2019-09-23] MEDS: Atorvastatin Calcium 10 MG TAB PO SCH (08:54)
[2019-09-23] MEDS: Amlodipine 10 MG TAB PO SCH (08:54)
[2019-09-23] MEDS: methylPREDNISolone Sod Succ 40 MG VIAL IVP SCH (08:55)
[2019-09-23] MEDS: Polyethylene Glycol 3350 17 GM Packet PO SCH (08:55)
--- NOTE | 2019-09-23 11:10 | PRG ---
DATE OF SERVICE: 09/23/2019 SUBJECTIVE: Mr. Bonilla remains in the CCU on high-flow oxygen. Overall, his status is not changed for the better or worse over the last 24 hours. OBJECTIVE: VITAL SIGNS: His temperature 99, pulse 66, blood pressure 126/74. Intake 2220, output 2710. HEENT: Unremarkable. NECK: No JVD. LUNGS: Coarse crackles. CARDIAC: S1 and S2. Regular. ABDOMEN: Soft. EXTREMITIES: No edema. LABORATORY DATA: No new labs were obtained except for a ferritin of 743, that is down from 2737 on 09/12/2019. ASSESSMENT: COVID-19 with pneumonia. Slowly improving inflammatory profile. PLAN: Right now, we are just awaiting a reduction in his oxygen requirement. He continues on methylprednisolone. Job ID: [id number]
[2019-09-23] MEDS: HYDROcodone/Acetaminophen 5/325 mg Tablet PO PRN (12:16)
[2019-09-23] MEDS: Benzonatate 100 MG CAP PO PRN (12:16)
--- NOTE | 2019-09-23 17:23 | PDOC.HOSPP ---
- Subjective Subjective: Seen and examined in the intensive care unit. Patient remains on highflown nasal cannula, though saturating better than when first hospitalized. He is sitting up in the chair eating his lunch. He is talking in full sentences. Time was given for questions, all answered in detail. - Objective Vital Signs & Weight: Vital Signs (12 hours) Temp BP Pulse Ox 09/23/19 12:00 98.9 F 09/23/19 08:54 127/78 09/23/19 08:53 127/78 09/23/19 08:00 99 F 09/23/19 07:14 92 L Weight Admit Weight 352 lb Weight 352 lb Most Recent Monitor Data Heart Rate from ECG 64 NIBP 128/77 NIBP BP-Mean 94 Respiration from ECG 19 SpO2 95 I&O: 09/22/19 09/23/19 09/24/19 06:59 06:59 06:59 Intake Total 1960 2220 660 Output Total 2500 2710 1110 Balance -540 -490 -450 Result Diagrams: 09/22/19 03:54 09/22/19 03:54 Additional Labs: Accuchecks 09/23/19 09/23/19 09/22/19 09:29 05:59 20:26 POC Glucose 161 H 116 H 250 H 09/22/19 09/22/19 09/21/19 18:04 06:17 20:14 POC Glucose 247 H 110 240 H 09/21/19 09/21/19 16:29 11:35 POC Glucose 267 H 278 H Radiology Reviewed by me: Yes Hospitalist ROS - Review of Systems All other systems reviewed; all pertinent +/- noted in HPI/Subj - Medication Medications: Active Medications Generic Name Dose Route Start Last Admin Trade Name Freq PRN Reason Stop Dose Admin Acetaminophen 650 mg 09/07/19 22:24 09/14/19 20:06 Tylenol PO 650 mg Q4H PRN Administration Headache/Fever/Mild Pain (1-3) Hydrocodone Bitart/Acetaminophen 1 tab 09/19/19 18:31 09/23/19 12:16 [place] 5/325 PO 1 tab Q4H PRN Administration BREAKTHROUGH Cough Albuterol Sulfate 2 puff 09/15/19 06:30 09/23/19 14:43 Proventil Hfa INH 2 puff [id number] VANDANA Administration Amlodipine Besylate 10 mg 09/08/19 09:00 09/23/19 08:54 Norvasc PO 10 mg DAILY VANDANA Administration Apixaban 5 mg 09/22/19 09:00 09/23/19 08:53 Eliquis PO 5 mg BID VANDANA Administration Atorvastatin Calcium 10 mg 09/08/19 09:00 09/23/19 08:54 Lipitor PO 10 mg DAILY VANDANA Administration Benzonatate 100 mg 09/13/19 00:18 09/23/19 12:16 Tessalon PO 100 mg TIDPRN PRN Administration Cough Carvedilol 6.25 mg 09/08/19 09:00 09/23/19 08:53 Coreg PO 6.25 mg BID VANDANA Administration Chlorphenir/Hydrocodone Polistirex 10 ml 09/19/19 18:29 09/22/19 22:14 Tussionex PO 10 ml Q12H PRN Administration Cough Clonidine 0.1 mg 09/07/19 22:15 09/11/19 12:32 Catapres PO 0.1 mg BID PRN Administration SBP > 160 use second Famotidine 20 mg 09/08/19 09:00 09/23/19 08:53 Pepcid PO 20 mg BID VANDANA Administration Glipizide 5 mg 09/08/19 07:30 09/23/19 08:30 Glucotrol PO 5 mg BID-AC VANDANA Administration Guaifenesin 1,200 mg 09/19/19 21:00 09/23/19 08:53 Mucinex PO 1,200 mg Q12HR VANDANA Administration Insulin Human Regular 0 units 09/07/19 22:16 09/22/19 20:10 Humulin R SC 4 unit .MODERATE SLIDING SC PRN Administration Moderate Correctional Scale Methylprednisolone Sodium Succinate 40 mg 09/21/19 09:00 09/23/19 08:55 Solu-Medrol IVP 40 mg DAILY VANDANA Administration Ondansetron HCl 4 mg 09/07/19 22:15 09/21/19 10:14 Zofran IVP 4 mg Q6H PRN Administration Nausea/Vomiting use 1st Polyethylene Glycol 17 gm 09/08/19 09:00 09/23/19 08:55 Miralax PO 17 gm DAILY VANDANA Administration Sodium Chloride 10 ml 09/08/19 09:00 09/23/19 08:55 Flush - Normal Saline IVF 10 ml Q12HR VANDANA Administration Sterile Water 1 ml 05/22/20 12:46 09/22/19 09:04 Bacteriostatic Water FS 1 ml PRN PRN Administration RECONSTITUTION - Exam General Appearance: NAD, awake alert Eye: PERRL ENT: normocephalic atraumatic, moist mucosa Neck: supple, symmetric, no lymphadenopathy Heart: no murmur, no gallops, no rubs Respiratory: no rales, normal chest expansion, no tachypnea, rhonchi, wheezes Gastrointestinal: soft, non-tender, non-distended, normal bowel sounds, no guarding, no rigidity Gastrointestinal - other findings: obese Extremities: 1+ LE edema Skin: no rashes Neurological: cranial nerve grossly intact, no focal deficits Musculoskeletal: generalized weakness Psychiatric: A&O x 3 Hosp A/P (1) Acute respiratory failure with hypoxia Code(s): J96.01 - ACUTE RESPIRATORY FAILURE WITH HYPOXIA Status: Acute (2) COVID-19 Code(s): U07.1 - COVID-19 Status: Acute (3) Chest pain Code(s): R07.9 - CHEST PAIN, UNSPECIFIED Status: Acute Qualifiers: Chest pain type: chest pain on breathing Qualified Code(s): R07.1 - Chest pain on breathing; R07.81 - Pleurodynia (4) Cholelithiasis Code(s): K80.20 - CALCULUS OF GALLBLADDER W/O CHOLECYSTITIS W/O OBSTRUCTION Status: Acute Qualifiers: Cholelithiasis location: gallbladder Cholecystitis presence: without cholecystitis (5) Diabetes mellitus Code(s): E11.9 - TYPE 2 DIABETES MELLITUS WITHOUT COMPLICATIONS Status: Acute (6) Fever Code(s): R50.9 - FEVER, UNSPECIFIED Status: Acute Qualifiers: Fever type: unspecified Qualified Code(s): R50.9 - Fever, unspecified (7) Hyperlipidemia Code(s): E78.5 - HYPERLIPIDEMIA, UNSPECIFIED Status: Acute (8) Hypertension Code(s): I10 - ESSENTIAL (PRIMARY) HYPERTENSION Status: Acute (9) MSSA bacteremia Code(s): R78.81 - BACTEREMIA; B95.61 - METHICILLIN SUSCEP STAPH INFCT CAUSING DIS CLASSD ELSWHR Status: Acute (10) Obstructive sleep apnea Code(s): G47.33 - OBSTRUCTIVE SLEEP APNEA (ADULT) (PEDIATRIC) Status: Acute (11) Morbid obesity Code(s): E66.01 - MORBID (SEVERE) OBESITY DUE TO EXCESS CALORIES Status: Chronic - Plan Plan: intensive care unit critical care consultation, recommendations appreciated infectious disease consultation, recommendations appreciated patient saturating adequately on highflown nasal cannula wean oxygen as able patient is on appropriate maximal medical therapy improve on mobility incentive spirometry Q1 hour while awake breathing treatments full dose anticoagulation with Eliquis significantly elevated D dimer continue home medications as able blood pressure control blood sugar control G.I. prophylaxis DVT prophylaxis
[2019-09-23] MEDS: Insulin Regular 300 UNITS/3 ML VIAL SC PRN (19:40)
[2019-09-23] MEDS: HYDROcodone/Chlorphen Polis 5 ML UDCUP PO PRN (20:43)
[2019-09-24] MEDS: Albuterol 200 PUFF (6.7GM INHALER) INH SCH ×6 (03:13→22:10)
[2019-09-24] MEDS: Benzonatate 100 MG CAP PO PRN ×2 (08:45→17:20)
[2019-09-24] MEDS: glipiZIDE 5 MG TAB PO SCH ×2 (08:45→17:20)
[2019-09-24] MEDS: guaiFENesin ER 600 MG TAB PO SCH ×2 (08:45→20:22)
[2019-09-24] MEDS: Carvedilol 6.25 MG TAB PO SCH ×2 (08:46→20:22)
[2019-09-24] MEDS: HYDROcodone/Acetaminophen 5/325 mg Tablet PO PRN (08:46)
[2019-09-24] MEDS: Famotidine 20 MG TAB PO SCH ×2 (08:46→20:22)
[2019-09-24] MEDS: Amlodipine 10 MG TAB PO SCH (08:47)
[2019-09-24] MEDS: Apixaban 5 MG TAB PO SCH ×2 (08:48→20:22)
[2019-09-24] MEDS: Atorvastatin Calcium 10 MG TAB PO SCH (08:48)
[2019-09-24] MEDS: methylPREDNISolone Sod Succ 40 MG VIAL IVP SCH (08:48)
[2019-09-24] MEDS: Polyethylene Glycol 3350 17 GM Packet PO SCH (08:50)
--- NOTE | 2019-09-24 09:09 | PRG ---
DATE OF SERVICE: 09/24/2019 SUBJECTIVE: The patient remains on high-flow oxygen. He is still coughing profusely. Has no other complaints at this time. OBJECTIVE: VITAL SIGNS: His temperature is 98.7, pulse 68, blood pressure 123/76, O2 saturation generally in the low 90s on the high-flow oxygen. 24-hour intake 1520, output 2110. HEENT: Unremarkable. NECK: No JVD. LUNGS: Fairly clear. CARDIAC: S1, S2. Regular. ABDOMEN: Soft. EXTREMITIES: No edema. ASSESSMENT: 1. COVID-19 with pneumonia. 2. Acute hypoxic respiratory failure. PLAN: We are going to change out his air probe, make sure his O2 saturations are okay. If so, then he can probably be transferred out to the [place] [id number] isolation floor, but I think he will have to continue high-flow oxygen for the time being. There is really no other reason to have him in the ICU at this time. Job ID: [id number]
[2019-09-24] MEDS: Insulin Regular 300 UNITS/3 ML VIAL SC PRN ×2 (12:51→18:43)
--- NOTE | 2019-09-24 14:38 | PDOC.EVN ---
Event Note - Event Note Event Note: Non-billable note only. In an effort to conserve PPE I did not physically examine the patient today. Pulmonology/Critical care and infectious disease specialist are appropriately managing this case. The patient is on appropriate maximum medical therapy. The patient continues to have severe coughing. He remains on highflown nasal cannula, in the ICU. Chart reviewed, labs reviewed, medications reviewed. Patient is making a slow recovery from COVID 19. Patient may develop pulmonary scarring and chronic illness from the severity of his COVID 19 infection.
[2019-09-24] MEDS: HYDROcodone/Chlorphen Polis 5 ML UDCUP PO PRN (20:41)
[2019-09-25] MEDS: Albuterol 200 PUFF (6.7GM INHALER) INH SCH ×6 (02:35→22:10)
[2019-09-25] MEDS: Benzonatate 100 MG CAP PO PRN ×2 (05:16→13:44)
[2019-09-25] MEDS ORDERED: methylPREDNISolone Sod Succ 40 MG VIAL IVP SCH ×2 (08:00→12:00)
--- NOTE | 2019-09-25 08:32 | PRG ---
DATE OF SERVICE: 09/25/2019 SUBJECTIVE: The patient remains in the ICU on high-flow oxygen 75%. He is still struggling to breathe at times. OBJECTIVE: VITAL SIGNS: Temperature 98.6, pulse 75, blood pressure 131/96. His O2 sats ranged from the 80s to low 90s. HEENT: Unremarkable. NECK: No adenopathy or JVD. LUNGS: Clear. CARDIAC: S1 and S2. Regular. ABDOMEN: Obese. EXTREMITIES: No edema. LABORATORY DATA: None were done today. ASSESSMENT: 1. COVID-19 infection with pneumonia. 2. Acute hypoxic respiratory failure. 3. Morbid obesity. 4. Diabetes mellitus. PLAN: 1. I am going to go ahead and increase his steroid dose because of the continued severe hypoxemia. 2. Leave in CCU. 3. Check x-ray and labs tomorrow. Job ID: [id number]
[2019-09-25] MEDS: guaiFENesin ER 600 MG TAB PO SCH ×2 (08:58→21:20)
[2019-09-25] MEDS: Apixaban 5 MG TAB PO SCH ×2 (08:58→21:19)
[2019-09-25] MEDS: Amlodipine 10 MG TAB PO SCH (08:58)
[2019-09-25] MEDS: Polyethylene Glycol 3350 17 GM Packet PO SCH (08:58)
[2019-09-25] MEDS: Atorvastatin Calcium 10 MG TAB PO SCH (08:58)
[2019-09-25] MEDS: glipiZIDE 5 MG TAB PO SCH ×2 (08:59→16:07)
[2019-09-25] MEDS: Carvedilol 6.25 MG TAB PO SCH ×2 (08:59→21:19)
[2019-09-25] MEDS: Famotidine 20 MG TAB PO SCH ×2 (08:59→21:20)
[2019-09-25] MEDS: HYDROcodone/Chlorphen Polis 5 ML UDCUP PO PRN ×2 (09:47→22:11)
[2019-09-25] MEDS: Insulin Regular 300 UNITS/3 ML VIAL SC PRN ×2 (11:37→17:15)
--- NOTE | 2019-09-25 15:14 | PDOC.HOSPP ---
- Subjective Encounter Date: 09/25/19 Encounter Time: 12:15 Subjective: on high flow oxygen sitting in chair - Objective Vital Signs & Weight: Vital Signs (12 hours) Temp Pulse BP Pulse Ox 09/25/19 14:18 85 L 09/25/19 12:00 98.6 F 09/25/19 10:46 92 L 09/25/19 08:59 148/82 H 09/25/19 08:58 92 148/82 H 09/25/19 08:00 98.5 F 95 09/25/19 04:00 98.6 F Weight Admit Weight 352 lb Weight 352 lb Most Recent Monitor Data Heart Rate from ECG 79 NIBP 145/83 NIBP BP-Mean 103 Respiration from ECG 22 SpO2 92 I&O: 09/24/19 09/25/19 09/26/19 06:59 06:59 06:59 Intake Total 1520 1980 740 Output Total 2110 8693 1450 Balance -590 -645 -710 Result Diagrams: 09/22/19 03:54 09/22/19 03:54 Additional Labs: Accuchecks 09/25/19 09/25/19 09/24/19 11:00 05:16 20:55 POC Glucose 232 H 107 186 H 09/24/19 17:18 POC Glucose 271 H Hospitalist ROS - Medication Medications: Active Medications Generic Name Dose Route Start Last Admin Trade Name Freq PRN Reason Stop Dose Admin Acetaminophen 650 mg 09/07/19 22:24 09/14/19 20:06 Tylenol PO 650 mg Q4H PRN Administration Headache/Fever/Mild Pain (1-3) Hydrocodone Bitart/Acetaminophen 1 tab 09/19/19 18:31 09/24/19 08:46 [place] 5/325 PO 1 tab Q4H PRN Administration BREAKTHROUGH Cough Albuterol Sulfate 2 puff 09/15/19 06:30 09/25/19 14:17 Proventil Hfa INH 2 puff [id number] VANDANA Administration Amlodipine Besylate 10 mg 09/08/19 09:00 09/25/19 08:58 Norvasc PO 10 mg DAILY VANDANA Administration Apixaban 5 mg 09/22/19 09:00 09/25/19 08:58 Eliquis PO 5 mg BID VANDANA Administration Atorvastatin Calcium 10 mg 09/08/19 09:00 09/25/19 08:58 Lipitor PO 10 mg DAILY VANDANA Administration Benzonatate 100 mg 09/13/19 00:18 09/25/19 13:44 Tessalon PO 100 mg TIDPRN PRN Administration Cough Carvedilol 6.25 mg 09/08/19 09:00 09/25/19 08:59 Coreg PO 6.25 mg BID VANDANA Administration Chlorphenir/Hydrocodone Polistirex 10 ml 09/19/19 18:29 09/25/19 09:47 Tussionex PO 10 ml Q12H PRN Administration Cough Clonidine 0.1 mg 09/07/19 22:15 09/11/19 12:32 Catapres PO 0.1 mg BID PRN Administration SBP > 160 use second Famotidine 20 mg 09/08/19 09:00 09/25/19 08:59 Pepcid PO 20 mg BID VANDANA Administration Glipizide 5 mg 09/08/19 07:30 09/25/19 08:59 Glucotrol PO 5 mg BID-AC VANDANA Administration Guaifenesin 1,200 mg 09/19/19 21:00 09/25/19 08:58 Mucinex PO 1,200 mg Q12HR VANDANA Administration Insulin Human Regular 0 units 09/07/19 22:16 09/25/19 11:37 Humulin R SC 4 unit .MODERATE SLIDING SC PRN Administration Moderate Correctional Scale Ondansetron HCl 4 mg 09/07/19 22:15 09/21/19 10:14 Zofran IVP 4 mg Q6H PRN Administration Nausea/Vomiting use 1st Polyethylene Glycol 17 gm 09/08/19 09:00 09/25/19 08:58 Miralax PO Not Given DAILY VANDANA Sodium Chloride 10 ml 09/08/19 09:00 09/25/19 09:00 Flush - Normal Saline IVF 10 ml Q12HR VANDANA Administration Sterile Water 1 ml 09/15/19 12:46 09/22/19 09:04 Bacteriostatic Water FS 1 ml PRN PRN Administration RECONSTITUTION - Exam General Appearance: awake alert Eye: PERRL, anicteric sclera ENT: no oropharyngeal lesions, moist mucosa Neck: supple, symmetric Heart: no murmur, no gallops Respiratory: no wheezes, no rales, rhonchi Gastrointestinal: soft, non-tender, non-distended, normal bowel sounds Extremities: no cyanosis, no edema Neurological: cranial nerve grossly intact, no focal deficits Psychiatric: normal affect, A&O x 3 Hosp A/P (1) Pneumonia due to COVID-19 virus Code(s): U07.1 - COVID-19; J12.89 - OTHER VIRAL PNEUMONIA Status: Acute (2) Acute respiratory failure with hypoxia Code(s): J96.01 - ACUTE RESPIRATORY FAILURE WITH HYPOXIA Status: Acute (3) MSSA bacteremia Code(s): R78.81 - BACTEREMIA; B95.61 - METHICILLIN SUSCEP STAPH INFCT CAUSING DIS CLASSD ELSWHR Status: Acute (4) Hypertension Code(s): I10 - ESSENTIAL (PRIMARY) HYPERTENSION Status: Chronic Qualifiers: Hypertension type: essential hypertension Qualified Code(s): I10 - Essential (primary) hypertension (5) Obstructive sleep apnea Code(s): G47.33 - OBSTRUCTIVE SLEEP APNEA (ADULT) (PEDIATRIC) Status: Chronic (6) Cholelithiasis Code(s): K80.20 - CALCULUS OF GALLBLADDER W/O CHOLECYSTITIS W/O OBSTRUCTION Status: Chronic Qualifiers: Cholelithiasis location: gallbladder Cholecystitis presence: without cholecystitis (7) Hyperlipidemia Code(s): E78.5 - HYPERLIPIDEMIA, UNSPECIFIED Status: Chronic (8) Morbid obesity Code(s): E66.01 - MORBID (SEVERE) OBESITY DUE TO EXCESS CALORIES Status: Chronic - Plan is on high flow oxygen, steroids, eliquis hemostable continue norvasc, coreg, glipizide to ambulate as tolerated in the room
[2019-09-25] MEDS: methylPREDNISolone Sod Succ 40 MG VIAL IVP SCH ×2 (16:06→21:21)
[2019-09-26] MEDS: methylPREDNISolone Sod Succ 40 MG VIAL IVP SCH ×4 (03:00→20:57)
[2019-09-26] MEDS: Albuterol 200 PUFF (6.7GM INHALER) INH SCH ×6 (03:07→22:46)
[2019-09-26 04:21] LABS: #Lymphocytes 0.7 thou/uL (1.20-3.40); #Monocytes 0.3 thou/uL (0.11-0.59); #Neutrophils 7.5 thou/uL (1.40-6.50); %Eosinophils 0.1 % (0.0-10.0); %Lymphocytes 8.3 % (21.0-51.0); %Monocytes 3.5 % (0.0-10.0); %Neutrophils 88.1 % (42.0-75.0); Hemoglobin 14.3 g/dL (14.0-18.0); Mean Corpuscular Hemoglobin 31.3 pg (27.0-31.0); Mean Corpuscular Volume 92.1 fL (78.0-98.0); Mean Platelet Volume 7.8 fL (7.4-10.4); Platelet Count 240 thou/uL (130-400); RBC Distribution Width 12.6 % (11.5-14.5); Red Blood Cell (RBC) Count 4.56 mill/uL (4.70-6.10); White Blood Cell (WBC) Count 8.5 thou/uL (4.8-10.8)
[2019-09-26 04:28] LABS: Anion Gap 12 mmol/L (10-20); BUN (Urea Nitrogen) 10 mg/dL (8.9-20.6); Calc. Creatinine Clearance 362 mL/min (70-130); Carbon Dioxide 29 mmol/L (22-29); Chloride 96 mmol/L (98-107); Estimated GFR-MDRD Greater than 90; Glucose 239 mg/dL (70-105); Potassium 4.8 mmol/L (3.5-5.1); Sodium 132 mmol/L (136-145)
[2019-09-26] MEDS: Insulin Regular 300 UNITS/3 ML VIAL SC PRN ×4 (06:10→21:13)
--- NOTE | 2019-09-26 07:46 | RAD ---
EXAM: CHEST ONE VIEW HISTORY: Pneumonia, positive COVID. COMPARISON: 09/20/2019 FINDINGS: Diffuse interstitial and alveolar opacities are seen throughout the lungs bilaterally. No pleural flu id is appreciated. Cardiac silhouette is magnified by projection. Chest is overall stable compared to the prior exam. IMPRESSION: Extensive and diffuse bilateral airspace disease.
[2019-09-26] MEDS: Amlodipine 10 MG TAB PO SCH (08:52)
[2019-09-26] MEDS: Famotidine 20 MG TAB PO SCH ×2 (08:52→20:56)
[2019-09-26] MEDS: glipiZIDE 5 MG TAB PO SCH ×2 (08:53→16:53)
[2019-09-26] MEDS: Apixaban 5 MG TAB PO SCH ×2 (08:53→20:56)
[2019-09-26] MEDS: guaiFENesin ER 600 MG TAB PO SCH ×2 (08:53→20:56)
[2019-09-26] MEDS: Atorvastatin Calcium 10 MG TAB PO SCH (08:53)
[2019-09-26] MEDS: Carvedilol 6.25 MG TAB PO SCH ×2 (08:53→20:56)
[2019-09-26] MEDS: Polyethylene Glycol 3350 17 GM Packet PO SCH (08:54)
[2019-09-26] MEDS: Benzonatate 100 MG CAP PO PRN (08:57)
--- NOTE | 2019-09-26 13:12 | PDOC.HOSPP ---
- Subjective Encounter Date: 09/26/19 Encounter Time: 12:00 Subjective: is sitting in chair, no sob at rest - Objective Vital Signs & Weight: Vital Signs (12 hours) Temp Pulse BP Pulse Ox 09/26/19 11:00 97.7 F 09/26/19 08:53 144/87 H 09/26/19 08:52 58 L 144/87 H 09/26/19 08:00 97.6 F 95 09/26/19 06:52 95 09/26/19 03:00 96.8 F L Weight Admit Weight 352 lb Weight 352 lb Most Recent Monitor Data Heart Rate from ECG 98 NIBP 144/90 NIBP BP-Mean 108 Respiration from ECG 24 SpO2 92 I&O: 09/25/19 09/26/19 09/27/19 06:59 06:59 06:59 Intake Total 1980 1520 740 Output Total 2060 1866 500 Balance -609 -1064 551 Result Diagrams: 09/26/19 03:25 09/26/19 03:25 Additional Labs: Accuchecks 09/26/19 09/26/19 09/25/19 10:56 06:13 21:32 POC Glucose 318 H 231 H 249 H 09/25/19 17:13 POC Glucose 254 H Hospitalist ROS - Medication Medications: Active Medications Generic Name Dose Route Start Last Admin Trade Name Freq PRN Reason Stop Dose Admin Acetaminophen 650 mg 09/07/19 22:24 09/14/19 20:06 Tylenol PO 650 mg Q4H PRN Administration Headache/Fever/Mild Pain (1-3) Hydrocodone Bitart/Acetaminophen 1 tab 09/19/19 18:31 09/24/19 08:46 [place] 5/325 PO 1 tab Q4H PRN Administration BREAKTHROUGH Cough Albuterol Sulfate 2 puff 09/15/19 06:30 09/26/19 10:12 Proventil Hfa INH 2 puff [id number] VANDANA Administration Amlodipine Besylate 10 mg 09/08/19 09:00 09/26/19 08:52 Norvasc PO 10 mg DAILY VANDANA Administration Apixaban 5 mg 09/22/19 09:00 09/26/19 08:53 Eliquis PO 5 mg BID VANDANA Administration Atorvastatin Calcium 10 mg 09/08/19 09:00 09/26/19 08:53 Lipitor PO 10 mg DAILY VANDANA Administration Benzonatate 100 mg 09/13/19 00:18 09/26/19 08:57 Tessalon PO 100 mg TIDPRN PRN Administration Cough Carvedilol 6.25 mg 09/08/19 09:00 09/26/19 08:53 Coreg PO 6.25 mg BID VANDANA Administration Chlorphenir/Hydrocodone Polistirex 10 ml 09/19/19 18:29 09/25/19 22:11 Tussionex PO 10 ml Q12H PRN Administration Cough Clonidine 0.1 mg 09/07/19 22:15 09/11/19 12:32 Catapres PO 0.1 mg BID PRN Administration SBP > 160 use second Famotidine 20 mg 09/08/19 09:00 09/26/19 08:52 Pepcid PO 20 mg BID VANDANA Administration Glipizide 5 mg 09/08/19 07:30 09/26/19 08:53 Glucotrol PO 5 mg BID-AC VANDANA Administration Guaifenesin 1,200 mg 09/19/19 21:00 09/26/19 08:53 Mucinex PO 1,200 mg Q12HR VANDANA Administration Insulin Human Regular 0 units 09/07/19 22:16 09/26/19 10:56 Humulin R SC 8 unit .MODERATE SLIDING SC PRN Administration Moderate Correctional Scale Methylprednisolone Sodium Succinate 40 mg 09/25/19 15:00 09/26/19 08:52 Solu-Medrol IVP 40 mg Q6H VANDANA Administration Ondansetron HCl 4 mg 09/07/19 22:15 09/21/19 10:14 Zofran IVP 4 mg Q6H PRN Administration Nausea/Vomiting use 1st Polyethylene Glycol 17 gm 09/08/19 09:00 09/26/19 08:54 Miralax PO Not Given DAILY VANDANA Sodium Chloride 10 ml 09/08/19 09:00 09/26/19 08:54 Flush - Normal Saline IVF 10 ml Q12HR VANDANA Administration Sterile Water 1 ml 09/15/19 12:46 09/22/19 09:04 Bacteriostatic Water FS 1 ml PRN PRN Administration RECONSTITUTION - Exam General Appearance: awake alert Eye: PERRL, anicteric sclera ENT: no oropharyngeal lesions, moist mucosa Neck: supple, no JVD Heart: RRR Respiratory: normal chest expansion, tachypneic Gastrointestinal: soft, non-tender, non-distended, normal bowel sounds Extremities: no cyanosis, no edema Neurological: cranial nerve grossly intact, no focal deficits Psychiatric: normal affect, A&O x 3 Hosp A/P (1) Pneumonia due to COVID-19 virus Code(s): U07.1 - COVID-19; J12.89 - OTHER VIRAL PNEUMONIA Status: Acute (2) Acute respiratory failure with hypoxia Code(s): J96.01 - ACUTE RESPIRATORY FAILURE WITH HYPOXIA Status: Acute (3) MSSA bacteremia Code(s): R78.81 - BACTEREMIA; B95.61 - METHICILLIN SUSCEP STAPH INFCT CAUSING DIS CLASSD ELSWHR Status: Acute (4) Hypertension Code(s): I10 - ESSENTIAL (PRIMARY) HYPERTENSION Status: Chronic Qualifiers: Hypertension type: essential hypertension Qualified Code(s): I10 - Essential (primary) hypertension (5) Obstructive sleep apnea Code(s): G47.33 - OBSTRUCTIVE SLEEP APNEA (ADULT) (PEDIATRIC) Status: Chronic (6) Cholelithiasis Code(s): K80.20 - CALCULUS OF GALLBLADDER W/O CHOLECYSTITIS W/O OBSTRUCTION Status: Chronic Qualifiers: Cholelithiasis location: gallbladder Cholecystitis presence: without cholecystitis (7) Hyperlipidemia Code(s): E78.5 - HYPERLIPIDEMIA, UNSPECIFIED Status: Chronic (8) Morbid obesity Code(s): E66.01 - MORBID (SEVERE) OBESITY DUE TO EXCESS CALORIES Status: Chronic - Plan is on high flow oxygen, steroids, eliquis hemostable continue norvasc, coreg, glipizide to ambulate as tolerated in the room still has significant changes seen on cxr similar to prior one, has sob on min exertion in the room.
[2019-09-26] MEDS: CEFAZOLIN 2 GM in Premix Bag 1 BAG IVPB SCH (17:40)
--- NOTE | 2019-09-26 17:58 | PRG ---
DATE OF SERVICE: 09/26/2019 SUBJECTIVE: Still in the unit, coughing pretty much every few minutes. No chest pain. No abdominal pain or diarrhea. Feels comfortable at rest. OBJECTIVE: VITAL SIGNS: His T-max 98.8, blood pressure 160/99, heart rate 61, respiratory rate 20, O2 saturation 94 with 60 L/minute flow rate with high-flow nasal cannula. LUNGS: With symmetric air entry. HEART: S1 and S2, regular rate. ABDOMEN: Soft, not distended. LABORATORY DATA: The white cell count 8.5, hemoglobin 14, and platelets 240. D-dimer is at 4.06. The last ferritin is from the 30th and needs to be repeated and likewise the CRP needs to be repeated. The patient had a chest x-ray, which showed extensive bilateral airspace disease. ASSESSMENT AND DISCUSSION: Severe COVID infection, methicillin-sensitive Staph aureus bacteremia, Ancef will be restarted. The possibility of spinal infection is considered high in the differential diagnosis, and he eventually will need an MRI of his thoracic spine. Still quite protracted course here in the unit. We will repeat ferritin and CRP. Hopefully, we will start allowing a tapering of his O2 supplementation soon. Job ID: [id number] MTDD
--- NOTE | 2019-09-26 18:16 | PRG ---
DATE OF SERVICE: 09/26/2019 SUBJECTIVE: The patient coughing intermittently. No chest pain. No dyspnea at rest. No abdominal pain. No diarrhea. OBJECTIVE: VITAL SIGNS: He has been afebrile. Blood pressure 160/100, respiratory rate 20, O2 saturation 91 to 94 with 60 flow rate in high-flow nasal cannula. LUNGS: Symmetric air entry. HEART: S1 and S2 without crackles or wheezing. ABDOMEN: Soft, not distended. EXTREMITIES: Moves extremities equally. LABORATORY DATA: White cell count 8.5, hemoglobin 14, and platelets 240, and his D-dimer is at 4.06, and ferritin was last repeated in last month and CRP likewise. Chest x-ray with extensive bilateral airspace disease. Staph aureus in the blood cultures. ASSESSMENT AND DISCUSSION: COVID-19 pneumonia as well as Staph aureus bacteremia with probable thoracic spine infection, not yet evaluated because of his weight, inability to obtain an MRI on arrival, so now he has this severe COVID infection, and he received convalescent plasma and tocilizumab, and it seems like it is steadily improving in a very slow fashion. We will go ahead and repeat his markers and resume Ancef that had been discontinued for some reason. Job ID: [id number]
[2019-09-26] MEDS: HYDROcodone/Chlorphen Polis 5 ML UDCUP PO PRN (20:55)
[2019-09-26] MEDS: Bacteriostatic Water 30 ML VIAL FS PRN (20:57)
--- NOTE | 2019-09-26 21:41 | PRG ---
DATE OF SERVICE: 09/26/2019 SUBJECTIVE: Billy Bonilla still is on high-flow oxygen. His vital signs remained stable. He is still sleeping in a chair. He is quite sedentary. Otherwise, he is unchanged. LABORATORY DATA: White count 8.5, hemoglobin 14.3, platelets 240. Electrolytes; sodium 132, potassium 4.8, chloride 96, bicarb 29, BUN 10, creatinine 0.6. IMPRESSION: 1. COVID-19 pneumonia. 2. ? Paraspinous abscess. PLAN: Continue supportive care. We will try to attempts would be acceptable. Job ID: [id number]
[2019-09-27] MEDS: CEFAZOLIN 2 GM in Premix Bag 1 BAG IVPB SCH ×3 (02:19→17:03)
[2019-09-27] MEDS: methylPREDNISolone Sod Succ 40 MG VIAL IVP SCH ×4 (02:20→20:55)
[2019-09-27] MEDS: Albuterol 200 PUFF (6.7GM INHALER) INH SCH ×6 (02:22→23:00)
[2019-09-27] MEDS: Insulin Regular 300 UNITS/3 ML VIAL SC PRN ×4 (06:02→21:05)
--- NOTE | 2019-09-27 08:24 | RAD ---
PORTABLE CHEST: HISTORY: Pneumonia. CCU followup. COMPARISON: 09/26/2019. FINDINGS/IMPRESSION: There are bilateral confluent alveolar infiltrates which are diffuse throughout both lungs. No signi ficant interval change apparent. POS: AGW
[2019-09-27] MEDS: Amlodipine 10 MG TAB PO SCH (08:54)
[2019-09-27] MEDS: Insulin Glargine 10 UNITS in Pre-Filled Syringe 1 EACH SC SCH ×2 (08:54→20:56)
[2019-09-27] MEDS: Famotidine 20 MG TAB PO SCH ×2 (08:54→20:55)
[2019-09-27] MEDS: guaiFENesin ER 600 MG TAB PO SCH ×2 (08:54→20:55)
[2019-09-27] MEDS: Carvedilol 6.25 MG TAB PO SCH ×2 (08:55→20:55)
[2019-09-27] MEDS: Apixaban 5 MG TAB PO SCH ×2 (08:55→20:56)
[2019-09-27] MEDS: glipiZIDE 5 MG TAB PO SCH ×2 (08:55→17:03)
[2019-09-27] MEDS: Polyethylene Glycol 3350 17 GM Packet PO SCH (08:55)
[2019-09-27] MEDS: Atorvastatin Calcium 10 MG TAB PO SCH (08:55)
[2019-09-27] MEDS: Benzonatate 100 MG CAP PO PRN (11:39)
--- NOTE | 2019-09-27 11:43 | STRESS ---
Acquisition Time: 2019-09-09 09:54:54 Total Exercise Time: 00:01:00 Test Indications: CHEST PAIN Medications: Protocol: LEXISCAN Max HR: 109 BPM 61% of Pred: 178 BPM Max BP: 138/076 mmHG Max Work Load: 1.0 METS THE PATIENT WAS INJECTED WITH LEXISCAN. HE DID NOT DEVELOP CHEST PAIN. THERE WAS NO SIGNIFICANT ST DEPRESSION. AWAIT NUCLEAR IMAGES FOR DEFINITIVE DIAGNOSIS. Confirmed by BLAINE APONTE ([id number]), city editor CARSON WALLIS ([id number]) on 09/27/2019 11:42:46 AM Referred By: MD Del SOSA Confirmed By:BLAINE APONTE
--- NOTE | 2019-09-27 13:24 | PDOC.HOSPP ---
- Subjective Encounter Date: 09/27/19 Encounter Time: 07:45 Subjective: is sitting in chair and sleeping no obvious distress per staff he cant mobilize to his bed due to severe sob - Objective Vital Signs & Weight: Vital Signs (12 hours) Temp Pulse BP Pulse Ox 09/27/19 12:00 98.3 F 09/27/19 09:00 97.5 F L 09/27/19 08:55 132/78 09/27/19 08:54 65 132/78 09/27/19 08:00 96 09/27/19 04:00 98.5 F 09/27/19 01:52 96 Weight Admit Weight 352 lb Weight 352 lb Most Recent Monitor Data Heart Rate from ECG 81 NIBP 126/82 NIBP BP-Mean 96 Respiration from ECG 23 SpO2 90 I&O: 09/26/19 09/27/19 09/28/19 06:59 06:59 06:59 Intake Total 1520 2612 740 Output Total 8593 3425 900 [facility] -2055 -813 -160 Result Diagrams: 09/26/19 03:25 09/26/19 03:25 Additional Labs: Accuchecks 09/27/19 09/27/19 09/26/19 11:48 06:04 21:15 POC Glucose 351 H 285 H 314 H 09/26/19 17:05 POC Glucose 265 H Hospitalist ROS - Medication Medications: Active Medications Generic Name Dose Route Start Last Admin Trade Name Freq PRN Reason Stop Dose Admin Acetaminophen 650 mg 09/07/19 22:24 09/14/19 20:06 Tylenol PO 650 mg Q4H PRN Administration Headache/Fever/Mild Pain (1-3) Hydrocodone Bitart/Acetaminophen 1 tab 09/19/19 18:31 09/24/19 08:46 [place] 5/325 PO 1 tab Q4H PRN Administration BREAKTHROUGH Cough Albuterol Sulfate 2 puff 09/15/19 06:30 09/27/19 06:25 Proventil Hfa INH 2 puff [id number] VANDANA Administration Amlodipine Besylate 10 mg 09/08/19 09:00 09/27/19 08:54 Norvasc PO 10 mg DAILY VANDANA Administration Apixaban 5 mg 09/22/19 09:00 09/27/19 08:55 Eliquis PO 5 mg BID VANDANA Administration Atorvastatin Calcium 10 mg 09/08/19 09:00 09/27/19 08:55 Lipitor PO 10 mg DAILY VANDNAA Administration Benzonatate 100 mg 09/13/19 00:18 09/27/19 11:39 Tessalon PO 100 mg TIDPRN PRN Administration Cough Carvedilol 6.25 mg 09/08/19 09:00 09/27/19 08:55 Coreg PO 6.25 mg BID VANDANA Administration Chlorphenir/Hydrocodone Polistirex 10 ml 09/19/19 18:29 09/26/19 20:55 Tussionex PO 10 ml Q12H PRN Administration Cough Clonidine 0.1 mg 09/07/19 22:15 09/11/19 12:32 Catapres PO 0.1 mg BID PRN Administration SBP > 160 use second Famotidine 20 mg 09/08/19 09:00 09/27/19 08:54 Pepcid PO 20 mg BID VANDANA Administration Glipizide 5 mg 09/08/19 07:30 09/27/19 08:55 Glucotrol PO 5 mg BID-AC VANDANA Administration Guaifenesin 1,200 mg 09/19/19 21:00 09/27/19 08:54 Mucinex PO 1,200 mg Q12HR VANDANA Administration Cefazolin Sodium/Dextrose 2 gm 50 mls @ 100 mls/hr 09/26/19 18:00 09/27/19 08 :56 / Device IVPB 50 mls 0200,1000,1800 VANDANA Administration Insulin Glargine 10 units/ 0.1 mls @ 0 mls/hr 09/27/19 09:00 09/27/19 08:54 Miscellaneous Medication SC 0.1 mls BID VANDANA Administration Insulin Human Regular 0 units 09/07/19 22:16 09/27/19 11:39 Humulin R SC 8 unit .MODERATE SLIDING SC PRN Administration Moderate Correctional Scale Methylprednisolone Sodium Succinate 40 mg 09/25/19 15:00 09/27/19 08:58 Solu-Medrol IVP 40 mg Q6H VANDANA Administration Ondansetron HCl 4 mg 09/07/19 22:15 09/21/19 10:14 Zofran IVP 4 mg Q6H PRN Administration Nausea/Vomiting use 1st Polyethylene Glycol 17 gm 09/08/19 09:00 09/27/19 08:55 Miralax PO Not Given DAILY VANDANA Sodium Chloride 10 ml 09/08/19 09:00 09/27/19 08:55 Flush - Normal Saline IVF 10 ml Q12HR VANDANA Administration Sterile Water 1 ml 09/15/19 12:46 09/26/19 20:57 Bacteriostatic Water FS 1 ml PRN PRN Administration RECONSTITUTION - Exam General Appearance: awake alert Eye: PERRL, anicteric sclera ENT: no oropharyngeal lesions, moist mucosa Neck: supple, no JVD Heart: RRR Respiratory: normal chest expansion, tachypneic Gastrointestinal: soft, non-distended, normal bowel sounds Extremities: no cyanosis, no edema Neurological: cranial nerve grossly intact, no focal deficits Hosp A/P (1) Pneumonia due to COVID-19 virus Code(s): U07.1 - COVID-19; J12.89 - OTHER VIRAL PNEUMONIA Status: Acute (2) Acute respiratory failure with hypoxia Code(s): J96.01 - ACUTE RESPIRATORY FAILURE WITH HYPOXIA Status: Acute (3) MSSA bacteremia Code(s): R78.81 - BACTEREMIA; B95.61 - METHICILLIN SUSCEP STAPH INFCT CAUSING DIS CLASSD ELSWHR Status: Acute (4) Hypertension Code(s): I10 - ESSENTIAL (PRIMARY) HYPERTENSION Status: Chronic Qualifiers: Hypertension type: essential hypertension Qualified Code(s): I10 - Essential (primary) hypertension (5) Obstructive sleep apnea Code(s): G47.33 - OBSTRUCTIVE SLEEP APNEA (ADULT) (PEDIATRIC) Status: Chronic (6) Cholelithiasis Code(s): K80.20 - CALCULUS OF GALLBLADDER W/O CHOLECYSTITIS W/O OBSTRUCTION Status: Chronic Qualifiers: Cholelithiasis location: gallbladder Cholecystitis presence: without cholecystitis (7) Hyperlipidemia Code(s): E78.5 - HYPERLIPIDEMIA, UNSPECIFIED Status: Chronic (8) Morbid obesity Code(s): E66.01 - MORBID (SEVERE) OBESITY DUE TO EXCESS CALORIES Status: Chronic - Plan is on high flow oxygen, steroids, eliquis hemostable continue norvasc, coreg, glipizide to ambulate as tolerated in the room has sob on min exertion in the room prognosis guarded
[2019-09-27] MEDS: HYDROcodone/Chlorphen Polis 5 ML UDCUP PO PRN (15:03)
--- NOTE | 2019-09-27 16:16 | PRG ---
DATE OF SERVICE: 09/27/2019 SUBJECTIVE: Mr. Bonilla remains on high-flow. We are trying to wean his O2 to minimize oxygen toxicity and tolerate sats in the mid-to-high 80s. OBJECTIVE: VITAL SIGNS: He is afebrile. Vital signs are otherwise stable. LUNGS: Otherwise unchanged. HEART: Otherwise unchanged. ABDOMEN: Otherwise unchanged. IMPRESSION: 1. COVID-19 pneumonia. 2. ? Paraspinous abscess with methicillin-sensitive Staph. PLAN: Continue supportive care. Job ID: [id number]
[2019-09-28] MEDS: CEFAZOLIN 2 GM in Premix Bag 1 BAG IVPB SCH ×3 (02:12→17:55)
[2019-09-28] MEDS: methylPREDNISolone Sod Succ 40 MG VIAL IVP SCH ×4 (02:13→20:09)
[2019-09-28] MEDS: HYDROcodone/Chlorphen Polis 5 ML UDCUP PO PRN ×2 (02:13→14:07)
[2019-09-28] MEDS: Albuterol 200 PUFF (6.7GM INHALER) INH SCH ×6 (02:50→23:49)
[2019-09-28] MEDS: Insulin Regular 300 UNITS/3 ML VIAL SC PRN ×4 (05:42→20:47)
[2019-09-28] MEDS: glipiZIDE 5 MG TAB PO SCH ×2 (07:24→16:13)
[2019-09-28 07:54] LABS: #Lymphocytes 0.9 thou/uL (1.20-3.40); #Monocytes 0.5 thou/uL (0.11-0.59); #Neutrophils 7.5 thou/uL (1.40-6.50); %Basophils 0.1 % (0.0-1.0); %Eosinophils 0.1 % (0.0-10.0); %Lymphocytes 9.8 % (21.0-51.0); %Monocytes 5.1 % (0.0-10.0); %Neutrophils 84.8 % (42.0-75.0); Hemoglobin 14.6 g/dL (14.0-18.0); Mean Corpuscular HGB CONC 33.3 g/dL (32.0-36.0); Mean Corpuscular Volume 93.3 fL (78.0-98.0); Platelet Count 219 thou/uL (130-400); RBC Distribution Width 12.5 % (11.5-14.5); Red Blood Cell (RBC) Count 4.72 mill/uL (4.70-6.10); White Blood Cell (WBC) Count 8.9 thou/uL (4.8-10.8)
[2019-09-28 08:13] LABS: ALT (SGPT) 86 U/L (8-55); AST (SGOT) 28 U/L (5-34); Albumin 3.3 g/dL (3.5-5.0); Alkaline Phosphatase 79 U/L (40-110); Anion Gap 12 mmol/L (10-20); BUN (Urea Nitrogen) 15 mg/dL (8.9-20.6); Bilirubin, Total 0.8 mg/dL (0.2-1.2); Calc. Creatinine Clearance 315 mL/min (70-130); Carbon Dioxide 28 mmol/L (22-29); Chloride 97 mmol/L (98-107); Estimated GFR-MDRD Greater than 90; Globulin 3.1 g/dL (2.4-3.5); Glucose 316 mg/dL (70-105); Potassium 4.7 mmol/L (3.5-5.1); Protein, Total 6.4 g/dL (6.0-8.3); Sodium 132 mmol/L (136-145)
[2019-09-28] MEDS: Amlodipine 10 MG TAB PO SCH (08:15)
[2019-09-28] MEDS: Apixaban 5 MG TAB PO SCH ×2 (08:16→20:06)
[2019-09-28] MEDS: Atorvastatin Calcium 10 MG TAB PO SCH (08:16)
[2019-09-28] MEDS: Carvedilol 6.25 MG TAB PO SCH ×2 (08:16→20:06)
[2019-09-28] MEDS: guaiFENesin ER 600 MG TAB PO SCH ×2 (08:16→20:06)
[2019-09-28] MEDS: Famotidine 20 MG TAB PO SCH ×2 (08:16→20:05)
[2019-09-28] MEDS: Insulin Glargine 10 UNITS in Pre-Filled Syringe 1 EACH SC SCH (08:16)
[2019-09-28] MEDS: Polyethylene Glycol 3350 17 GM Packet PO SCH (08:17)
--- NOTE | 2019-09-28 10:20 | RAD ---
PORTABLE CHEST: HISTORY: Pneumonia. Followup. COMPARISON: 09/27/2019. FINDINGS/IMPRESSION: Diffuse alveolar infiltrates are seen throughout both lungs. No significant change from yesterday. POS: AGW
--- NOTE | 2019-09-28 16:04 | PDOC.HOSPP ---
- Subjective Encounter Date: 09/28/19 Encounter Time: 09:45 Subjective: is sitting in chair, awake and oriented is eating well - Objective Vital Signs & Weight: Vital Signs (12 hours) Temp Pulse BP Pulse Ox 09/28/19 13:00 97.6 F 09/28/19 08:16 128/54 L 09/28/19 08:15 90 128/58 L 09/28/19 08:00 90 L 09/28/19 07:00 96.9 F L 09/28/19 05:00 98.1 F Weight Admit Weight 352 lb Weight 352 lb Most Recent Monitor Data Heart Rate from ECG 57 NIBP 143/85 NIBP BP-Mean 104 Respiration from ECG 19 SpO2 94 I&O: 09/27/19 09/28/19 09/29/19 06:59 06:59 06:59 Intake Total 2612 1651 630 Output Total 5765 6294 1100 Balance -813 -1049 -470 Result Diagrams: 09/28/19 07:29 09/28/19 07:29 Additional Labs: Accuchecks 09/28/19 09/28/19 09/27/19 10:22 05:45 21:08 POC Glucose 284 H 311 H 380 H 09/27/19 17:13 POC Glucose 307 H Hospitalist ROS - Medication Medications: Active Medications Generic Name Dose Route Start Last Admin Trade Name Freq PRN Reason Stop Dose Admin Acetaminophen 650 mg 09/07/19 22:24 09/14/19 20:06 Tylenol PO 650 mg Q4H PRN Administration Headache/Fever/Mild Pain (1-3) Hydrocodone Bitart/Acetaminophen 1 tab 09/19/19 18:31 09/24/19 08:46 [place] 5/325 PO 1 tab Q4H PRN Administration BREAKTHROUGH Cough Albuterol Sulfate 2 puff 09/15/19 06:30 09/28/19 14:07 Proventil Hfa INH 2 puff [id number] VANDANA Administration Amlodipine Besylate 10 mg 09/08/19 09:00 09/28/19 08:15 Norvasc PO 10 mg DAILY VANDANA Administration Apixaban 5 mg 09/22/19 09:00 09/28/19 08:16 Eliquis PO 5 mg BID VANDANA Administration Atorvastatin Calcium 10 mg 09/08/19 09:00 09/28/19 08:16 Lipitor PO 10 mg DAILY VANDANA Administration Benzonatate 100 mg 09/13/19 00:18 09/27/19 11:39 Tessalon PO 100 mg TIDPRN PRN Administration Cough Carvedilol 6.25 mg 09/08/19 09:00 09/28/19 08:16 Coreg PO 6.25 mg BID VANDANA Administration Chlorphenir/Hydrocodone Polistirex 10 ml 09/19/19 18:29 09/28/19 14:07 Tussionex PO 10 ml Q12H PRN Administration Cough Clonidine 0.1 mg 09/07/19 22:15 09/11/19 12:32 Catapres PO 0.1 mg BID PRN Administration SBP > 160 use second Famotidine 20 mg 09/08/19 09:00 09/28/19 08:16 Pepcid PO 20 mg BID VANDANA Administration Glipizide 5 mg 09/08/19 07:30 09/28/19 07:24 Glucotrol PO 5 mg BID-AC VANDANA Administration Guaifenesin 1,200 mg 09/19/19 21:00 09/28/19 08:16 Mucinex PO 1,200 mg Q12HR VANDANA Administration Cefazolin Sodium/Dextrose 2 gm 50 mls @ 100 mls/hr 09/26/19 18:00 09/28/19 10 :12 / Device IVPB 50 mls 0200,1000,1800 VANDANA Administration Insulin Human Regular 0 units 09/07/19 22:16 09/28/19 10:14 Humulin R SC 6 unit .MODERATE SLIDING SC PRN Administration Moderate Correctional Scale Methylprednisolone Sodium Succinate 40 mg 09/25/19 15:00 09/28/19 14:58 Solu-Medrol IVP 40 mg Q6H VANDANA Administration Ondansetron HCl 4 mg 09/07/19 22:15 09/21/19 10:14 Zofran IVP 4 mg Q6H PRN Administration Nausea/Vomiting use 1st Polyethylene Glycol 17 gm 09/08/19 09:00 09/28/19 08:17 Miralax PO 17 gm DAILY VANDANA Administration Sodium Chloride 10 ml 09/08/19 09:00 09/28/19 08:17 Flush - Normal Saline IVF 10 ml Q12HR VANDANA Administration Sterile Water 1 ml 09/15/19 12:46 09/26/19 20:57 Bacteriostatic Water FS 1 ml PRN PRN Administration RECONSTITUTION - Exam General Appearance: awake alert Eye: PERRL, anicteric sclera ENT: no oropharyngeal lesions, moist mucosa Neck: supple, no JVD Heart: RRR, no murmur Respiratory: no wheezes, no rales, rhonchi Gastrointestinal: soft, non-tender, non-distended, normal bowel sounds Extremities: no cyanosis, no edema Neurological: cranial nerve grossly intact, no focal deficits Psychiatric: normal affect, A&O x 3 Hosp A/P (1) Pneumonia due to COVID-19 virus Code(s): U07.1 - COVID-19; J12.89 - OTHER VIRAL PNEUMONIA Status: Acute (2) Acute respiratory failure with hypoxia Code(s): J96.01 - ACUTE RESPIRATORY FAILURE WITH HYPOXIA Status: Acute (3) MSSA bacteremia Code(s): R78.81 - BACTEREMIA; B95.61 - METHICILLIN SUSCEP STAPH INFCT CAUSING DIS CLASSD ELSWHR Status: Acute (4) Hypertension Code(s): I10 - ESSENTIAL (PRIMARY) HYPERTENSION Status: Chronic Qualifiers: Hypertension type: essential hypertension Qualified Code(s): I10 - Essential (primary) hypertension (5) Obstructive sleep apnea Code(s): G47.33 - OBSTRUCTIVE SLEEP APNEA (ADULT) (PEDIATRIC) Status: Chronic (6) Cholelithiasis Code(s): K80.20 - CALCULUS OF GALLBLADDER W/O CHOLECYSTITIS W/O OBSTRUCTION Status: Chronic Qualifiers: Cholelithiasis location: gallbladder Cholecystitis presence: without cholecystitis (7) Hyperlipidemia Code(s): E78.5 - HYPERLIPIDEMIA, UNSPECIFIED Status: Chronic (8) Morbid obesity Code(s): E66.01 - MORBID (SEVERE) OBESITY DUE TO EXCESS CALORIES Status: Chronic - Plan is on high flow oxygen, steroids, eliquis hemostable continue norvasc, coreg, glipizide and increased dose of lantus (10 bid on 09/26 increased to 20 bid 09/27) to ambulate as tolerated in the room has sob on min exertion in the room prognosis guarded
--- NOTE | 2019-09-28 17:30 | PRG ---
DATE OF SERVICE: 09/28/2019 SUBJECTIVE: Mr. Bonilla is still in the C11. He is awake, sitting by the bedside with his high-flow nasal cannula O2. Coughing intermittently, some productive sputum, kind of brownish. He denies any headaches. No dyspnea. No abdominal pain or diarrhea. Voiding without difficulty. OBJECTIVE: VITAL SIGNS: His temperature has been normal now for a while. BP 140/80, heart rate 57, respiratory rate 19, O2 saturations are 90, FiO2 is at 50, and he is still with a high-flow nasal cannula. The flow rates have been tapered over the past few days. LUNGS: Clear. HEART: S1 and S2, regular rate. ABDOMEN: Soft. Not distended. EXTREMITIES: He moves extremities equally. No edema. LABORATORY DATA: His white cell count is 8.9, hemoglobin 14.6, platelets 219, with 84% neutrophils. His D-dimer is down to 2.17. ALT 86. Albumin 3.3. He had a chest x-ray today and it showed diffuse alveolar infiltrates. ASSESSMENT: Severe COVID-19 pneumonia; Staph aureus bacteremia, probable thoracic spine infection. Hopefully, he is turning around, has been now in the hospital for almost three weeks and should not be infectious anymore. We will go ahead and hopefully get two negative COVID RNA PCR test, so we can get him out of isolation and let his family visit with him if possible. He is probably going to end up having to go home on O2 supplementation. He is going to need eventually a PICC line, I am not sure if he already has one, I do not think he has one yet inserted, and if we can, probably we will try to do an MRI. He probably has lost quite a bit of weight over the past 3 weeks. Should be able to have an MRI done to see if we can document this thoracic spine MSSA infection. Job ID: [id number]
--- NOTE | 2019-09-28 17:43 | PRG ---
DATE OF SERVICE: 09/28/2019 Mr. Bonilla' oxygen requirements are slowly improving. He still has significant desaturation with any movement. We are trying to turn up turning back down when he sits down. He is down to 50% FiO2 this morning. His electrolytes and CBC are unremarkable. Overall, he is clinically stable. His obesity in my opinion greatly affects his ability to recover from this. We will continue supportive care. Critical care time 30 min. Job ID: [id number] MTDD
[2019-09-28] MEDS: Nystatin Powder 15 GM BOT TOP PRN (17:59)
[2019-09-28] MEDS: Insulin Glargine 20 UNITS in Pre-Filled Syringe 1 EACH SC SCH (20:06)
[2019-09-29] MEDS: CEFAZOLIN 2 GM in Premix Bag 1 BAG IVPB SCH ×3 (01:42→17:44)
[2019-09-29] MEDS: methylPREDNISolone Sod Succ 40 MG VIAL IVP SCH ×4 (01:43→20:02)
[2019-09-29] MEDS: Albuterol 200 PUFF (6.7GM INHALER) INH SCH ×6 (01:44→21:34)
[2019-09-29] MEDS: HYDROcodone/Chlorphen Polis 5 ML UDCUP PO PRN ×2 (01:45→14:47)
[2019-09-29 04:52] LABS: Anion Gap 12 mmol/L (10-20); BUN (Urea Nitrogen) 13 mg/dL (8.9-20.6); Calc. Creatinine Clearance 334 mL/min (70-130); Calcium 8.8 mg/dL (7.8-10.44); Carbon Dioxide 26 mmol/L (22-29); Chloride 97 mmol/L (98-107); Estimated GFR-MDRD Greater than 90; Glucose 312 mg/dL (70-105); Potassium 4.7 mmol/L (3.5-5.1); Sodium 130 mmol/L (136-145)
[2019-09-29 05:21] LABS: #Lymphocytes 0.7 thou/uL (1.20-3.40); #Monocytes 0.3 thou/uL (0.11-0.59); #Neutrophils 6.8 thou/uL (1.40-6.50); %Basophils 0.1 % (0.0-1.0); %Eosinophils 0.1 % (0.0-10.0); %Lymphocytes 9.4 % (21.0-51.0); %Monocytes 3.8 % (0.0-10.0); %Neutrophils 86.5 % (42.0-75.0); Mean Corpuscular HGB CONC 35.9 g/dL (32.0-36.0); Mean Corpuscular Hemoglobin 32.5 pg (27.0-31.0); Mean Corpuscular Volume 90.4 fL (78.0-98.0); Mean Platelet Volume 7.8 fL (7.4-10.4); Platelet Count 199 thou/uL (130-400); RBC Distribution Width 12.3 % (11.5-14.5); Red Blood Cell (RBC) Count 4.62 mill/uL (4.70-6.10); White Blood Cell (WBC) Count 7.9 thou/uL (4.8-10.8)
[2019-09-29] MEDS: Insulin Regular 300 UNITS/3 ML VIAL SC PRN ×4 (05:49→20:20)
[2019-09-29] MEDS: guaiFENesin ER 600 MG TAB PO SCH ×2 (08:59→20:02)
[2019-09-29] MEDS: glipiZIDE 5 MG TAB PO SCH ×2 (08:59→16:24)
[2019-09-29] MEDS: Atorvastatin Calcium 10 MG TAB PO SCH (08:59)
[2019-09-29] MEDS: Amlodipine 10 MG TAB PO SCH (08:59)
[2019-09-29] MEDS: Famotidine 20 MG TAB PO SCH ×2 (09:00→20:02)
[2019-09-29] MEDS: Apixaban 5 MG TAB PO SCH ×2 (09:00→20:02)
[2019-09-29] MEDS: Insulin Glargine 20 UNITS in Pre-Filled Syringe 1 EACH SC SCH (09:00)
[2019-09-29] MEDS: Carvedilol 6.25 MG TAB PO SCH (09:00)
[2019-09-29] MEDS: Polyethylene Glycol 3350 17 GM Packet PO SCH (09:01)
--- NOTE | 2019-09-29 10:05 | RAD ---
PORTABLE CHEST: HISTORY: Pneumonia followup. CCU followup. COMPARISON: 09/28/2019. FINDINGS: Diffuse bilateral alveolar infiltrates are again noted. No definite change considering these differe nces in exposure. IMPRESSION: Extensive bilateral confluent infiltrates again noted. POS: AGW
[2019-09-29 11:20] LABS: SARS-CoV-2 MS2 Positive; SARS-CoV-2 N Gene Positive; SARS-CoV-2 S Gene Positive; SARS-CoV-2 orf1ab Positive
[2019-09-29] MEDS: Nystatin Powder 15 GM BOT TOP PRN (15:00)
[2019-09-29] MEDS ORDERED: Fluconazole 100 MG TAB PO SCH (16:15)
[2019-09-29] MEDS: Carvedilol 3.125 MG TAB PO SCH (16:30)
--- NOTE | 2019-09-29 16:55 | PRG ---
DATE OF SERVICE: 09/29/2019 SUBJECTIVE: Billy Bonilla is in no distress. OBJECTIVE: VITAL SIGNS: His heart rate is in the 50s to 60s, blood pressure is 138/75, and respiratory rates in the teens. His sats are in the high 90s. GENERAL: He really is starting to look more comfortable. LUNGS: Unchanged. HEART: Unchanged. ABDOMEN: Unchanged. LABORATORY DATA: White count 7.9, hemoglobin 15, and platelets 199. Electrolytes are unremarkable. Other than blood glucoses, I think we can stop doing daily lab on him. We will stop doing daily radiographs on him as well. I think he is approaching a point where we may be able to switch him to a nasal cannula this weekend. FiO2 is down fluctuating between 37% to 40%. I suspect the cannula will work this weekend. Critical care time 30 min. Job ID: [id number] MTDD
--- NOTE | 2019-09-29 19:26 | PDOC.HOSPP ---
- Subjective Encounter Date: 09/29/19 Encounter Time: 13:00 Subjective: Chart reviewed. Pt has been seen by performance consultant. Did not see patient to conserve PPE. - Objective Vital Signs & Weight: Vital Signs (12 hours) Temp Pulse BP Pulse Ox 09/29/19 16:00 97.0 F L 09/29/19 11:00 97.1 F L 09/29/19 09:00 134/84 09/29/19 08:59 85 134/84 09/29/19 08:00 96.9 F L 89 L 09/29/19 07:52 88 L Weight Admit Weight 352 lb Weight 352 lb Most Recent Monitor Data Heart Rate from ECG 58 NIBP 145/80 NIBP BP-Mean 101 Respiration from ECG 17 SpO2 93 I&O: 09/28/19 09/29/19 09/30/19 06:59 06:59 06:59 Intake Total 1651 2129 680 Output Total 2700 3640 9320 [facility]9266 -166 -2770 Result Diagrams: 09/29/19 04:12 09/29/19 04:12 Additional Labs: Accuchecks 09/29/19 09/29/19 09/29/19 16:39 11:14 05:34 POC Glucose 316 H 376 H 315 H 09/28/19 20:27 POC Glucose 366 H Labs and MARs reviewed by dc Hospitalist ROS - Medication Medications: Active Medications Generic Name Dose Route Start Last Admin Trade Name Freq PRN Reason Stop Dose Admin Acetaminophen 650 mg 09/07/19 22:24 09/14/19 20:06 Tylenol PO 650 mg Q4H PRN Administration Headache/Fever/Mild Pain (1-3) Albuterol Sulfate 2 puff 09/15/19 06:30 09/29/19 18:48 Proventil Hfa INH 2 puff [id number] VANDANA Administration Amlodipine Besylate 10 mg 09/08/19 09:00 09/29/19 08:59 Norvasc PO 10 mg DAILY VANDANA Administration Apixaban 5 mg 09/22/19 09:00 09/29/19 09:00 Eliquis PO 5 mg BID VANDANA Administration Atorvastatin Calcium 10 mg 09/08/19 09:00 09/29/19 08:59 Lipitor PO 10 mg DAILY VANDANA Administration Benzonatate 100 mg 09/13/19 00:18 09/27/19 11:39 Tessalon PO 100 mg TIDPRN PRN Administration Cough Carvedilol 3.125 mg 09/29/19 17:00 09/29/19 16:30 Coreg PO 3.125 mg BID-WM VANDANA Administration Chlorphenir/Hydrocodone Polistirex 10 ml 09/19/19 18:29 09/29/19 14:47 Tussionex PO 10 ml Q12H PRN Administration Cough Clonidine 0.1 mg 09/07/19 22:15 09/11/19 12:32 Catapres PO 0.1 mg BID PRN Administration SBP > 160 use second Famotidine 20 mg 09/08/19 09:00 09/29/19 09:00 Pepcid PO 20 mg BID VANDANA Administration Glipizide 5 mg 09/08/19 07:30 09/29/19 16:24 Glucotrol PO 5 mg BID-AC VANDANA Administration Guaifenesin 1,200 mg 09/19/19 21:00 09/29/19 08:59 Mucinex PO 1,200 mg Q12HR VANDANA Administration Cefazolin Sodium/Dextrose 2 gm 50 mls @ 100 mls/hr 09/26/19 18:00 09/29/19 17 :44 / Device IVPB 50 mls 0200,1000,1800 VANDANA Administration Insulin Glargine 20 units/ 0.2 mls @ 0 mls/hr 09/28/19 21:00 09/29/19 09:00 Miscellaneous Medication SC 0.2 mls BID VANDANA Administration Insulin Human Regular 0 units 09/07/19 22:16 09/29/19 16:30 Humulin R SC 8 unit .MODERATE SLIDING SC PRN Administration Moderate Correctional Scale Methylprednisolone Sodium Succinate 40 mg 09/25/19 15:00 09/29/19 15:28 Solu-Medrol IVP 40 mg Q6H VANDANA Administration Nystatin 0 gm 09/28/19 17:32 09/29/19 15:00 Mycostatin Powder TOP 1 applic PRN PRN Administration Rash/Topical Irritation Ondansetron HCl 4 mg 09/07/19 22:15 09/21/19 10:14 Zofran IVP 4 mg Q6H PRN Administration Nausea/Vomiting use 1st Sodium Chloride 10 ml 09/08/19 09:00 09/29/19 09:01 Flush - Normal Saline IVF 10 ml Q12HR VANDANA Administration Sterile Water 1 ml 09/15/19 12:46 09/26/19 20:57 Bacteriostatic Water FS 1 ml PRN PRN Administration RECONSTITUTION Hosp A/P - Plan - Assessment (1) Acute respiratory failure with hypoxia Code(s): J96.01 - ACUTE RESPIRATORY FAILURE WITH HYPOXIA Status: Acute 2) Pneumonia due to COVID-19 virus Code(s): U07.1 - COVID-19; J12.89 - OTHER VIRAL PNEUMONIA Status: Acute (3) MSSA bacteremia Code(s): R78.81 - BACTEREMIA; B95.61 - METHICILLIN SUSCEP STAPH INFCT CAUSING DIS CLASSD ELSWHR Status: Acute - Plan Decrease Coreg due to episodes of bradycardia. Repeat COVID testing positive (? virus particles). Stop Miralax. Blood sugars elevated, increase Lantus to 30 units BID.
[2019-09-29] MEDS: Insulin Glargine 30 UNITS in Pre-Filled Syringe SC SCH (20:09)
[2019-09-30] MEDS: CEFAZOLIN 2 GM in Premix Bag 1 BAG IVPB SCH ×3 (01:44→17:23)
[2019-09-30] MEDS: methylPREDNISolone Sod Succ 40 MG VIAL IVP SCH ×3 (01:44→20:01)
[2019-09-30] MEDS: HYDROcodone/Chlorphen Polis 5 ML UDCUP PO PRN (01:44)
[2019-09-30] MEDS: Albuterol 200 PUFF (6.7GM INHALER) INH SCH ×6 (03:15→22:20)
[2019-09-30] MEDS: Benzonatate 100 MG CAP PO PRN (05:32)
[2019-09-30] MEDS: Insulin Regular 300 UNITS/3 ML VIAL SC PRN ×3 (05:51→17:06)
[2019-09-30] MEDS: Atorvastatin Calcium 10 MG TAB PO SCH (07:55)
[2019-09-30] MEDS: Fluconazole 100 MG TAB PO SCH (07:56)
[2019-09-30] MEDS: Famotidine 20 MG TAB PO SCH ×2 (07:56→20:02)
[2019-09-30] MEDS: Amlodipine 10 MG TAB PO SCH (07:56)
[2019-09-30] MEDS: guaiFENesin ER 600 MG TAB PO SCH ×2 (07:56→20:02)
[2019-09-30] MEDS: Carvedilol 3.125 MG TAB PO SCH ×2 (07:57→16:48)
[2019-09-30] MEDS: glipiZIDE 5 MG TAB PO SCH ×2 (07:57→16:48)
[2019-09-30] MEDS: Insulin Glargine 30 UNITS in Pre-Filled Syringe SC SCH ×2 (08:37→21:32)
[2019-09-30] MEDS: Apixaban 5 MG TAB PO SCH ×2 (09:00→20:02)
--- NOTE | 2019-09-30 11:16 | PRG ---
DATE OF SERVICE: 09/30/2019 SUBJECTIVE: Billy Bonilla is a 43-year-old gentleman in the ICU, sitting on the side of the bed. No shortness of breath or cough. His blood sugar is 315. OBJECTIVE: VITAL SIGNS: Temperature 98, pulse high-flow, blood pressure 137/79, and respiratory rate 18. CHEST: No wheezing. No crackles. CARDIAC: Normal S1, S2. No gallops. ABDOMEN: No masses. ASSESSMENT AND PLAN: Coronavirus pneumonia, acute respiratory distress syndrome. Decrease steroids to twice a day. Hopefully that will improve his blood sugar. Otherwise, supportive care. Hopefully, we can start weaning his oxygen. We will follow while in the ICU. Job ID: [id number]
--- NOTE | 2019-09-30 13:27 | PDOC.HOSPP ---
- Subjective Encounter Date: 09/30/19 Encounter Time: 13:00 Subjective: is sitting in chair has sob on minimal exertion is eating well - Objective Vital Signs & Weight: Vital Signs (12 hours) Temp Pulse BP Pulse Ox 09/30/19 12:00 98.0 F 09/30/19 08:00 98.4 F 94 L 09/30/19 07:56 53 L 134/84 09/30/19 04:00 96.4 F L Weight Admit Weight 352 lb Weight 352 lb Most Recent Monitor Data Heart Rate from ECG 70 NIBP 123/73 NIBP BP-Mean 89 Respiration from ECG 18 SpO2 92 I&O: 09/29/19 09/30/19 10/01/19 06:59 06:59 06:59 Intake Total 2129 1438 730 Output Total 0630 1880 630 Balance - 100 Result Diagrams: 09/29/19 04:12 09/29/19 04:12 Additional Labs: Accuchecks 09/30/19 09/30/19 09/29/19 10:41 05:43 20:16 POC Glucose 363 H 315 H 362 H 09/29/19 16:39 POC Glucose 316 H Hospitalist ROS - Medication Medications: Active Medications Generic Name Dose Route Start Last Admin Trade Name Freq PRN Reason Stop Dose Admin Acetaminophen 650 mg 09/07/19 22:24 09/14/19 20:06 Tylenol PO 650 mg Q4H PRN Administration Headache/Fever/Mild Pain (1-3) Albuterol Sulfate 2 puff 09/15/19 06:30 09/30/19 11:08 Proventil Hfa INH 2 puff [id number] VANDANA Administration Amlodipine Besylate 10 mg 09/08/19 09:00 09/30/19 07:56 Norvasc PO 10 mg DAILY VANDANA Administration Apixaban 5 mg 09/22/19 09:00 09/30/19 09:00 Eliquis PO 5 mg BID VANDANA Administration Atorvastatin Calcium 10 mg 09/08/19 09:00 09/30/19 07:55 Lipitor PO 10 mg DAILY VANDANA Administration Benzonatate 100 mg 09/13/19 00:18 09/30/19 05:32 Tessalon PO 100 mg TIDPRN PRN Administration Cough Bisacodyl 10 mg 09/07/19 22:24 09/30/19 11:05 Dulcolax PO 10 mg DAILYPRN PRN Administration Constipation Carvedilol 3.125 mg 09/29/19 17:00 09/30/19 07:57 Coreg PO 3.125 mg BID-WM VANDANA Administration Chlorphenir/Hydrocodone Polistirex 10 ml 09/19/19 18:29 09/30/19 01:44 Tussionex PO 10 ml Q12H PRN Administration Cough Clonidine 0.1 mg 09/07/19 22:15 09/11/19 12:32 Catapres PO 0.1 mg BID PRN Administration SBP > 160 use second Famotidine 20 mg 09/08/19 09:00 09/30/19 07:56 Pepcid PO 20 mg BID VANDANA Administration Fluconazole 100 mg 09/30/19 09:00 09/30/19 07:56 Diflucan PO 100 mg DAILY VANDANA Administration Glipizide 5 mg 09/08/19 07:30 09/30/19 07:57 Glucotrol PO 5 mg BID-AC VANDANA Administration Guaifenesin 1,200 mg 09/19/19 21:00 09/30/19 07:56 Mucinex PO 1,200 mg Q12HR VANDANA Administration Cefazolin Sodium/Dextrose 2 gm 50 mls @ 100 mls/hr 09/26/19 18:00 09/30/19 10 :30 / Device IVPB 50 mls 0200,1000,1800 VANDANA Administration Insulin Glargine 30 units/ 0.3 mls @ 0 mls/hr 09/29/19 21:00 09/30/19 08:37 Miscellaneous Medication SC 0.3 mls BID VANDANA Administration Insulin Human Regular 0 units 09/07/19 22:16 09/30/19 10:38 Humulin R SC 10 unit .MODERATE SLIDING SC PRN Administration Moderate Correctional Scale Nystatin 0 gm 09/28/19 17:32 09/29/19 15:00 Mycostatin Powder TOP 1 applic PRN PRN Administration Rash/Topical Irritation Ondansetron HCl 4 mg 09/07/19 22:15 09/21/19 10:14 Zofran IVP 4 mg Q6H PRN Administration Nausea/Vomiting use 1st Sodium Chloride 10 ml 09/08/19 09:00 09/30/19 11:07 Flush - Normal Saline IVF 10 ml Q12HR VANDANA Administration Sterile Water 1 ml 09/15/19 12:46 09/26/19 20:57 Bacteriostatic Water FS 1 ml PRN PRN Administration RECONSTITUTION - Exam General Appearance: awake alert Eye: PERRL, anicteric sclera ENT: no oropharyngeal lesions, moist mucosa Neck: supple, no JVD Heart: RRR, no murmur Respiratory: no wheezes, rales, rhonchi Gastrointestinal: soft, non-tender, non-distended, normal bowel sounds Extremities: no cyanosis, no edema Neurological: cranial nerve grossly intact, no focal deficits Psychiatric: A&O x 3 Hosp A/P (1) Pneumonia due to COVID-19 virus Code(s): U07.1 - COVID-19; J12.89 - OTHER VIRAL PNEUMONIA Status: Acute (2) Acute respiratory failure with hypoxia Code(s): J96.01 - ACUTE RESPIRATORY FAILURE WITH HYPOXIA Status: Acute (3) MSSA bacteremia Code(s): R78.81 - BACTEREMIA; B95.61 - METHICILLIN SUSCEP STAPH INFCT CAUSING DIS CLASSD ELSWHR Status: Acute (4) Hypertension Code(s): I10 - ESSENTIAL (PRIMARY) HYPERTENSION Status: Chronic Qualifiers: Hypertension type: essential hypertension Qualified Code(s): I10 - Essential (primary) hypertension (5) Obstructive sleep apnea Code(s): G47.33 - OBSTRUCTIVE SLEEP APNEA (ADULT) (PEDIATRIC) Status: Chronic (6) Cholelithiasis Code(s): K80.20 - CALCULUS OF GALLBLADDER W/O CHOLECYSTITIS W/O OBSTRUCTION Status: Chronic Qualifiers: Cholelithiasis location: gallbladder Cholecystitis presence: without cholecystitis (7) Hyperlipidemia Code(s): E78.5 - HYPERLIPIDEMIA, UNSPECIFIED Status: Chronic (8) Morbid obesity Code(s): E66.01 - MORBID (SEVERE) OBESITY DUE TO EXCESS CALORIES Status: Chronic - Plan is on high flow oxygen, steroids, eliquis hemostable continue norvasc, coreg, glipizide and increased dose of lantus at 30u bid to ambulate as tolerated in the room has sob on min exertion in the room prognosis guarded
[2019-09-30] MEDS: Nystatin Powder 15 GM BOT TOP PRN (17:39)
[2019-09-30] MEDS: Doxycycline 100 MG CAP PO SCH (20:02)
[2019-10-01] MEDS: CEFAZOLIN 2 GM in Premix Bag 1 BAG IVPB SCH ×3 (01:46→18:54)
[2019-10-01] MEDS: HYDROcodone/Chlorphen Polis 5 ML UDCUP PO PRN (01:50)
[2019-10-01] MEDS: Albuterol 200 PUFF (6.7GM INHALER) INH SCH ×6 (02:48→22:25)
[2019-10-01] MEDS: Insulin Regular 300 UNITS/3 ML VIAL SC PRN ×3 (06:43→18:55)
[2019-10-01] MEDS: glipiZIDE 5 MG TAB PO SCH ×2 (07:44→18:53)
[2019-10-01] MEDS: Carvedilol 3.125 MG TAB PO SCH ×2 (07:44→18:53)
[2019-10-01] MEDS: Famotidine 20 MG TAB PO SCH ×2 (09:18→21:28)
[2019-10-01] MEDS: Fluconazole 100 MG TAB PO SCH (09:18)
[2019-10-01] MEDS: guaiFENesin ER 600 MG TAB PO SCH ×2 (09:18→21:28)
[2019-10-01] MEDS: Amlodipine 10 MG TAB PO SCH (09:18)
[2019-10-01] MEDS: Atorvastatin Calcium 10 MG TAB PO SCH (09:18)
[2019-10-01] MEDS: Doxycycline 100 MG CAP PO SCH ×2 (09:19→21:28)
[2019-10-01] MEDS: Apixaban 5 MG TAB PO SCH ×2 (09:19→21:28)
[2019-10-01] MEDS: Bacteriostatic Water 30 ML VIAL FS PRN (09:20)
[2019-10-01] MEDS: methylPREDNISolone Sod Succ 40 MG VIAL IVP SCH ×2 (09:20→21:27)
[2019-10-01] MEDS: Insulin Glargine 30 UNITS in Pre-Filled Syringe SC SCH ×2 (09:24→21:27)
--- NOTE | 2019-10-01 11:43 | PRG ---
DATE OF SERVICE: 10/01/2019 SUBJECTIVE: Billy Bonilla is sitting on the side of the republican this morning without any distress, still on high-flow. OBJECTIVE: VITAL SIGNS: Pulse 53; blood pressure 120/73; saturations 100%, apparently they were decreased; respirations 18. GENERAL: Denies any pain or discomfort. CHEST: No wheezing or crackles. CARDIAC: Normal S1 and S2. No gallops. ABDOMEN: No masses. ASSESSMENT: Coronavirus positive, respiratory failure, pneumonia, morbid obesity, acute respiratory distress syndrome. PLAN: Continue steroids. Continue supportive care. Empiric antibiotics. Start doxycycline. Job ID: [id number]
--- NOTE | 2019-10-01 12:16 | PDOC.HOSPP ---
- Subjective Encounter Date: 10/01/19 Encounter Time: 11:40 Subjective: is sitting in chair, not in distress, is on high flow watching his cell phone video - Objective Vital Signs & Weight: Vital Signs (12 hours) Temp Pulse BP Pulse Ox 10/01/19 09:18 53 L 134/84 10/01/19 08:00 98.7 F 94 L 10/01/19 04:00 98.2 F Weight Admit Weight 352 lb Weight 352 lb Most Recent Monitor Data Heart Rate from ECG 55 NIBP 135/76 NIBP BP-Mean 95 Respiration from ECG 15 SpO2 100 I&O: 09/30/19 10/01/19 10/02/19 06:59 06:59 06:59 Intake Total 1438 2070 210 Output Total 8490 3255 450 Balance -2022 -1185 -240 Result Diagrams: 09/29/19 04:12 09/29/19 04:12 Additional Labs: Accuchecks 10/01/19 10/01/19 09/30/19 11:37 06:04 21:10 POC Glucose 242 H 249 H 304 H 09/30/19 17:02 POC Glucose 311 H Hospitalist ROS - Medication Medications: Active Medications Generic Name Dose Route Start Last Admin Trade Name Freq PRN Reason Stop Dose Admin Acetaminophen 650 mg 09/07/19 22:24 09/14/19 20:06 Tylenol PO 650 mg Q4H PRN Administration Headache/Fever/Mild Pain (1-3) Albuterol Sulfate 2 puff 09/15/19 06:30 10/01/19 06:20 Proventil Hfa INH 2 puff [id number] VANDANA Administration Amlodipine Besylate 10 mg 09/08/19 09:00 10/01/19 09:18 Norvasc PO 10 mg DAILY VANDANA Administration Apixaban 5 mg 09/22/19 09:00 10/01/19 09:19 Eliquis PO 5 mg BID VANDANA Administration Atorvastatin Calcium 10 mg 09/08/19 09:00 10/01/19 09:18 Lipitor PO 10 mg DAILY VANDANA Administration Benzonatate 100 mg 09/13/19 00:18 09/30/19 05:32 Tessalon PO 100 mg TIDPRN PRN Administration Cough Bisacodyl 10 mg 09/07/19 22:24 09/30/19 11:05 Dulcolax PO 10 mg DAILYPRN PRN Administration Constipation Carvedilol 3.125 mg 09/29/19 17:00 10/01/19 07:44 Coreg PO 3.125 mg BID-WM VANDANA Administration Chlorphenir/Hydrocodone Polistirex 10 ml 09/19/19 18:29 10/01/19 01:50 Tussionex PO 10 ml Q12H PRN Administration Cough Clonidine 0.1 mg 09/07/19 22:15 09/11/19 12:32 Catapres PO 0.1 mg BID PRN Administration SBP > 160 use second Doxycycline Hyclate 100 mg 09/30/19 21:00 10/01/19 09:19 Vibramycin PO 10/07/19 21:01 100 mg BID VANDANA Administration Famotidine 20 mg 09/08/19 09:00 10/01/19 09:18 Pepcid PO 20 mg BID VANDANA Administration Fluconazole 100 mg 09/30/19 09:00 10/01/19 09:18 Diflucan PO 100 mg DAILY VANDANA Administration Glipizide 5 mg 09/08/19 07:30 10/01/19 07:44 Glucotrol PO 5 mg BID-AC VANDANA Administration Guaifenesin 1,200 mg 09/19/19 21:00 10/01/19 09:18 Mucinex PO 1,200 mg Q12HR VANDANA Administration Cefazolin Sodium/Dextrose 2 gm 50 mls @ 100 mls/hr 09/26/19 18:00 10/01/19 09 :23 / Device IVPB 50 mls 0200,1000,1800 VANDANA Administration Insulin Glargine 30 units/ 0.3 mls @ 0 mls/hr 09/29/19 21:00 10/01/19 09:24 Miscellaneous Medication SC 0.3 mls BID VANDANA Administration Insulin Human Regular 0 units 09/07/19 22:16 10/01/19 11:42 Humulin R SC 4 unit .MODERATE SLIDING SC PRN Administration Moderate Correctional Scale Methylprednisolone Sodium Succinate 40 mg 09/30/19 21:00 10/01/19 09:20 Solu-Medrol IVP 40 mg BID VANDANA Administration Nystatin 0 gm 09/28/19 17:32 09/30/19 17:39 Mycostatin Powder TOP 1 applic PRN PRN Administration Rash/Topical Irritation Ondansetron HCl 4 mg 09/07/19 22:15 09/21/19 10:14 Zofran IVP 4 mg Q6H PRN Administration Nausea/Vomiting use 1st Sodium Chloride 10 ml 09/08/19 09:00 10/01/19 09:23 Flush - Normal Saline IVF 10 ml Q12HR VANDANA Administration Sterile Water 1 ml 09/15/19 12:46 10/01/19 09:20 Bacteriostatic Water FS 1 ml PRN PRN Administration RECONSTITUTION - Exam General Appearance: awake alert Eye: PERRL, anicteric sclera ENT: no oropharyngeal lesions, moist mucosa Neck: supple, no JVD Heart: RRR, no murmur Respiratory: no wheezes, no tachypnea Gastrointestinal: soft, non-distended, normal bowel sounds Extremities: no cyanosis, no edema Neurological: cranial nerve grossly intact, no focal deficits Psychiatric: A&O x 3 Hosp A/P (1) Pneumonia due to COVID-19 virus Code(s): U07.1 - COVID-19; J12.89 - OTHER VIRAL PNEUMONIA Status: Acute (2) Acute respiratory failure with hypoxia Code(s): J96.01 - ACUTE RESPIRATORY FAILURE WITH HYPOXIA Status: Acute (3) MSSA bacteremia Code(s): R78.81 - BACTEREMIA; B95.61 - METHICILLIN SUSCEP STAPH INFCT CAUSING DIS CLASSD ELSWHR Status: Acute (4) Hypertension Code(s): I10 - ESSENTIAL (PRIMARY) HYPERTENSION Status: Chronic Qualifiers: Hypertension type: essential hypertension Qualified Code(s): I10 - Essential (primary) hypertension (5) Obstructive sleep apnea Code(s): G47.33 - OBSTRUCTIVE SLEEP APNEA (ADULT) (PEDIATRIC) Status: Chronic (6) Cholelithiasis Code(s): K80.20 - CALCULUS OF GALLBLADDER W/O CHOLECYSTITIS W/O OBSTRUCTION Status: Chronic Qualifiers: Cholelithiasis location: gallbladder Cholecystitis presence: without cholecystitis (7) Hyperlipidemia Code(s): E78.5 - HYPERLIPIDEMIA, UNSPECIFIED Status: Chronic (8) Morbid obesity Code(s): E66.01 - MORBID (SEVERE) OBESITY DUE TO EXCESS CALORIES Status: Chronic - Plan is on high flow oxygen, steroids, eliquis hemostable continue norvasc, coreg, glipizide and increased dose of lantus at 30u bid to ambulate as tolerated in the room has sob on min exertion in the room dm is still uncontrolled, is on tapering steroids prognosis guarded
[2019-10-02] MEDS: CEFAZOLIN 2 GM in Premix Bag 1 BAG IVPB SCH ×3 (02:20→18:12)
[2019-10-02] MEDS: Albuterol 200 PUFF (6.7GM INHALER) INH SCH ×6 (02:20→21:45)
[2019-10-02] MEDS: HYDROcodone/Chlorphen Polis 5 ML UDCUP PO PRN (02:55)
[2019-10-02] MEDS: glipiZIDE 5 MG TAB PO SCH ×2 (07:33→15:44)
[2019-10-02] MEDS: Carvedilol 3.125 MG TAB PO SCH ×2 (07:33→15:45)
[2019-10-02] MEDS: Atorvastatin Calcium 10 MG TAB PO SCH (08:27)
[2019-10-02] MEDS: Doxycycline 100 MG CAP PO SCH ×2 (08:27→21:26)
[2019-10-02] MEDS: methylPREDNISolone Sod Succ 40 MG VIAL IVP SCH ×2 (08:27→21:26)
[2019-10-02] MEDS: guaiFENesin ER 600 MG TAB PO SCH ×2 (08:27→21:26)
[2019-10-02] MEDS: Apixaban 5 MG TAB PO SCH ×2 (08:27→21:26)
[2019-10-02] MEDS: Amlodipine 10 MG TAB PO SCH (08:27)
[2019-10-02] MEDS: Fluconazole 100 MG TAB PO SCH (08:27)
[2019-10-02] MEDS: Insulin Glargine 30 UNITS in Pre-Filled Syringe SC SCH ×2 (08:28→23:28)
[2019-10-02] MEDS: Famotidine 20 MG TAB PO SCH ×2 (08:28→21:26)
[2019-10-02] MEDS: metFORMIN 500 MG TAB PO SCH ×3 (08:35→21:26)
[2019-10-02] MEDS: Insulin Regular 300 UNITS/3 ML VIAL SC PRN ×3 (11:42→21:50)
--- NOTE | 2019-10-02 15:59 | PDOC.HOSPP ---
- Subjective Encounter Date: 10/02/19 Encounter Time: 13:15 Subjective: sitting in chair, is on nasal canula now - Objective Vital Signs & Weight: Vital Signs (12 hours) Temp Pulse BP Pulse Ox 10/02/19 12:00 98.0 F 10/02/19 08:27 53 L 134/84 10/02/19 08:00 97.9 F 95 10/02/19 04:00 98.1 F Weight Admit Weight 352 lb Weight 352 lb Most Recent Monitor Data Heart Rate from ECG 94 NIBP 128/80 NIBP BP-Mean 96 Respiration from ECG 22 SpO2 89 I&O: 10/01/19 10/02/19 10/03/19 06:59 06:59 06:59 Intake Total 2070 1290 580 Output Total 8709 2820 550 Balance -2265 -6860 30 Result Diagrams: 09/29/19 04:12 09/29/19 04:12 Additional Labs: Accuchecks 10/02/19 10/02/19 10/01/19 11:45 05:42 21:41 POC Glucose 238 H 229 H 269 H 10/01/19 17:12 POC Glucose 271 H Hospitalist ROS - Medication Medications: Active Medications Generic Name Dose Route Start Last Admin Trade Name Freq PRN Reason Stop Dose Admin Acetaminophen 650 mg 09/07/19 22:24 09/14/19 20:06 Tylenol PO 650 mg Q4H PRN Administration Headache/Fever/Mild Pain (1-3) Albuterol Sulfate 2 puff 09/15/19 06:30 10/02/19 14:30 Proventil Hfa INH 2 puff [id number] VANDANA Administration Amlodipine Besylate 10 mg 09/08/19 09:00 10/02/19 08:27 Norvasc PO 10 mg DAILY VANDANA Administration Apixaban 5 mg 09/22/19 09:00 10/02/19 08:27 Eliquis PO 5 mg BID VANDANA Administration Atorvastatin Calcium 10 mg 09/08/19 09:00 10/02/19 08:27 Lipitor PO 10 mg DAILY VANDANA Administration Benzonatate 100 mg 09/13/19 00:18 09/30/19 05:32 Tessalon PO 100 mg TIDPRN PRN Administration Cough Bisacodyl 10 mg 09/07/19 22:24 09/30/19 11:05 Dulcolax PO 10 mg DAILYPRN PRN Administration Constipation Carvedilol 3.125 mg 09/29/19 17:00 10/02/19 15:45 Coreg PO 3.125 mg BID-WM VANDANA Administration Chlorphenir/Hydrocodone Polistirex 10 ml 09/19/19 18:29 10/02/19 02:55 Tussionex PO 10 ml Q12H PRN Administration Cough Clonidine 0.1 mg 09/07/19 22:15 09/11/19 12:32 Catapres PO 0.1 mg BID PRN Administration SBP > 160 use second Doxycycline Hyclate 100 mg 09/30/19 21:00 10/02/19 08:27 Vibramycin PO 10/07/19 21:01 100 mg BID VANDANA Administration Famotidine 20 mg 09/08/19 09:00 10/02/19 08:28 Pepcid PO 20 mg BID VANDANA Administration Fluconazole 100 mg 09/30/19 09:00 10/02/19 08:27 Diflucan PO 100 mg DAILY VANDANA Administration Glipizide 5 mg 09/08/19 07:30 10/02/19 15:44 Glucotrol PO 5 mg BID-AC VANDANA Administration Guaifenesin 1,200 mg 09/19/19 21:00 10/02/19 08:27 Mucinex PO 1,200 mg Q12HR VANDANA Administration Cefazolin Sodium/Dextrose 2 gm 50 mls @ 100 mls/hr 09/26/19 18:00 10/02/19 08 :52 / Device IVPB 50 mls 0200,1000,1800 VANDANA Administration Insulin Glargine 30 units/ 0.3 mls @ 0 mls/hr 09/29/19 21:00 10/02/19 08:28 Miscellaneous Medication SC 0.3 mls BID VANDANA Administration Insulin Human Regular 0 units 09/07/19 22:16 10/02/19 11:42 Humulin R SC 4 unit .MODERATE SLIDING SC PRN Administration Moderate Correctional Scale Metformin HCl 500 mg 10/02/19 09:00 10/02/19 15:44 Glucophage PO 500 mg TID VANDANA Administration Methylprednisolone Sodium Succinate 40 mg 09/30/19 21:00 10/02/19 08:27 Solu-Medrol IVP 40 mg BID VANDANA Administration Nystatin 0 gm 09/28/19 17:32 09/30/19 17:39 Mycostatin Powder TOP 1 applic PRN PRN Administration Rash/Topical Irritation Ondansetron HCl 4 mg 09/07/19 22:15 09/21/19 10:14 Zofran IVP 4 mg Q6H PRN Administration Nausea/Vomiting use 1st Sodium Chloride 10 ml 09/08/19 09:00 10/02/19 10:00 Flush - Normal Saline IVF 10 ml Q12HR VANDANA Administration Sterile Water 1 ml 09/15/19 12:46 10/01/19 09:20 Bacteriostatic Water FS 1 ml PRN PRN Administration RECONSTITUTION - Exam General Appearance: awake alert Eye: PERRL, anicteric sclera ENT: no oropharyngeal lesions, moist mucosa Neck: supple, no JVD Heart: RRR Respiratory: rales, rhonchi Gastrointestinal: soft, non-distended, normal bowel sounds Extremities: no cyanosis, no edema Neurological: cranial nerve grossly intact, no focal deficits Hosp A/P (1) Pneumonia due to COVID-19 virus Code(s): U07.1 - COVID-19; J12.89 - OTHER VIRAL PNEUMONIA Status: Acute (2) Acute respiratory failure with hypoxia Code(s): J96.01 - ACUTE RESPIRATORY FAILURE WITH HYPOXIA Status: Acute (3) MSSA bacteremia Code(s): R78.81 - BACTEREMIA; B95.61 - METHICILLIN SUSCEP STAPH INFCT CAUSING DIS CLASSD ELSWHR Status: Acute (4) Hypertension Code(s): I10 - ESSENTIAL (PRIMARY) HYPERTENSION Status: Chronic Qualifiers: Hypertension type: essential hypertension Qualified Code(s): I10 - Essential (primary) hypertension (5) Obstructive sleep apnea Code(s): G47.33 - OBSTRUCTIVE SLEEP APNEA (ADULT) (PEDIATRIC) Status: Chronic (6) Cholelithiasis Code(s): K80.20 - CALCULUS OF GALLBLADDER W/O CHOLECYSTITIS W/O OBSTRUCTION Status: Chronic Qualifiers: Cholelithiasis location: gallbladder Cholecystitis presence: without cholecystitis (7) Hyperlipidemia Code(s): E78.5 - HYPERLIPIDEMIA, UNSPECIFIED Status: Chronic (8) Morbid obesity Code(s): E66.01 - MORBID (SEVERE) OBESITY DUE TO EXCESS CALORIES Status: Chronic - Plan is on nasal canula oxygen, steroids, eliquis hemostable continue norvasc, coreg, glipizide, lantus at 30u bid and add metformin tid. to ambulate as tolerated in the room has sob on min exertion in the room dm is still uncontrolled, is on tapering steroids prognosis guarded
--- NOTE | 2019-10-02 21:00 | PRG ---
DATE OF SERVICE: 10/02/2019 SUBJECTIVE: Mr. Bonilla is in no distress. OBJECTIVE: VITAL SIGNS: He is afebrile, heart rate 70, respiratory rate is 18, oximetry is 98% on 4 L, blood pressure 128/83. LUNGS: Clear. HEART: Regular rhythm. ABDOMEN: Soft. IMPRESSION: COVID-19 pneumonia. I believe Mr. Bonilla is finally turning the corner. It might not be unreasonable to send him home with oxygen for a while. He does significantly desaturate with exercise and movement, however, so would probably be a few days before I would consider that. He is stable to move out of Critical Care to a medical bed. Job ID: [id number]
[2019-10-03] MEDS: Albuterol 200 PUFF (6.7GM INHALER) INH SCH ×6 (02:36→23:05)
[2019-10-03] MEDS: CEFAZOLIN 2 GM in Premix Bag 1 BAG IVPB SCH ×3 (02:36→17:39)
[2019-10-03] MEDS: Apixaban 5 MG TAB PO SCH ×2 (08:36→20:05)
[2019-10-03] MEDS: Fluconazole 100 MG TAB PO SCH (08:36)
[2019-10-03] MEDS: Famotidine 20 MG TAB PO SCH ×2 (08:36→20:05)
[2019-10-03] MEDS: methylPREDNISolone Sod Succ 40 MG VIAL IVP SCH ×2 (08:36→20:06)
[2019-10-03] MEDS: Amlodipine 10 MG TAB PO SCH (08:36)
[2019-10-03] MEDS: glipiZIDE 5 MG TAB PO SCH ×2 (08:36→17:40)
[2019-10-03] MEDS: Carvedilol 3.125 MG TAB PO SCH ×2 (08:36→17:40)
[2019-10-03] MEDS: metFORMIN 500 MG TAB PO SCH ×3 (08:37→20:06)
[2019-10-03] MEDS: Atorvastatin Calcium 10 MG TAB PO SCH (08:37)
[2019-10-03] MEDS: Doxycycline 100 MG CAP PO SCH ×2 (08:37→20:06)
[2019-10-03] MEDS: guaiFENesin ER 600 MG TAB PO SCH ×2 (08:37→20:06)
[2019-10-03] MEDS: Insulin Glargine 30 UNITS in Pre-Filled Syringe SC SCH ×2 (08:37→20:04)
--- NOTE | 2019-10-03 12:21 | PDOC.HOSPP ---
- Subjective Encounter Date: 10/03/19 Encounter Time: 11:00 Subjective: feels better has ambulated a bit inside his room today likely has hemorrhoids due to prolonged sitting in the chair - Objective Vital Signs & Weight: Vital Signs (12 hours) Temp Pulse Resp BP BP Pulse Ox 10/03/19 08:45 98.2 F 87 24 H 150/94 H 92 L 10/03/19 08:36 79 10/03/19 03:44 97.6 F 79 18 126/75 91 L Weight Admit Weight 352 lb Weight 351 lb 4.8 oz Most Recent Monitor Data Heart Rate from ECG 61 NIBP 129/81 NIBP BP-Mean 97 Respiration from ECG 19 SpO2 95 I&O: 10/02/19 10/03/19 10/04/19 06:59 06:59 06:59 Intake Total 1290 1980 360 Output Total 2820 1620 Balance -1530 360 360 Result Diagrams: 09/29/19 04:12 09/29/19 04:12 Additional Labs: Accuchecks 10/03/19 10/02/19 10/02/19 05:44 21:41 16:39 POC Glucose 163 H 253 H 295 H Hospitalist ROS - Medication Medications: Active Medications Generic Name Dose Route Start Last Admin Trade Name Freq PRN Reason Stop Dose Admin Acetaminophen 650 mg 09/07/19 22:24 09/14/19 20:06 Tylenol PO 650 mg Q4H PRN Administration Headache/Fever/Mild Pain (1-3) Albuterol Sulfate 2 puff 09/15/19 06:30 10/03/19 08:38 Proventil Hfa INH 2 puff [id number] VANDANA Administration Amlodipine Besylate 10 mg 09/08/19 09:00 10/03/19 08:36 Norvasc PO 10 mg DAILY VANDANA Administration Apixaban 5 mg 09/22/19 09:00 10/03/19 08:36 Eliquis PO 5 mg BID VANDANA Administration Atorvastatin Calcium 10 mg 09/08/19 09:00 10/03/19 08:37 Lipitor PO 10 mg DAILY VANDANA Administration Benzonatate 100 mg 09/13/19 00:18 09/30/19 05:32 Tessalon PO 100 mg TIDPRN PRN Administration Cough Bisacodyl 10 mg 09/07/19 22:24 09/30/19 11:05 Dulcolax PO 10 mg DAILYPRN PRN Administration Constipation Carvedilol 3.125 mg 09/29/19 17:00 10/03/19 08:36 Coreg PO 3.125 mg BID-WM VANDANA Administration Chlorphenir/Hydrocodone Polistirex 10 ml 09/19/19 18:29 10/02/19 02:55 Tussionex PO 10 ml Q12H PRN Administration Cough Clonidine 0.1 mg 09/07/19 22:15 09/11/19 12:32 Catapres PO 0.1 mg BID PRN Administration SBP > 160 use second Doxycycline Hyclate 100 mg 09/30/19 21:00 10/03/19 08:37 Vibramycin PO 10/07/19 21:01 100 mg BID VANDANA Administration Famotidine 20 mg 09/08/19 09:00 10/03/19 08:36 Pepcid PO 20 mg BID VANDANA Administration Fluconazole 100 mg 09/30/19 09:00 10/03/19 08:36 Diflucan PO 100 mg DAILY VANDANA Administration Glipizide 5 mg 09/08/19 07:30 10/03/19 08:36 Glucotrol PO 5 mg BID-AC VANDANA Administration Guaifenesin 1,200 mg 09/19/19 21:00 10/03/19 08:37 Mucinex PO 1,200 mg Q12HR VANDANA Administration Cefazolin Sodium/Dextrose 2 gm 50 mls @ 100 mls/hr 09/26/19 18:00 10/03/19 08 :38 / Device IVPB 50 mls 0200,1000,1800 VANDANA Administration Insulin Glargine 30 units/ 0.3 mls @ 0 mls/hr 09/29/19 21:00 10/03/19 08:37 Miscellaneous Medication SC 0.3 mls BID VANDANA Administration Insulin Human Regular 0 units 09/07/19 22:16 10/02/19 21:50 Humulin R SC 6 unit .MODERATE SLIDING SC PRN Administration Moderate Correctional Scale Metformin HCl 500 mg 10/02/19 09:00 10/03/19 08:37 Glucophage PO 500 mg TID VANDANA Administration Methylprednisolone Sodium Succinate 40 mg 09/30/19 21:00 10/03/19 08:36 Solu-Medrol IVP 40 mg BID VANDANA Administration Nystatin 0 gm 09/28/19 17:32 09/30/19 17:39 Mycostatin Powder TOP 1 applic PRN PRN Administration Rash/Topical Irritation Ondansetron HCl 4 mg 09/07/19 22:15 09/21/19 10:14 Zofran IVP 4 mg Q6H PRN Administration Nausea/Vomiting use 1st Sodium Chloride 10 ml 09/08/19 09:00 10/03/19 08:37 Flush - Normal Saline IVF 10 ml Q12HR VANDANA Administration Sterile Water 1 ml 09/15/19 12:46 10/01/19 09:20 Bacteriostatic Water FS 1 ml PRN PRN Administration RECONSTITUTION - Exam General Appearance: awake alert Eye: PERRL, anicteric sclera ENT: no oropharyngeal lesions, moist mucosa Neck: supple, no JVD Heart: RRR, no murmur Respiratory: no wheezes, rales, rhonchi Gastrointestinal: soft, non-tender, non-distended, normal bowel sounds Extremities: no cyanosis, no edema Neurological: cranial nerve grossly intact, no focal deficits Psychiatric: normal affect, A&O x 3 Hosp A/P (1) Pneumonia due to COVID-19 virus Code(s): U07.1 - COVID-19; J12.89 - OTHER VIRAL PNEUMONIA Status: Acute (2) Acute respiratory failure with hypoxia Code(s): J96.01 - ACUTE RESPIRATORY FAILURE WITH HYPOXIA Status: Acute (3) MSSA bacteremia Code(s): R78.81 - BACTEREMIA; B95.61 - METHICILLIN SUSCEP STAPH INFCT CAUSING DIS CLASSD ELSWHR Status: Acute (4) Hypertension Code(s): I10 - ESSENTIAL (PRIMARY) HYPERTENSION Status: Chronic Qualifiers: Hypertension type: essential hypertension Qualified Code(s): I10 - Essential (primary) hypertension (5) Obstructive sleep apnea Code(s): G47.33 - OBSTRUCTIVE SLEEP APNEA (ADULT) (PEDIATRIC) Status: Chronic (6) Cholelithiasis Code(s): K80.20 - CALCULUS OF GALLBLADDER W/O CHOLECYSTITIS W/O OBSTRUCTION Status: Chronic Qualifiers: Cholelithiasis location: gallbladder Cholecystitis presence: without cholecystitis (7) Hyperlipidemia Code(s): E78.5 - HYPERLIPIDEMIA, UNSPECIFIED Status: Chronic (8) Morbid obesity Code(s): E66.01 - MORBID (SEVERE) OBESITY DUE TO EXCESS CALORIES Status: Chronic - Plan is on nasal canula oxygen, steroids, eliquis hemostable continue norvasc, coreg, glipizide, lantus at 30u bid, metformin tid. to ambulate as tolerated in the room has sob on min exertion in the room dm is slowly getting controlled, is on tapering steroids prognosis guarded
[2019-10-03 12:24] LABS: SARS-CoV-2 IgG Ab Reactive (NonReactive); SARS-CoV-2 IgG Index 7.19 S/CO (< 1.40)
[2019-10-03] MEDS: Insulin Regular 300 UNITS/3 ML VIAL SC PRN ×3 (12:30→20:21)
[2019-10-04] MEDS: CEFAZOLIN 2 GM in Premix Bag 1 BAG IVPB SCH ×3 (02:57→19:11)
[2019-10-04] MEDS: Albuterol 200 PUFF (6.7GM INHALER) INH SCH ×6 (03:01→22:36)
[2019-10-04] MEDS: Famotidine 20 MG TAB PO SCH ×2 (08:06→20:18)
[2019-10-04] MEDS: Insulin Glargine 30 UNITS in Pre-Filled Syringe SC SCH ×2 (08:06→20:20)
[2019-10-04] MEDS: Doxycycline 100 MG CAP PO SCH ×2 (08:06→20:18)
[2019-10-04] MEDS: metFORMIN 500 MG TAB PO SCH ×3 (08:06→20:19)
[2019-10-04] MEDS: glipiZIDE 5 MG TAB PO SCH ×2 (08:06→15:57)
[2019-10-04] MEDS: Fluconazole 100 MG TAB PO SCH (08:07)
[2019-10-04] MEDS: guaiFENesin ER 600 MG TAB PO SCH ×2 (08:07→20:19)
[2019-10-04] MEDS: Apixaban 5 MG TAB PO SCH ×2 (08:07→20:18)
[2019-10-04] MEDS: Carvedilol 3.125 MG TAB PO SCH ×2 (08:07→16:00)
[2019-10-04] MEDS: Atorvastatin Calcium 10 MG TAB PO SCH (08:07)
[2019-10-04] MEDS: Amlodipine 10 MG TAB PO SCH (08:08)
[2019-10-04] MEDS: methylPREDNISolone Sod Succ 40 MG VIAL IVP SCH (08:08)
[2019-10-04] MEDS: Insulin Regular 300 UNITS/3 ML VIAL SC PRN (11:59)
--- NOTE | 2019-10-04 12:33 | PDOC.HOSPP ---
- Subjective Encounter Date: 10/04/19 Encounter Time: 11:00 Subjective: is ambulating in room, on nasal canula feels better - Objective Vital Signs & Weight: Vital Signs (12 hours) Temp Pulse Resp BP BP Pulse Ox 10/04/19 11:28 97.8 F 72 20 148/75 H 94 L 10/04/19 08:26 97.9 F 57 L 18 131/87 100 10/04/19 07:13 100 10/04/19 04:20 92 L 10/04/19 03:05 98.1 F 60 18 126/74 91 L Weight Admit Weight 352 lb Weight 351 lb 4.8 oz Most Recent Monitor Data Heart Rate from ECG 61 NIBP 129/81 NIBP BP-Mean 97 Respiration from ECG 19 SpO2 95 I&O: 10/03/19 10/04/19 10/05/19 06:59 06:59 06:59 Intake Total 1980 1260 Output Total 1620 825 Balance 360 435 Result Diagrams: 09/29/19 04:12 09/29/19 04:12 Additional Labs: Accuchecks 10/04/19 10/04/19 10/03/19 11:21 06:07 20:24 POC Glucose 175 H 141 H 254 H 10/03/19 10/03/19 17:47 12:30 POC Glucose 245 H 199 H Hospitalist ROS - Medication Medications: Active Medications Generic Name Dose Route Start Last Admin Trade Name Freq PRN Reason Stop Dose Admin Acetaminophen 650 mg 09/07/19 22:24 09/14/19 20:06 Tylenol PO 650 mg Q4H PRN Administration Headache/Fever/Mild Pain (1-3) Albuterol Sulfate 2 puff 09/15/19 06:30 10/04/19 10:23 Proventil Hfa INH 2 puff [id number] VANDANA Administration Amlodipine Besylate 10 mg 09/08/19 09:00 10/04/19 08:08 Norvasc PO 10 mg DAILY VANDANA Administration Apixaban 5 mg 09/22/19 09:00 10/04/19 08:07 Eliquis PO 5 mg BID VANDANA Administration Atorvastatin Calcium 10 mg 09/08/19 09:00 10/04/19 08:07 Lipitor PO 10 mg DAILY VANDANA Administration Benzonatate 100 mg 09/13/19 00:18 09/30/19 05:32 Tessalon PO 100 mg TIDPRN PRN Administration Cough Bisacodyl 10 mg 09/07/19 22:24 09/30/19 11:05 Dulcolax PO 10 mg DAILYPRN PRN Administration Constipation Carvedilol 3.125 mg 09/29/19 17:00 10/04/19 08:07 Coreg PO 3.125 mg BID-WM VANDANA Administration Chlorphenir/Hydrocodone Polistirex 10 ml 09/19/19 18:29 10/02/19 02:55 Tussionex PO 10 ml Q12H PRN Administration Cough Clonidine 0.1 mg 09/07/19 22:15 09/11/19 12:32 Catapres PO 0.1 mg BID PRN Administration SBP > 160 use second Doxycycline Hyclate 100 mg 09/30/19 21:00 10/04/19 08:06 Vibramycin PO 10/07/19 21:01 100 mg BID VANDANA Administration Famotidine 20 mg 09/08/19 09:00 10/04/19 08:06 Pepcid PO 20 mg BID VANDANA Administration Fluconazole 100 mg 09/30/19 09:00 10/04/19 08:07 Diflucan PO 100 mg DAILY VANDANA Administration Glipizide 5 mg 09/08/19 07:30 10/04/19 08:06 Glucotrol PO 5 mg BID-AC VANDANA Administration Guaifenesin 1,200 mg 09/19/19 21:00 10/04/19 08:07 Mucinex PO 1,200 mg Q12HR VANDANA Administration Cefazolin Sodium/Dextrose 2 gm 50 mls @ 100 mls/hr 09/26/19 18:00 10/04/19 10 :22 / Device IVPB 50 mls 0200,1000,1800 VANDANA Administration Insulin Glargine 30 units/ 0.3 mls @ 0 mls/hr 09/29/19 21:00 10/04/19 08:06 Miscellaneous Medication SC 0.3 mls BID VANDANA Administration Insulin Human Regular 0 units 09/07/19 22:16 10/04/19 11:59 Humulin R SC 2 unit .MODERATE SLIDING SC PRN Administration Moderate Correctional Scale Metformin HCl 500 mg 10/02/19 09:00 10/04/19 08:06 Glucophage PO 500 mg TID VANDANA Administration Methylprednisolone Sodium Succinate 40 mg 09/30/19 21:00 10/04/19 08:08 Solu-Medrol IVP 40 mg BID VANDANA Administration Nystatin 0 gm 09/28/19 17:32 09/30/19 17:39 Mycostatin Powder TOP 1 applic PRN PRN Administration Rash/Topical Irritation Ondansetron HCl 4 mg 09/07/19 22:15 09/21/19 10:14 Zofran IVP 4 mg Q6H PRN Administration Nausea/Vomiting use 1st Sodium Chloride 10 ml 09/08/19 09:00 10/04/19 08:09 Flush - Normal Saline IVF 10 ml Q12HR VANDANA Administration Sterile Water 1 ml 09/15/19 12:46 10/01/19 09:20 Bacteriostatic Water FS 1 ml PRN PRN Administration RECONSTITUTION - Exam General Appearance: awake alert Eye: PERRL, anicteric sclera ENT: no oropharyngeal lesions, moist mucosa Neck: supple, no JVD Heart: RRR, no murmur Respiratory: no wheezes, no rales, rhonchi Gastrointestinal: soft, non-tender, non-distended, normal bowel sounds Extremities: no edema Neurological: cranial nerve grossly intact, no focal deficits Psychiatric: normal affect, A&O x 3 Hosp A/P (1) Pneumonia due to COVID-19 virus Code(s): U07.1 - COVID-19; J12.89 - OTHER VIRAL PNEUMONIA Status: Acute (2) Acute respiratory failure with hypoxia Code(s): J96.01 - ACUTE RESPIRATORY FAILURE WITH HYPOXIA Status: Acute (3) MSSA bacteremia Code(s): R78.81 - BACTEREMIA; B95.61 - METHICILLIN SUSCEP STAPH INFCT CAUSING DIS CLASSD ELSWHR Status: Acute (4) Hypertension Code(s): I10 - ESSENTIAL (PRIMARY) HYPERTENSION Status: Chronic Qualifiers: Hypertension type: essential hypertension Qualified Code(s): I10 - Essential (primary) hypertension (5) Obstructive sleep apnea Code(s): G47.33 - OBSTRUCTIVE SLEEP APNEA (ADULT) (PEDIATRIC) Status: Chronic (6) Cholelithiasis Code(s): K80.20 - CALCULUS OF GALLBLADDER W/O CHOLECYSTITIS W/O OBSTRUCTION Status: Chronic Qualifiers: Cholelithiasis location: gallbladder Cholecystitis presence: without cholecystitis (7) Hyperlipidemia Code(s): E78.5 - HYPERLIPIDEMIA, UNSPECIFIED Status: Chronic (8) Morbid obesity Code(s): E66.01 - MORBID (SEVERE) OBESITY DUE TO EXCESS CALORIES Status: Chronic - Plan is on nasal canula oxygen, steroids, eliquis hemostable continue norvasc, coreg, glipizide, lantus at 30u bid, metformin tid. to ambulate as tolerated in the room has sob on min exertion in the room dm is controlled, is on tapering steroids prognosis guarded
--- NOTE | 2019-10-04 14:25 | PRG ---
DATE OF SERVICE: 10/04/2019 SUBJECTIVE: Billy Bonilla remains on nasal cannula oxygen. I have recommended cutting his steroids to 40 mg of prednisone from Solu-Medrol 40 b.i.d. He was placed back on IV steroids over the weekend. It may be a coincidence, but he seems to have had a significant improvement in gas exchange over the weekend. Once he is ambulatory, he could be discharged home with oxygen. I would recommend continuing his anticoagulants for 1 to 3 months. This obviously is a very unclear issue regarding the medical literature, but as long as he does not have a bleeding complication, it is a reasonable plan. Job ID: [id number]
[2019-10-04] MEDS: Nystatin Powder 15 GM BOT TOP PRN (16:32)
[2019-10-05] MEDS: CEFAZOLIN 2 GM in Premix Bag 1 BAG IVPB SCH ×3 (01:23→17:28)
[2019-10-05] MEDS: Albuterol 200 PUFF (6.7GM INHALER) INH SCH ×6 (01:24→23:49)
[2019-10-05] MEDS: Acetaminophen 325 MG TAB PO PRN ×2 (05:53→23:26)
[2019-10-05] MEDS: Insulin Glargine 30 UNITS in Pre-Filled Syringe SC SCH (08:03)
[2019-10-05] MEDS: Apixaban 5 MG TAB PO SCH ×2 (08:04→19:56)
[2019-10-05] MEDS: predniSONE 20 MG TAB PO SCH (08:04)
[2019-10-05] MEDS: glipiZIDE 5 MG TAB PO SCH ×2 (08:05→17:28)
[2019-10-05] MEDS: Famotidine 20 MG TAB PO SCH ×2 (08:05→19:56)
[2019-10-05] MEDS: Amlodipine 10 MG TAB PO SCH (08:05)
[2019-10-05] MEDS: guaiFENesin ER 600 MG TAB PO SCH ×2 (08:05→19:56)
[2019-10-05] MEDS: metFORMIN 500 MG TAB PO SCH ×3 (08:05→19:56)
[2019-10-05] MEDS: Fluconazole 100 MG TAB PO SCH (08:05)
[2019-10-05] MEDS: Atorvastatin Calcium 10 MG TAB PO SCH (08:05)
[2019-10-05] MEDS: Carvedilol 3.125 MG TAB PO SCH ×2 (08:05→17:28)
[2019-10-05] MEDS: Doxycycline 100 MG CAP PO SCH ×2 (08:05→19:56)
[2019-10-05] MEDS ORDERED: Insulin Glargine 10 UNITS in Pre-Filled Syringe 1 EACH SC SCH (09:00)
--- NOTE | 2019-10-05 11:54 | PDOC.HOSPP ---
- Subjective Encounter Date: 10/05/19 Encounter Time: 11:00 Subjective: feels better worried his urine is high colored is amb in room a bit - Objective Vital Signs & Weight: Vital Signs (12 hours) Temp Pulse Resp BP BP Pulse Ox 10/05/19 08:30 98.7 F 96 15 152/86 H 90 L 10/05/19 04:30 98.4 F 61 15 117/73 95 Weight Admit Weight 352 lb Weight 315 lb 2 oz Most Recent Monitor Data Heart Rate from ECG 61 NIBP 129/81 NIBP BP-Mean 97 Respiration from ECG 19 SpO2 95 I&O: 10/04/19 10/05/19 10/06/19 06:59 06:59 06:59 Intake Total 1260 480 Output Total 825 450 315 Balance 435 30 -315 Result Diagrams: 09/29/19 04:12 09/29/19 04:12 Additional Labs: Accuchecks 10/05/19 10/05/19 10/04/19 06:20 05:53 20:36 POC Glucose 75 67 L 273 H 10/04/19 10/04/19 16:08 11:21 POC Glucose 194 H 175 H Hospitalist ROS - Medication Medications: Active Medications Generic Name Dose Route Start Last Admin Trade Name Freq PRN Reason Stop Dose Admin Acetaminophen 650 mg 09/07/19 22:24 10/05/19 05:53 Tylenol PO 650 mg Q4H PRN Administration Headache/Fever/Mild Pain (1-3) Albuterol Sulfate 2 puff 09/15/19 06:30 10/05/19 09:31 Proventil Hfa INH 2 puff [id number] VANDANA Administration Amlodipine Besylate 10 mg 09/08/19 09:00 10/05/19 08:05 Norvasc PO 10 mg DAILY VANDANA Administration Apixaban 5 mg 09/22/19 09:00 10/05/19 08:04 Eliquis PO 5 mg BID VANDANA Administration Atorvastatin Calcium 10 mg 09/08/19 09:00 10/05/19 08:05 Lipitor PO 10 mg DAILY VANDANA Administration Benzonatate 100 mg 09/13/19 00:18 09/30/19 05:32 Tessalon PO 100 mg TIDPRN PRN Administration Cough Bisacodyl 10 mg 09/07/19 22:24 09/30/19 11:05 Dulcolax PO 10 mg DAILYPRN PRN Administration Constipation Carvedilol 3.125 mg 09/29/19 17:00 10/05/19 08:05 Coreg PO 3.125 mg BID-WM VANDANA Administration Chlorphenir/Hydrocodone Polistirex 10 ml 09/19/19 18:29 10/02/19 02:55 Tussionex PO 10 ml Q12H PRN Administration Cough Clonidine 0.1 mg 09/07/19 22:15 09/11/19 12:32 Catapres PO 0.1 mg BID PRN Administration SBP > 160 use second Doxycycline Hyclate 100 mg 09/30/19 21:00 10/05/19 08:05 Vibramycin PO 10/07/19 21:01 100 mg BID VANDANA Administration Famotidine 20 mg 09/08/19 09:00 10/05/19 08:05 Pepcid PO 20 mg BID VANDANA Administration Fluconazole 100 mg 09/30/19 09:00 10/05/19 08:05 Diflucan PO 100 mg DAILY VANDANA Administration Glipizide 5 mg 09/08/19 07:30 10/05/19 08:05 Glucotrol PO 5 mg BID-AC VANDANA Administration Guaifenesin 1,200 mg 09/19/19 21:00 10/05/19 08:05 Mucinex PO 1,200 mg Q12HR VANDANA Administration Cefazolin Sodium/Dextrose 2 gm 50 mls @ 100 mls/hr 09/26/19 18:00 10/05/19 09 :30 / Device IVPB 50 mls 0200,1000,1800 VANDANA Administration Insulin Glargine 10 units/ 0.1 mls @ 0 mls/hr 10/05/19 09:00 10/05/19 09:31 Miscellaneous Medication SC Not Given BID [facility] Insulin Human Regular 0 units 09/07/19 22:16 10/04/19 11:59 Humulin R SC 2 unit .MODERATE SLIDING SC PRN Administration Moderate Correctional Scale Metformin HCl 500 mg 10/02/19 09:00 10/05/19 08:05 Glucophage PO 500 mg TID VANDANA Administration Nystatin 0 gm 09/28/19 17:32 10/04/19 16:32 Mycostatin Powder TOP 1 applic PRN PRN Administration Rash/Topical Irritation Ondansetron HCl 4 mg 09/07/19 22:15 09/21/19 10:14 Zofran IVP 4 mg Q6H PRN Administration Nausea/Vomiting use 1st Prednisone 40 mg 10/05/19 08:00 10/05/19 08:04 Prednisone PO 40 mg QAM-WM VANDANA Administration Sodium Chloride 10 ml 09/08/19 09:00 10/05/19 08:06 Flush - Normal Saline IVF 10 ml Q12HR VANDANA Administration Sterile Water 1 ml 09/15/19 12:46 10/01/19 09:20 Bacteriostatic Water FS 1 ml PRN PRN Administration RECONSTITUTION - Exam General Appearance: awake alert Eye: PERRL, anicteric sclera ENT: no oropharyngeal lesions, moist mucosa Neck: supple, no JVD Heart: RRR, no murmur Respiratory: no wheezes, rales, rhonchi Gastrointestinal: soft, non-tender, non-distended, normal bowel sounds Extremities: no cyanosis, no edema Neurological: cranial nerve grossly intact, no focal deficits Psychiatric: normal affect, A&O x 3 Hosp A/P (1) Pneumonia due to COVID-19 virus Code(s): U07.1 - COVID-19; J12.89 - OTHER VIRAL PNEUMONIA Status: Acute (2) Acute respiratory failure with hypoxia Code(s): J96.01 - ACUTE RESPIRATORY FAILURE WITH HYPOXIA Status: Acute (3) MSSA bacteremia Code(s): R78.81 - BACTEREMIA; B95.61 - METHICILLIN SUSCEP STAPH INFCT CAUSING DIS CLASSD ELSWHR Status: Acute (4) Hypertension Code(s): I10 - ESSENTIAL (PRIMARY) HYPERTENSION Status: Chronic Qualifiers: Hypertension type: essential hypertension Qualified Code(s): I10 - Essential (primary) hypertension (5) Obstructive sleep apnea Code(s): G47.33 - OBSTRUCTIVE SLEEP APNEA (ADULT) (PEDIATRIC) Status: Chronic (6) Cholelithiasis Code(s): K80.20 - CALCULUS OF GALLBLADDER W/O CHOLECYSTITIS W/O OBSTRUCTION Status: Chronic Qualifiers: Cholelithiasis location: gallbladder Cholecystitis presence: without cholecystitis (7) Hyperlipidemia Code(s): E78.5 - HYPERLIPIDEMIA, UNSPECIFIED Status: Chronic (8) Morbid obesity Code(s): E66.01 - MORBID (SEVERE) OBESITY DUE TO EXCESS CALORIES Status: Chronic - Plan is on nasal canula oxygen, steroids, eliquis hemostable continue norvasc, coreg, glipizide, lantus at 10u bid, metformin tid. to ambulate as tolerated in the room dm is controlled, is on tapering steroids prognosis guarded
[2019-10-05 12:23] LABS: #Eosinphils 0.1 thou/uL (0.0-0.7); #Lymphocytes 0.6 thou/uL (1.20-3.40); #Monocytes 0.8 thou/uL (0.11-0.59); %Basophils 0.1 % (0.0-1.0); %Eosinophils 0.8 % (0.0-10.0); %Lymphocytes 5.1 % (21.0-51.0); %Monocytes 6.3 % (0.0-10.0); %Neutrophils 87.7 % (42.0-75.0); Hemoglobin 16.3 g/dL (14.0-18.0); Mean Corpuscular Hemoglobin 31.4 pg (27.0-31.0); Mean Corpuscular Volume 92.4 fL (78.0-98.0); Mean Platelet Volume 7.9 fL (7.4-10.4); Platelet Count 179 thou/uL (130-400); RBC Distribution Width 12.8 % (11.5-14.5); Red Blood Cell (RBC) Count 5.19 mill/uL (4.70-6.10); White Blood Cell (WBC) Count 12.5 thou/uL (4.8-10.8)
[2019-10-05 12:45] LABS: ALT (SGPT) 176 U/L (8-55); AST (SGOT) 103 U/L (5-34); Albumin 3.5 g/dL (3.5-5.0); Alkaline Phosphatase 79 U/L (40-110); Anion Gap 11 mmol/L (10-20); BUN (Urea Nitrogen) 12 mg/dL (8.9-20.6); Bilirubin, Total 1.7 mg/dL (0.2-1.2); Calc. Creatinine Clearance 319 mL/min (70-130); Calcium 8.9 mg/dL (7.8-10.44); Carbon Dioxide 27 mmol/L (22-29); Chloride 100 mmol/L (98-107); Estimated GFR-MDRD Greater than 90; Globulin 2.5 g/dL (2.4-3.5); Glucose 109 mg/dL (70-105); Potassium 3.8 mmol/L (3.5-5.1); Sodium 134 mmol/L (136-145)
[2019-10-05 13:01] LABS: INR-International Normal Ratio 1.1; PTT 30.5 sec (22.9-36.1); Prothrombin Time 14.4 sec (12.0-14.7)
[2019-10-06] MEDS: CEFAZOLIN 2 GM in Premix Bag 1 BAG IVPB SCH ×3 (03:05→18:00)
[2019-10-06] MEDS: Albuterol 200 PUFF (6.7GM INHALER) INH SCH ×7 (03:21→22:14)
[2019-10-06] MEDS: glipiZIDE 5 MG TAB PO SCH ×2 (08:18→15:42)
[2019-10-06] MEDS: Apixaban 5 MG TAB PO SCH ×2 (08:19→19:54)
[2019-10-06] MEDS: Doxycycline 100 MG CAP PO SCH ×2 (08:19→19:54)
[2019-10-06] MEDS: predniSONE 20 MG TAB PO SCH (08:19)
[2019-10-06] MEDS: Amlodipine 10 MG TAB PO SCH (08:19)
[2019-10-06] MEDS: Carvedilol 3.125 MG TAB PO SCH ×2 (08:19→18:00)
[2019-10-06] MEDS: Fluconazole 100 MG TAB PO SCH (08:19)
[2019-10-06] MEDS: Famotidine 20 MG TAB PO SCH ×2 (08:19→19:54)
[2019-10-06] MEDS: Atorvastatin Calcium 10 MG TAB PO SCH (08:19)
[2019-10-06] MEDS: guaiFENesin ER 600 MG TAB PO SCH ×2 (08:20→19:54)
[2019-10-06] MEDS: metFORMIN 500 MG TAB PO SCH ×3 (08:20→19:54)
[2019-10-06] MEDS: Insulin Glargine 10 UNITS in Pre-Filled Syringe SC SCH ×2 (08:20→20:30)
--- NOTE | 2019-10-06 11:32 | PDOC.HOSPP ---
- Subjective Encounter Date: 10/06/19 Encounter Time: 11:00 Subjective: no new symptoms is ambulating minimally in room on nasal canula sleeps on bed to lat sides now at night - Objective Vital Signs & Weight: Vital Signs (12 hours) Temp Pulse Resp BP BP BP Pulse Ox 10/06/19 08:30 97.8 F 80 18 130/85 95 10/06/19 08:19 61 10/06/19 03:21 98.4 F 61 20 123/68 96 10/05/19 23:49 98.4 F 81 20 141/75 H 92 L Weight Admit Weight 352 lb Weight 315 lb 2 oz Most Recent Monitor Data Heart Rate from ECG 61 NIBP 129/81 NIBP BP-Mean 97 Respiration from ECG 19 SpO2 95 I&O: 10/05/19 10/06/19 10/07/19 06:59 06:59 06:59 Intake Total 480 1297 240 Output Total 450 1810 400 Balance 26 -176 -604 Result Diagrams: 10/05/19 12:14 10/05/19 12:14 Additional Labs: Accuchecks 10/06/19 10/06/19 10/05/19 10:40 04:00 20:25 POC Glucose 113 H 116 H 134 H 10/05/19 10/05/19 17:50 12:42 POC Glucose 113 H 104 Hospitalist ROS - Medication Medications: Active Medications Generic Name Dose Route Start Last Admin Trade Name Freq PRN Reason Stop Dose Admin Acetaminophen 650 mg 09/07/19 22:24 10/05/19 23:26 Tylenol PO 650 mg Q4H PRN Administration Headache/Fever/Mild Pain (1-3) Albuterol Sulfate 2 puff 09/15/19 06:30 10/06/19 09:33 Proventil Hfa INH 2 puff [id number] VANDANA Administration Amlodipine Besylate 10 mg 09/08/19 09:00 10/06/19 08:19 Norvasc PO 10 mg DAILY VANDANA Administration Apixaban 5 mg 09/22/19 09:00 10/06/19 08:19 Eliquis PO 5 mg BID VANDANA Administration Atorvastatin Calcium 10 mg 09/08/19 09:00 10/06/19 08:19 Lipitor PO 10 mg DAILY VANDANA Administration Benzonatate 100 mg 09/13/19 00:18 09/30/19 05:32 Tessalon PO 100 mg TIDPRN PRN Administration Cough Bisacodyl 10 mg 09/07/19 22:24 09/30/19 11:05 Dulcolax PO 10 mg DAILYPRN PRN Administration Constipation Carvedilol 3.125 mg 09/29/19 17:00 10/06/19 08:19 Coreg PO 3.125 mg BID-WM VANDANA Administration Chlorphenir/Hydrocodone Polistirex 10 ml 09/19/19 18:29 10/02/19 02:55 Tussionex PO 10 ml Q12H PRN Administration Cough Clonidine 0.1 mg 09/07/19 22:15 09/11/19 12:32 Catapres PO 0.1 mg BID PRN Administration SBP > 160 use second Doxycycline Hyclate 100 mg 09/30/19 21:00 10/06/19 08:19 Vibramycin PO 10/07/19 21:01 100 mg BID VANDANA Administration Famotidine 20 mg 09/08/19 09:00 10/06/19 08:19 Pepcid PO 20 mg BID VANDANA Administration Fluconazole 100 mg 09/30/19 09:00 10/06/19 08:19 Diflucan PO 100 mg DAILY VANDANA Administration Glipizide 5 mg 09/08/19 07:30 10/06/19 08:18 Glucotrol PO 5 mg BID-AC VANDANA Administration Guaifenesin 1,200 mg 09/19/19 21:00 10/06/19 08:20 Mucinex PO 1,200 mg Q12HR VANDANA Administration Cefazolin Sodium/Dextrose 2 gm 50 mls @ 100 mls/hr 09/26/19 18:00 10/06/19 09 :33 / Device IVPB 50 mls 0200,1000,1800 VANDANA Administration Insulin Glargine 10 units/ 0.1 mls @ 0 mls/hr 10/06/19 09:00 10/06/19 08:20 Miscellaneous Medication SC 0.1 mls BID VANDANA Administration Insulin Human Regular 0 units 09/07/19 22:16 10/04/19 11:59 Humulin R SC 2 unit .MODERATE SLIDING SC PRN Administration Moderate Correctional Scale Metformin HCl 500 mg 10/02/19 09:00 10/06/19 08:20 Glucophage PO 500 mg TID VANDANA Administration Nystatin 0 gm 09/28/19 17:32 10/04/19 16:32 Mycostatin Powder TOP 1 applic PRN PRN Administration Rash/Topical Irritation Ondansetron HCl 4 mg 09/07/19 22:15 09/21/19 10:14 Zofran IVP 4 mg Q6H PRN Administration Nausea/Vomiting use 1st Prednisone 40 mg 10/05/19 08:00 10/06/19 08:19 Prednisone PO 40 mg QAM-WM VANDANA Administration Sodium Chloride 10 ml 09/08/19 09:00 10/06/19 08:20 Flush - Normal Saline IVF 10 ml Q12HR VANDANA Administration Sodium Chloride 10 ml 09/07/19 22:34 10/06/19 03:07 Flush - Normal Saline IVF 10 ml PRN PRN Administration Saline Flush Sterile Water 1 ml 09/15/19 12:46 10/01/19 09:20 Bacteriostatic Water FS 1 ml PRN PRN Administration RECONSTITUTION - Exam General Appearance: awake alert Eye: PERRL, anicteric sclera ENT: no oropharyngeal lesions, moist mucosa Neck: supple, no JVD Heart: RRR, no murmur Respiratory: no wheezes, no rales, rhonchi Gastrointestinal: soft, non-tender, non-distended, normal bowel sounds Extremities: no cyanosis, no edema Neurological: cranial nerve grossly intact, no focal deficits Psychiatric: normal affect, A&O x 3 Hosp A/P (1) Pneumonia due to COVID-19 virus Code(s): U07.1 - COVID-19; J12.89 - OTHER VIRAL PNEUMONIA Status: Acute (2) Acute respiratory failure with hypoxia Code(s): J96.01 - ACUTE RESPIRATORY FAILURE WITH HYPOXIA Status: Acute (3) MSSA bacteremia Code(s): R78.81 - BACTEREMIA; B95.61 - METHICILLIN SUSCEP STAPH INFCT CAUSING DIS CLASSD ELSWHR Status: Acute (4) Hypertension Code(s): I10 - ESSENTIAL (PRIMARY) HYPERTENSION Status: Chronic Qualifiers: Hypertension type: essential hypertension Qualified Code(s): I10 - Essential (primary) hypertension (5) Obstructive sleep apnea Code(s): G47.33 - OBSTRUCTIVE SLEEP APNEA (ADULT) (PEDIATRIC) Status: Chronic (6) Cholelithiasis Code(s): K80.20 - CALCULUS OF GALLBLADDER W/O CHOLECYSTITIS W/O OBSTRUCTION Status: Chronic Qualifiers: Cholelithiasis location: gallbladder Cholecystitis presence: without cholecystitis (7) Hyperlipidemia Code(s): E78.5 - HYPERLIPIDEMIA, UNSPECIFIED Status: Chronic (8) Morbid obesity Code(s): E66.01 - MORBID (SEVERE) OBESITY DUE TO EXCESS CALORIES Status: Chronic - Plan is on nasal canula oxygen, steroids, eliquis, ancef for staph bacteremia. hemostable continue norvasc, coreg, glipizide, lantus at 10u bid, metformin tid. to ambulate as tolerated in the room dm is controlled, is on tapering steroids prognosis guarded If he is cleared for dc by he will need home O2 and [facility] (they do pna f/u for covid patients per recent message), d/w Mr.Rodney BAUTISTA.
[2019-10-06] MEDS: Nystatin Powder 15 GM BOT TOP PRN (12:30)
[2019-10-07] MEDS: CEFAZOLIN 2 GM in Premix Bag 1 BAG IVPB SCH ×3 (02:17→17:36)
[2019-10-07] MEDS: Albuterol 200 PUFF (6.7GM INHALER) INH SCH ×6 (02:17→22:02)
[2019-10-07] MEDS: Acetaminophen 325 MG TAB PO PRN ×2 (02:31→22:09)
[2019-10-07] MEDS: Doxycycline 100 MG CAP PO SCH ×2 (08:20→20:01)
[2019-10-07] MEDS: Fluconazole 100 MG TAB PO SCH (08:20)
[2019-10-07] MEDS: Atorvastatin Calcium 10 MG TAB PO SCH (08:20)
[2019-10-07] MEDS: Famotidine 20 MG TAB PO SCH ×2 (08:20→20:01)
[2019-10-07] MEDS: Insulin Glargine 10 UNITS in Pre-Filled Syringe SC SCH ×2 (08:20→20:24)
[2019-10-07] MEDS: glipiZIDE 5 MG TAB PO SCH ×2 (08:20→17:36)
[2019-10-07] MEDS: metFORMIN 500 MG TAB PO SCH ×3 (08:20→20:01)
[2019-10-07] MEDS: predniSONE 20 MG TAB PO SCH (08:21)
[2019-10-07] MEDS: Apixaban 5 MG TAB PO SCH ×2 (08:21→20:01)
[2019-10-07] MEDS: Carvedilol 3.125 MG TAB PO SCH ×2 (08:21→17:37)
[2019-10-07] MEDS: Amlodipine 10 MG TAB PO SCH (08:21)
[2019-10-07] MEDS: guaiFENesin ER 600 MG TAB PO SCH ×2 (08:21→20:01)
--- NOTE | 2019-10-07 11:24 | PDOC.HOSPP ---
- Subjective Encounter Date: 10/07/19 Encounter Time: 10:00 Subjective: no sob, feels better is eating and sleeping well - Objective Vital Signs & Weight: Vital Signs (12 hours) Temp Pulse Resp BP BP BP Pulse Ox 10/07/19 08:35 91 L 10/07/19 08:30 97.6 F 77 22 H 129/79 91 L 10/07/19 02:20 98.9 F 74 19 116/61 94 L 10/07/19 01:30 93 L 10/06/19 23:39 98.9 F 75 20 129/75 93 L Weight Admit Weight 352 lb Weight 313 lb 9.6 oz Most Recent Monitor Data Heart Rate from ECG 61 NIBP 129/81 NIBP BP-Mean 97 Respiration from ECG 19 SpO2 95 I&O: 10/06/19 10/07/19 10/08/19 06:59 06:59 06:59 Intake Total 1297 1900 480 Output Total 1810 700 Balance -513 1200 480 Result Diagrams: 10/05/19 12:14 10/05/19 12:14 Additional Labs: Accuchecks 10/07/19 10/06/19 10/06/19 05:54 20:01 15:51 POC Glucose 82 160 H 182 H Hospitalist ROS - Medication Medications: Active Medications Generic Name Dose Route Start Last Admin Trade Name Freq PRN Reason Stop Dose Admin Acetaminophen 650 mg 09/07/19 22:24 10/07/19 02:31 Tylenol PO 650 mg Q4H PRN Administration Headache/Fever/Mild Pain (1-3) Albuterol Sulfate 2 puff 09/15/19 06:30 10/07/19 08:21 Proventil Hfa INH 2 puff [id number] VANDANA Administration Amlodipine Besylate 10 mg 09/08/19 09:00 10/07/19 08:21 Norvasc PO 10 mg DAILY VANDANA Administration Apixaban 5 mg 09/22/19 09:00 10/07/19 08:21 Eliquis PO 5 mg BID VANDANA Administration Atorvastatin Calcium 10 mg 09/08/19 09:00 10/07/19 08:20 Lipitor PO 10 mg DAILY VANDANA Administration Benzonatate 100 mg 09/13/19 00:18 09/30/19 05:32 Tessalon PO 100 mg TIDPRN PRN Administration Cough Bisacodyl 10 mg 09/07/19 22:24 09/30/19 11:05 Dulcolax PO 10 mg DAILYPRN PRN Administration Constipation Carvedilol 3.125 mg 09/29/19 17:00 10/07/19 08:21 Coreg PO 3.125 mg BID-WM VANDANA Administration Chlorphenir/Hydrocodone Polistirex 10 ml 09/19/19 18:29 10/02/19 02:55 Tussionex PO 10 ml Q12H PRN Administration Cough Clonidine 0.1 mg 09/07/19 22:15 09/11/19 12:32 Catapres PO 0.1 mg BID PRN Administration SBP > 160 use second Doxycycline Hyclate 100 mg 09/30/19 21:00 10/07/19 08:20 Vibramycin PO 10/07/19 21:01 100 mg BID VANDANA Administration Famotidine 20 mg 09/08/19 09:00 10/07/19 08:20 Pepcid PO 20 mg BID VANDANA Administration Fluconazole 100 mg 09/30/19 09:00 10/07/19 08:20 Diflucan PO 100 mg DAILY VANDANA Administration Glipizide 5 mg 09/08/19 07:30 10/07/19 08:20 Glucotrol PO 5 mg BID-AC VANDANA Administration Guaifenesin 1,200 mg 09/19/19 21:00 10/07/19 08:21 Mucinex PO 1,200 mg Q12HR VANDANA Administration Cefazolin Sodium/Dextrose 2 gm 50 mls @ 100 mls/hr 09/26/19 18:00 10/07/19 08 :16 / Device IVPB 50 mls 0200,1000,1800 VANDANA Administration Insulin Glargine 10 units/ 0.1 mls @ 0 mls/hr 10/06/19 09:00 10/07/19 08:20 Miscellaneous Medication SC 0.1 mls BID VANDANA Administration Insulin Human Regular 0 units 09/07/19 22:16 10/04/19 11:59 Humulin R SC 2 unit .MODERATE SLIDING SC PRN Administration Moderate Correctional Scale Metformin HCl 500 mg 10/02/19 09:00 10/07/19 08:20 Glucophage PO 500 mg TID VANDANA Administration Nystatin 0 gm 09/28/19 17:32 10/06/19 12:30 Mycostatin Powder TOP 1 applic PRN PRN Administration Rash/Topical Irritation Ondansetron HCl 4 mg 09/07/19 22:15 09/21/19 10:14 Zofran IVP 4 mg Q6H PRN Administration Nausea/Vomiting use 1st Prednisone 40 mg 10/05/19 08:00 10/07/19 08:21 Prednisone PO 40 mg QAM-WM VANDANA Administration Sodium Chloride 10 ml 09/08/19 09:00 10/07/19 08:17 Flush - Normal Saline IVF 10 ml Q12HR VANDANA Administration Sodium Chloride 10 ml 09/07/19 22:34 10/06/19 03:07 Flush - Normal Saline IVF 10 ml PRN PRN Administration Saline Flush Sterile Water 1 ml 09/15/19 12:46 10/01/19 09:20 Bacteriostatic Water FS 1 ml PRN PRN Administration RECONSTITUTION - Exam General Appearance: awake alert Eye: PERRL, anicteric sclera ENT: no oropharyngeal lesions, moist mucosa Neck: supple, no JVD Heart: RRR, no murmur Respiratory: no wheezes, no rales, rhonchi Gastrointestinal: soft, non-tender, non-distended, normal bowel sounds Extremities: no cyanosis, no edema Neurological: cranial nerve grossly intact, no focal deficits Psychiatric: normal affect, A&O x 3 Hosp A/P (1) Pneumonia due to COVID-19 virus Code(s): U07.1 - COVID-19; J12.89 - OTHER VIRAL PNEUMONIA Status: Acute (2) Acute respiratory failure with hypoxia Code(s): J96.01 - ACUTE RESPIRATORY FAILURE WITH HYPOXIA Status: Acute (3) MSSA bacteremia Code(s): R78.81 - BACTEREMIA; B95.61 - METHICILLIN SUSCEP STAPH INFCT CAUSING DIS CLASSD ELSWHR Status: Acute (4) Hypertension Code(s): I10 - ESSENTIAL (PRIMARY) HYPERTENSION Status: Chronic Qualifiers: Hypertension type: essential hypertension Qualified Code(s): I10 - Essential (primary) hypertension (5) Obstructive sleep apnea Code(s): G47.33 - OBSTRUCTIVE SLEEP APNEA (ADULT) (PEDIATRIC) Status: Chronic (6) Cholelithiasis Code(s): K80.20 - CALCULUS OF GALLBLADDER W/O CHOLECYSTITIS W/O OBSTRUCTION Status: Chronic Qualifiers: Cholelithiasis location: gallbladder Cholecystitis presence: without cholecystitis (7) Hyperlipidemia Code(s): E78.5 - HYPERLIPIDEMIA, UNSPECIFIED Status: Chronic (8) Morbid obesity Code(s): E66.01 - MORBID (SEVERE) OBESITY DUE TO EXCESS CALORIES Status: Chronic - Plan is on nasal canula 3 lts oxygen, steroids, eliquis, ancef for staph bacteremia. hemostable continue norvasc, coreg, glipizide, lantus at 10u bid, metformin tid. to ambulate as tolerated in the room dm is controlled, is on tapering steroids prognosis guarded If he is cleared for dc by he will need home O23lts and [facility] (they do pna f/u for covid patients per recent message), d/w Mr.Rodney ZUNIGA For picc line and outpt ancef x 4 weeks per dc plan likely Wednesday when picc line and antibiotics are arranged.
--- NOTE | 2019-10-07 15:39 | PRG ---
DATE OF SERVICE: SUBJECTIVE: Feeling good. Transferred to floor. Nasal cannula O2. Doing some occupational therapy now. Still with some cough, but not as much as before. Much more comfortable. Eating well. No abdominal pain or diarrhea. No genitourinary symptoms. OBJECTIVE: VITAL SIGNS: His temperature has been normal, blood pressure 114/74, pulse 89, respirations 22, and O2 sat ranging from 91 to 98 on 3 L. LUNGS: Quite clear to auscultation. HEART: S1 and S2, regular rate. ABDOMEN: Soft. Not distended or tender. EXTREMITIES: Moves all extremities equally. No edema. LABORATORY DATA: White cell count 12.5, hemoglobin 16, platelets 179, and creatinine 0.61. The D-dimer has not been repeated since the 3rd. The last ferritin was from the 3rd as well, 778; the last C-reactive protein was from the 3rd as well, 1.95. The patient is getting cefazolin now for about 20 days and has another 3 weeks to complete a course of treatment at least depending on findings on MRI. ASSESSMENT AND DISCUSSION: Type 2 diabetes, obesity, hypertension, methicillin-sensitive Staphylococcus aureus bacteremia, likely with thoracic spine diskitis as well as severe COVID infection with pneumonia. The patient has recovered part of his lung function in significant fashion, and we will go ahead and repeat his inflammatory markers and D-dimer. Order for PICC line for 3 more weeks to complete his treatment. We will repeat his COVID-19 PCR to see if we can send him for MRI of the thoracic spine. He has lost quite a bit of weight over the past few weeks. He should be eligible to complete an MRI at this time. Job ID: [id number]
[2019-10-08] MEDS: CEFAZOLIN 2 GM in Premix Bag 1 BAG IVPB SCH ×3 (01:53→17:28)
[2019-10-08] MEDS: Albuterol 200 PUFF (6.7GM INHALER) INH SCH ×6 (01:55→21:43)
[2019-10-08 05:10] LABS: Prothrombin Time 13.6 sec (12.0-14.7)
[2019-10-08 05:11] LABS: D-Dimer Test 0.52 *mcg/mL (0.27-0.43)
[2019-10-08] MEDS: metFORMIN 500 MG TAB PO SCH ×3 (08:27→19:22)
[2019-10-08] MEDS: glipiZIDE 5 MG TAB PO SCH ×2 (08:27→17:28)
[2019-10-08] MEDS: Insulin Glargine 10 UNITS in Pre-Filled Syringe SC SCH ×2 (08:28→21:42)
[2019-10-08] MEDS: guaiFENesin ER 600 MG TAB PO SCH ×2 (08:28→19:22)
[2019-10-08] MEDS: Famotidine 20 MG TAB PO SCH ×2 (08:28→19:22)
[2019-10-08] MEDS: Atorvastatin Calcium 10 MG TAB PO SCH (08:29)
[2019-10-08] MEDS: Fluconazole 100 MG TAB PO SCH (08:29)
[2019-10-08] MEDS: Carvedilol 3.125 MG TAB PO SCH ×2 (08:29→17:28)
[2019-10-08] MEDS: Amlodipine 10 MG TAB PO SCH (08:29)
[2019-10-08] MEDS: predniSONE 20 MG TAB PO SCH (08:29)
[2019-10-08] MEDS: Apixaban 5 MG TAB PO SCH ×2 (08:29→19:22)
--- NOTE | 2019-10-08 10:26 | PDOC.HOSPP ---
- Subjective Encounter Date: 10/08/19 Encounter Time: 10:00 Subjective: no sob, is feeling better no new complaints - Objective Vital Signs & Weight: Vital Signs (12 hours) Temp Pulse Resp BP BP Pulse Ox 10/08/19 08:30 98.6 F 85 16 164/88 H 96 10/08/19 02:10 98.6 F 66 20 138/82 93 L Weight Admit Weight 352 lb Weight 313 lb 9.6 oz Most Recent Monitor Data Heart Rate from ECG 61 NIBP 129/81 NIBP BP-Mean 97 Respiration from ECG 19 SpO2 95 I&O: 10/07/19 10/08/19 10/09/19 06:59 06:59 06:59 Intake Total 1900 2060 Output Total 700 1675 Balance 1200 385 Result Diagrams: 10/05/19 12:14 10/05/19 12:14 Additional Labs: Accuchecks 10/08/19 10/07/19 10/07/19 05:42 20:14 17:45 POC Glucose 76 178 H 163 H 10/07/19 10:55 POC Glucose 107 Hospitalist ROS - Medication Medications: Active Medications Generic Name Dose Route Start Last Admin Trade Name Freq PRN Reason Stop Dose Admin Acetaminophen 650 mg 09/07/19 22:24 10/07/19 22:09 Tylenol PO 650 mg Q4H PRN Administration Headache/Fever/Mild Pain (1-3) Albuterol Sulfate 2 puff 09/15/19 06:30 10/08/19 08:30 Proventil Hfa INH 2 puff [id number] VANDANA Administration Amlodipine Besylate 10 mg 09/08/19 09:00 10/08/19 08:29 Norvasc PO 10 mg DAILY VANDANA Administration Apixaban 5 mg 09/22/19 09:00 10/08/19 08:29 Eliquis PO 5 mg BID VANDANA Administration Atorvastatin Calcium 10 mg 09/08/19 09:00 10/08/19 08:29 Lipitor PO 10 mg DAILY VANDANA Administration Benzonatate 100 mg 09/13/19 00:18 09/30/19 05:32 Tessalon PO 100 mg TIDPRN PRN Administration Cough Bisacodyl 10 mg 09/07/19 22:24 09/30/19 11:05 Dulcolax PO 10 mg DAILYPRN PRN Administration Constipation Carvedilol 3.125 mg 09/29/19 17:00 10/08/19 08:29 Coreg PO 3.125 mg BID-WM VANDANA Administration Chlorphenir/Hydrocodone Polistirex 10 ml 09/19/19 18:29 10/02/19 02:55 Tussionex PO 10 ml Q12H PRN Administration Cough Clonidine 0.1 mg 09/07/19 22:15 09/11/19 12:32 Catapres PO 0.1 mg BID PRN Administration SBP > 160 use second Famotidine 20 mg 09/08/19 09:00 10/08/19 08:28 Pepcid PO 20 mg BID VANDANA Administration Fluconazole 100 mg 09/30/19 09:00 10/08/19 08:29 Diflucan PO 100 mg DAILY VANDANA Administration Glipizide 5 mg 09/08/19 07:30 10/08/19 08:27 Glucotrol PO Not Given BID-AC VANDANA Guaifenesin 1,200 mg 09/19/19 21:00 10/08/19 08:28 Mucinex PO 1,200 mg Q12HR VANDANA Administration Cefazolin Sodium/Dextrose 2 gm 50 mls @ 100 mls/hr 09/26/19 18:00 10/08/19 08 :30 / Device IVPB 50 mls 0200,1000,1800 VANDANA Administration Insulin Glargine 10 units/ 0.1 mls @ 0 mls/hr 10/06/19 09:00 10/08/19 08:28 Miscellaneous Medication SC 0.1 mls BID VANDANA Administration Insulin Human Regular 0 units 09/07/19 22:16 10/04/19 11:59 Humulin R SC 2 unit .MODERATE SLIDING SC PRN Administration Moderate Correctional Scale Metformin HCl 500 mg 10/02/19 09:00 10/08/19 08:27 Glucophage PO Not Given TID VANDANA Nystatin 0 gm 09/28/19 17:32 10/06/19 12:30 Mycostatin Powder TOP 1 applic PRN PRN Administration Rash/Topical Irritation Ondansetron HCl 4 mg 09/07/19 22:15 09/21/19 10:14 Zofran IVP 4 mg Q6H PRN Administration Nausea/Vomiting use 1st Prednisone 40 mg 10/05/19 08:00 10/08/19 08:29 Prednisone PO 40 mg QAM-WM VANDANA Administration Sodium Chloride 10 ml 09/08/19 09:00 10/08/19 08:28 Flush - Normal Saline IVF 10 ml Q12HR VANDANA Administration Sodium Chloride 10 ml 09/07/19 22:34 10/06/19 03:07 Flush - Normal Saline IVF 10 ml PRN PRN Administration Saline Flush Sterile Water 1 ml 09/15/19 12:46 10/01/19 09:20 Bacteriostatic Water FS 1 ml PRN PRN Administration RECONSTITUTION - Exam General Appearance: awake alert Eye: PERRL, anicteric sclera ENT: no oropharyngeal lesions, moist mucosa Neck: supple, no JVD Heart: no murmur, no gallops Respiratory: no wheezes, no rales, rhonchi Gastrointestinal: soft, non-tender, non-distended, normal bowel sounds Extremities: no cyanosis, no edema Neurological: cranial nerve grossly intact, no focal deficits Psychiatric: normal affect, A&O x 3 Hosp A/P (1) Pneumonia due to COVID-19 virus Code(s): U07.1 - COVID-19; J12.89 - OTHER VIRAL PNEUMONIA Status: Acute (2) Acute respiratory failure with hypoxia Code(s): J96.01 - ACUTE RESPIRATORY FAILURE WITH HYPOXIA Status: Acute (3) MSSA bacteremia Code(s): R78.81 - BACTEREMIA; B95.61 - METHICILLIN SUSCEP STAPH INFCT CAUSING DIS CLASSD ELSWHR Status: Acute (4) Hypertension Code(s): I10 - ESSENTIAL (PRIMARY) HYPERTENSION Status: Chronic Qualifiers: Hypertension type: essential hypertension Qualified Code(s): I10 - Essential (primary) hypertension (5) Obstructive sleep apnea Code(s): G47.33 - OBSTRUCTIVE SLEEP APNEA (ADULT) (PEDIATRIC) Status: Chronic (6) Cholelithiasis Code(s): K80.20 - CALCULUS OF GALLBLADDER W/O CHOLECYSTITIS W/O OBSTRUCTION Status: Chronic Qualifiers: Cholelithiasis location: gallbladder Cholecystitis presence: without cholecystitis (7) Hyperlipidemia Code(s): E78.5 - HYPERLIPIDEMIA, UNSPECIFIED Status: Chronic (8) Morbid obesity Code(s): E66.01 - MORBID (SEVERE) OBESITY DUE TO EXCESS CALORIES Status: Chronic - Plan is on nasal canula 3 lts oxygen, steroids, eliquis, ancef for staph bacteremia. hemostable continue norvasc, coreg, glipizide, lantus at 10u bid, metformin tid. to ambulate as tolerated in the room dm is controlled, is on tapering steroids prognosis guarded If he is cleared for dc by he will need home O2@3lts and [facility] (they do pna f/u for covid patients per recent message), d/w Mr.Rodney BAUTISTA. For picc line and outpt ancef x 3 weeks per dc plan likely Wednesday when picc line and antibiotics are arranged.
[2019-10-08 12:41] LABS: SARS-CoV-2 MS2 Positive; SARS-CoV-2 N Gene Positive; SARS-CoV-2 S Gene Positive; SARS-CoV-2 orf1ab Positive
[2019-10-08] MEDS: Insulin Regular 300 UNITS/3 ML VIAL SC PRN (17:46)
[2019-10-09] MEDS: CEFAZOLIN 2 GM in Premix Bag 1 BAG IVPB SCH ×3 (02:21→18:01)
[2019-10-09] MEDS: Acetaminophen 325 MG TAB PO PRN ×2 (02:30→20:55)
[2019-10-09] MEDS: Albuterol 200 PUFF (6.7GM INHALER) INH SCH ×5 (02:44→18:20)
[2019-10-09] MEDS: glipiZIDE 5 MG TAB PO SCH ×2 (08:19→16:33)
[2019-10-09] MEDS: Amlodipine 10 MG TAB PO SCH (08:19)
[2019-10-09] MEDS: Carvedilol 3.125 MG TAB PO SCH ×2 (08:19→16:33)
[2019-10-09] MEDS: predniSONE 20 MG TAB PO SCH (08:19)
[2019-10-09] MEDS: Famotidine 20 MG TAB PO SCH ×2 (08:20→20:04)
[2019-10-09] MEDS: Atorvastatin Calcium 10 MG TAB PO SCH (08:20)
[2019-10-09] MEDS: guaiFENesin ER 600 MG TAB PO SCH ×2 (08:20→20:04)
[2019-10-09] MEDS: Fluconazole 100 MG TAB PO SCH (08:20)
[2019-10-09] MEDS: metFORMIN 500 MG TAB PO SCH ×2 (08:21→20:04)
[2019-10-09] MEDS: Insulin Glargine 10 UNITS in Pre-Filled Syringe SC SCH ×2 (08:24→20:54)
[2019-10-09] MEDS: Apixaban 5 MG TAB PO SCH ×2 (10:50→20:04)
--- NOTE | 2019-10-09 15:11 | PDOC.HOSPP ---
- Subjective Encounter Date: 10/09/19 Subjective: Mr. Bonilla has been hospitalized for COVID-19 over a month now. His hypoxia is improving but he is still requiring O2. - Objective Vital Signs & Weight: Vital Signs (12 hours) Temp Pulse Resp BP Pulse Ox 10/09/19 11:45 98.5 F 78 18 120/68 90 L 10/09/19 08:25 98.2 F 72 20 115/61 94 L 10/09/19 03:20 95 Weight Admit Weight 352 lb Weight 313 lb 9.6 oz Most Recent Monitor Data Heart Rate from ECG 61 NIBP 129/81 NIBP BP-Mean 97 Respiration from ECG 19 SpO2 95 I&O: 10/08/19 10/09/19 10/10/19 06:59 06:59 06:59 Intake Total 2060 1414 Output Total 1675 1320 Balance 385 94 Result Diagrams: 10/05/19 12:14 10/05/19 12:14 Additional Labs: Accuchecks 10/09/19 10/09/19 10/08/19 12:01 05:53 21:40 POC Glucose 111 H 91 76 10/08/19 17:42 POC Glucose 223 H Hospitalist ROS - Medication Medications: Active Medications Generic Name Dose Route Start Last Admin Trade Name Freq PRN Reason Stop Dose Admin Acetaminophen 650 mg 09/07/19 22:24 10/09/19 02:30 Tylenol PO 650 mg Q4H PRN Administration Headache/Fever/Mild Pain (1-3) Albuterol Sulfate 2 puff 09/15/19 06:30 10/09/19 11:42 Proventil Hfa INH 2 puff [id number] VANDANA Administration Amlodipine Besylate 10 mg 09/08/19 09:00 10/09/19 08:19 Norvasc PO 10 mg DAILY VANDANA Administration Apixaban 5 mg 09/22/19 09:00 10/09/19 10:50 Eliquis PO Not Given BID VANDANA Atorvastatin Calcium 10 mg 09/08/19 09:00 10/09/19 08:20 Lipitor PO 10 mg DAILY VANDANA Administration Benzonatate 100 mg 09/13/19 00:18 09/30/19 05:32 Tessalon PO 100 mg TIDPRN PRN Administration Cough Bisacodyl 10 mg 09/07/19 22:24 09/30/19 11:05 Dulcolax PO 10 mg DAILYPRN PRN Administration Constipation Carvedilol 3.125 mg 09/29/19 17:00 10/09/19 08:19 Coreg PO 3.125 mg BID-WM AVNDANA Administration Chlorphenir/Hydrocodone Polistirex 10 ml 09/19/19 18:29 10/02/19 02:55 Tussionex PO 10 ml Q12H PRN Administration Cough Clonidine 0.1 mg 09/07/19 22:15 09/11/19 12:32 Catapres PO 0.1 mg BID PRN Administration SBP > 160 use second Famotidine 20 mg 09/08/19 09:00 10/09/19 08:20 Pepcid PO 20 mg BID VANDANA Administration Glipizide 5 mg 09/08/19 07:30 10/09/19 08:19 Glucotrol PO 5 mg BID-AC VANDANA Administration Guaifenesin 1,200 mg 09/19/19 21:00 10/09/19 08:20 Mucinex PO 1,200 mg Q12HR VANDANA Administration Cefazolin Sodium/Dextrose 2 gm 50 mls @ 100 mls/hr 09/26/19 18:00 10/09/19 11 :41 / Device IVPB 50 mls 0200,1000,1800 VANDANA Administration Insulin Glargine 10 units/ 0.1 mls @ 0 mls/hr 10/06/19 09:00 10/09/19 08:24 Miscellaneous Medication SC 0.1 mls BID VANDANA Administration Insulin Human Regular 0 units 09/07/19 22:16 10/08/19 17:46 Humulin R SC 4 unit .MODERATE SLIDING SC PRN Administration Moderate Correctional Scale Nystatin 0 gm 09/28/19 17:32 10/06/19 12:30 Mycostatin Powder TOP 1 applic PRN PRN Administration Rash/Topical Irritation Ondansetron HCl 4 mg 09/07/19 22:15 09/21/19 10:14 Zofran IVP 4 mg Q6H PRN Administration Nausea/Vomiting use 1st Prednisone 40 mg 10/05/19 08:00 10/09/19 08:19 Prednisone PO 40 mg QAM-WM VANDANA Administration Sodium Chloride 10 ml 09/08/19 09:00 10/09/19 08:21 Flush - Normal Saline IVF 10 ml Q12HR VANDANA Administration Sodium Chloride 10 ml 09/07/19 22:34 10/06/19 03:07 Flush - Normal Saline IVF 10 ml PRN PRN Administration Saline Flush Sterile Water 1 ml 09/15/19 12:46 10/01/19 09:20 Bacteriostatic Water FS 1 ml PRN PRN Administration RECONSTITUTION - Exam General Appearance: awake alert ENT: normocephalic atraumatic Neck: supple, no JVD Heart: RRR Respiratory: normal chest expansion, no tachypnea Extremities: no cyanosis, no clubbing, no edema Neurological: cranial nerve grossly intact, no focal deficits Hosp A/P - Plan Hosp A/P (1) Pneumonia due to COVID-19 virus Code(s): U07.1 - COVID-19; J12.89 - OTHER VIRAL PNEUMONIA Status: Acute (2) Acute respiratory failure with hypoxia Code(s): J96.01 - ACUTE RESPIRATORY FAILURE WITH HYPOXIA Status: Acute (3) MSSA bacteremia Code(s): R78.81 - BACTEREMIA; B95.61 - METHICILLIN SUSCEP STAPH INFCT CAUSING DIS CLASSD ELSWHR Status: Acute (4) Hypertension Code(s): I10 - ESSENTIAL (PRIMARY) HYPERTENSION Status: Chronic Qualifiers: Hypertension type: essential hypertension Qualified Code(s): I10 - Essential (primary) hypertension (5) Obstructive sleep apnea Code(s): G47.33 - OBSTRUCTIVE SLEEP APNEA (ADULT) (PEDIATRIC) Status: Chronic (6) Cholelithiasis Code(s): K80.20 - CALCULUS OF GALLBLADDER W/O CHOLECYSTITIS W/O OBSTRUCTION Status: Chronic Qualifiers: Cholelithiasis location: gallbladder Cholecystitis presence: without cholecystitis (7) Hyperlipidemia Code(s): E78.5 - HYPERLIPIDEMIA, UNSPECIFIED Status: Chronic (8) Morbid obesity Code(s): E66.01 - MORBID (SEVERE) OBESITY DUE TO EXCESS CALORIES Status: Chronic COVID-19 pneumonia with acute hypoxic respiratory failure that is improving gradually. Pulmonology suggested that a shunt pathology might have been contributing to his hypoxia. He will possibly require home O2 upon discharge. He received convalescent plasma and interleukin-6 inhibitor. He is also on anticoagulation with Eliquis and treatment for 1 to 3 months was recommended per pulmonology. Of note, the approach of full dose anticoagulation for DVT prophylaxis for COVID patients has been controversial as clear evidence of the superiority of therapeutic anticoagulation versus prophylactic dose anticoagulation is lacking and the [place] [employer] has recommended against full dose anticoagulation for patients without DVT or VTE. 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 3 more weeks were recommended. PICC line will be placed tomorrow. MRI of the spine was planned once his COVID test turns negative. His last test was obtained on the and it was positive. MRI will will need to be performed on an outpatient basis.
[2019-10-10] MEDS: Albuterol 200 PUFF (6.7GM INHALER) INH SCH ×6 (00:33→18:29)
[2019-10-10] MEDS: CEFAZOLIN 2 GM in Premix Bag 1 BAG IVPB SCH ×3 (02:50→18:28)
[2019-10-10] MEDS: glipiZIDE 5 MG TAB PO SCH ×2 (09:13→15:52)
[2019-10-10] MEDS: predniSONE 20 MG TAB PO SCH (09:13)
[2019-10-10] MEDS: Carvedilol 3.125 MG TAB PO SCH ×2 (09:13→15:53)
[2019-10-10] MEDS: Insulin Glargine 10 UNITS in Pre-Filled Syringe SC SCH (09:14)
[2019-10-10] MEDS: Apixaban 5 MG TAB PO SCH (09:14)
[2019-10-10] MEDS: guaiFENesin ER 600 MG TAB PO SCH (09:14)
[2019-10-10] MEDS: Famotidine 20 MG TAB PO SCH (09:14)
[2019-10-10] MEDS: Atorvastatin Calcium 10 MG TAB PO SCH (09:14)
[2019-10-10] MEDS: Amlodipine 10 MG TAB PO SCH (09:14)
[2019-10-10] MEDS: metFORMIN 500 MG TAB PO SCH (09:15)
[2019-10-10 10:00] VITALS: BMI 42.5
[2019-10-10 11:35] VITALS: TEMP 98.6
--- NOTE | 2019-10-10 13:41 | SPC ---
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 Signed, informed consent was obtained. A tourniquet was applied at the proximal aspect of the arm. Th e arm was prepped and draped in the usual sterile fashion. A 25-gauge needle was used to applied buffered lidocaine superficially. The vein was punctured with a 21-gauge micropuncture needle under u ltrasound guidance. A 0.018 inch guidewire was advanced through the micropuncture needle and into the vein. Under fluoroscopic guidance, the guidewire was advanced to the superior vena cava. The PICC was flushed and trimmed to the appropriate length. The micropuncture needle was exchanged over the guidewire for a 5 Slovak peel-away dilator sheath. The dilator was exchanged over the guidewire for t he PICC, which was then further advanced under fluoroscopy. The sheath and guidewire were removed. The PICC was flushed again and secured in place at the arm after adjustment of tip position. The ailyn ent tolerated the procedure well. There was no complication. IMPRESSION: Successful placement of PICC (peripherally inserted central catheter).
[2019-10-10] MEDS ORDERED: cefTRIAXone\\ROCEPHIN 2 GM in Sodium Chloride 0.9% 100 ML IVPB SCH (15:00)
[2019-10-10 17:54] VITALS: BP 151/89
== END 2019-10-10 19:40 | disposition home or self-care (01) | DRG 871 ==
LOC: 2SW 21:19 → SURG A 09-08 06:19 → 2SW 09-09 13:07 → CCU 09-13 14:22 → 2SW 10-02 16:26
PROVIDERS: ADMIT Internal Medicine; ATTEND Internal Medicine
PROC: 30233L1 Transfusion of Nonautologous Fresh Plasma into Peripheral Vein, Percutaneous Approach (ICD-10-PCS; principal; 2019-09-13)
PROC: 30233K1 Transfusion of Nonautologous Frozen Plasma into Peripheral Vein, Percutaneous Approach (ICD-10-PCS; 2019-09-13)
PROC: 5A09357 Assistance with Respiratory Ventilation, Less than 24 Consecutive Hours, Continuous Positive Airway Pressure (ICD-10-PCS; 2019-09-15)
PROC: 8E0ZXY6 Isolation (ICD-10-PCS; 2019-10-10)
PROC: 02HV33Z Insertion of Infusion Device into Superior Vena Cava, Percutaneous Approach (ICD-10-PCS; 2019-10-10)
PROC: B548ZZA Ultrasonography of Superior Vena Cava, Guidance (ICD-10-PCS; 2019-10-10)
PROC: B518ZZA Fluoroscopy of Superior Vena Cava, Guidance (ICD-10-PCS; 2019-10-10)
DX: A41.01 Sepsis due to Methicillin susceptible Staphylococcus aureus (principal); U07.1 COVID-19; J12.89 Other viral pneumonia; J96.01 Acute respiratory failure with hypoxia; Z68.41 Body mass index [BMI] 40.0-44.9, adult; Z16.11 Resistance to penicillins; M46.34 Infection of intervertebral disc (pyogenic), thoracic region; M46.24 Osteomyelitis of vertebra, thoracic region; K82.1 Hydrops of gallbladder; I10 Essential (primary) hypertension; K76.0 Fatty (change of) liver, not elsewhere classified; E66.01 Morbid (severe) obesity due to excess calories; E78.5 Hyperlipidemia, unspecified; K80.20 Calculus of gallbladder without cholecystitis without obstruction; E11.65 Type 2 diabetes mellitus with hyperglycemia; M54.14 Radiculopathy, thoracic region; G47.33 Obstructive sleep apnea (adult) (pediatric); D72.810 Lymphocytopenia; R00.1 Bradycardia, unspecified; M25.512 Pain in left shoulder; Z79.899 Other long term (current) drug therapy; Z79.84 Long term (current) use of oral hypoglycemic drugs
CPT/HCPCS: 36415; 36416; 36430; 36569; 71045; 72125; 74177; 76705; 78452; 80048; 80053; 80076; 81001; 82728; 82805; 83036; 83605; 83690; 83735; 83880; 84484; 85007; 85025; 85027; 85379; 85610; 85730; 86140; 86769; 86850; 86870; 86900; 86901; 86905; 86922; 87040; 87077; 87086; 87149; 87186; 87633; 87635; 93017; 93306; 94660; A9500; C1751; J0360; J0690; J0696; J1644; J1650; J1815; J1940; J2270; J2405; J2543; J2785; J2920; J3262; J3370; J3480; J3490; J7030; J7512; Q9967; U0003

== ENCOUNTER 2019-11-17 08:49 | Outpatient (CLI) | payer BC, OTHER ==
[2019-11-19 12:04] LABS: SARS-CoV-2 MS2 Positive; SARS-CoV-2 N Gene Positive; SARS-CoV-2 S Gene Negative; SARS-CoV-2 by NAA Indeterminate (NotDetected); SARS-CoV-2 orf1ab Negative
== END 2019-11-17 08:50 | disposition home or self-care (01) ==
LOC: LABSCS 08:49
PROVIDERS: ATTEND Internal Medicine Infectious Disease
DX: M46.24 Osteomyelitis of vertebra, thoracic region (principal)
CPT/HCPCS: 87635; U0003

== ENCOUNTER 2019-11-20 07:42 | Outpatient (CLI) | payer BC ==
[2019-11-20 08:26] LABS: Estimated GFR-MDRD - POC Greater than 90
--- NOTE | 2019-11-20 10:09 | MRI ---
MRI thoracic spine with and without contrast: 11/20/2019 HISTORY: 43-year-old male with mid back pain. Evaluate for thoracic osteomyelitis. FINDINGS: Vertebral body heights are maintained. No bone marrow edema. No intramedullary signal abnormality ebenezer ntified in the spinal cord on STIR sagittal sequence. T2-weighted fat-suppressed axial sequence is suboptimal for evaluating the spinal cord. No abnormal enhancement in the intramedullary, extramedull lázaro-intradural, extradural, intraosseous, or perivertebral, spaces, identified. There are disc herniations protruding into the spinal canal at several levels. The most notable 1's a re the following: At T3-4, a small central disc protrusion indenting the spinal cord. At T7-8, a moderate size central disc extrusion with superior migration of disc material to junction between pedicle and infra pedicle level of T7. This indents the spinal cord and displaces it posteriorly. At T8-9, bilateral paracentral focal moderate size disc herniations indent the bilateral anterior asp ects of the spinal cord. IMPRESSION: 1.) Disc herniations impinging on the spinal cord, largest at T7-8, followed by T8-9, and T3-4. 2) no evidence of infectious spondylitis
--- NOTE | 2019-11-20 10:22 | MRI ---
MRI cervical spine with and without contrast: 11/20/2019 HISTORY: 43-year-old male with history of septicemia presents with mid back pain suspicious for thoracic infec tious spondylitis. Concern for spread of infection to cervical spine. FINDINGS: Cervical spinal cord is normal in size and signal. Vertebral body heights are maintained. Alignment i s normal. No high-grade disc space narrowing at any level. No high-grade facet DJD. No abnormal signal or abnormal enhancement in the intramedullary, extramedullary-intradural, extradural, intraoss eous, or perivertebral, spaces. C1-2: No central stenosis. C2-3: No central or high-grade neural foraminal stenosis. C3-4: Asymmetrically moderate to large left uncinate process osteophytes causing high-grade left neur al foraminal stenosis and narrowing of the left side of the spinal canal. Small right uncinate process osteophytes cause mild right neural foraminal stenosis. C4-5: Large right uncinate process osteophytes cause severe right neural foraminal stenosis. Moderate size left uncinate process osteophytes cause moderate left neural foraminal stenosis. C5-6: Small bilateral uncinate process osteophytes. Mild bilateral neural foraminal stenosis. No high -grade central spinal canal stenosis. C6-7: Small bilateral uncinate process osteophytes. No high-grade central or high-grade neural forami nal stenosis. C7-T1: No central stenosis or high-grade neural foraminal stenosis. Bilateral nerve root sleeve cysts . IMPRESSION: 1.) No evidence of infectious cervical spondylitis. 2) multilevel bilateral neural foraminal stenosis due to uncinate process osteophytes. 3) no high-grade central spinal canal stenosis at any level.
[2019-11-20] MEDS ORDERED: Magnevist 469MG/ML 20 ML VIAL ONE ×2 (11:36)
== END 2019-11-20 07:43 | disposition home or self-care (01) ==
LOC: BICMRI 07:42
PROVIDERS: ATTEND Internal Medicine Infectious Disease
DX: M46.24 Osteomyelitis of vertebra, thoracic region (principal); M48.02 Spinal stenosis, cervical region; M25.78 Osteophyte, vertebrae; M51.24 Other intervertebral disc displacement, thoracic region
CPT/HCPCS: 72156; 72157; 82565